=== PATIENT | female | born 1945 | race Caucasian/White ===

== ENCOUNTER 2016-11-03 16:43 | Outpatient (CLI) | payer MEDICARE, OTHER | END 2016-11-03 16:44 | disposition home or self-care (01) | DX: J20.9 Acute bronchitis, unspecified (principal); R05 Cough ==

== ENCOUNTER 2017-03-10 10:06 | Outpatient (CLI) | payer MEDICARE, OTHER ==
[2017-03-10 11:32] LABS: H. PYLORI IGG ANTIBODY Negative (Negative); HPYLORI NEG QC Negative (Negative); HPYLORI POS QC POSITIVE (Positive)
[2017-03-13 20:48] LABS: TEST RESULT REPORT (())
== END 2017-03-10 10:07 | disposition home or self-care (01) ==
LOC: LAB 10:06
PROVIDERS: ATTEND Surgery
DX: K27.9 Peptic ulcer, site unspecified, unspecified as acute or chronic, without hemorrhage or perforation (principal)
CPT/HCPCS: 36415; 81599; 82310; 82941; 87339

== ENCOUNTER 2017-06-30 11:08 | Outpatient (CLI) | payer MEDICARE, OTHER ==
--- NOTE | 2017-06-30 13:15 | Ultrasound Report ---
ULTRASOUND RIGHT NECK: 06/30/2017 CLINICAL INDICATION: Palpable abnormality. TECHNIQUE: Real-time scanning was performed with public service representative static images obtained. FINDINGS: Ultrasound of the right neck was performed, directed to the palpable abnormality identifie d by the patient. The palpable abnormality, just medial to the common carotid artery, correlated wit h the inferior extent of the thyroid cartilage. No other sonographic abnormality is seen. No sonogr aphically suspicious findings are identified. No adenopathy is present. IMPRESSION: PALPABLE ABNORMALITY CORRELATES WITH THE THYROID CARTILAGE. NO SONOGRAPHICALLY SUSPICIO US FINDINGS ARE IDENTIFIED. 13:9:22 JOB #: [id number] EXT JOB #:[id number]
== END 2017-06-30 11:09 | disposition home or self-care (01) ==
LOC: DI 11:08
PROVIDERS: ATTEND Physician Assistant
DX: R22.1 Localized swelling, mass and lump, neck (principal)
CPT/HCPCS: 76536

== ENCOUNTER 2018-01-05 13:10 | Outpatient (CLI) | payer MEDICARE, OTHER ==
--- NOTE | 2018-01-06 14:59 | Mammography Report ---
DIGITAL SCREENING MAMMOGRAM: 01/05/2018 CLINICAL INDICATION: A 72-year-old for screening. COMPARISON: 01/2016, 02/2014, 01/2012, 12/2010. TECHNIQUE: Routine CC and MLO projections were obtained of the breasts. FINDINGS: The breasts demonstrate heterogeneously dense fibroglandular parenchyma bilaterally. Coarse and punctate, typically benign calcifications are present. No suspicious masses, clustered microcalcifications, or regions of architectural distortion are identified. IMPRESSION: BENIGN FINDINGS. RECOMMENDATION: Routine annual screening unless otherwise clinically indicated. BIRADS CATEGORY 2 - BENIGN FINDINGS. STANDARD QUALIFYING STATEMENTS: 1. This examination was reviewed with the aid of Computer-Aided Detection (CAD). 2. A negative or benign imaging report should not delay biopsy if clinically suspicious findings are present. Consider surgical consultation if warranted. More than 5% of cancers are not identified by imaging. 3. Dense breasts may obscure an underlying neoplasm. TD: 01/06/2018 14:58
== END 2018-01-05 13:11 | disposition home or self-care (01) ==
LOC: DI 13:10
PROVIDERS: ATTEND Physician Assistant
DX: Z12.31 Encounter for screening mammogram for malignant neoplasm of breast (principal)
CPT/HCPCS: 77067

== ENCOUNTER 2018-02-09 13:10 | Outpatient (CLI) | payer MEDICARE, OTHER ==
--- NOTE | 2018-02-11 11:56 | DEXA Report ---
DEXA SCAN: 02/09/2018 CLINICAL INDICATION: Postmenopausal. TECHNIQUE: Dual energy x-ray absorptiometry (DXA) was performed on a [employer] system. Regions measured are the AP spine, femoral neck, and, if needed, forearm. COMPARISON: None. In accordance with the International Society for Clinical Densitometry (ISCD) guidelines, data from previous exams may be reanalyzed using current recommendations and techniques. This is done to allow a more accurate basis for comparison with the current study. FINDINGS: The data for the lumbar spine is as follows: REGION BMD (g/cm/cm) T-SCORE Z-SCORE L1 0.915 -1.8 0.5 L2 1.236 0.3 2.6 L3 1.429 1.9 4.2 L4 1.325 1.0 3.3 TOTAL 1.239 0.5 2.8 NOTE: All evaluable vertebrae are used for classification. The data for the hip is as follows: REGION BMD (g/cm/cm) T-SCORE Z-SCORE Neck 0.755 -2.0 0.2 TOTAL 0.827 -1.4 0.7 NOTE: The femoral neck or total proximal femur, whichever is lowest, is used for classification. IMPRESSION: THE WHO CLASSIFICATION BASED ON THE INTERNATIONAL REFERENCE STANDARD IS OSTEOPENIA. THE FRACTURE RISK IS INCREASED. RECOMMENDATION: Patients with diagnosis of osteoporosis or osteopenia should have regular bone mineral density assessment. For those eligible for Medicare, routine testing is allowed once every 2 years. Testing frequency can be increased for patients who have rapidly progressing disease or for those who are receiving medical therapy to restore bone mass. COMMENT: World Health Organization (WHO) definitions for osteoporosis and osteopenia: NORMAL BMD: T-score at 1.0 or higher, fracture risk is low. OSTEOPENIA BMD: T-score between 1.0 and -2.5, fracture risk is increased. OSTEOPOROSIS BMD: T-score at 2.5 or lower, fracture risk high. National Osteoporosis Foundation recommends: 1. Obtain adequate dietary calcium (at least 1200 mg per day) and vitamin D (400 -800 international units per day). 2. Participate, as appropriate, in regular weightbearing and muscle- strengthening exercise. 3. Avoid tobacco use and reduce alcohol and caffeine intake. 4. For more detailed information see the website at www.NOF.org. MTDD
== END 2018-02-09 13:11 | disposition home or self-care (01) ==
LOC: DI 13:10
PROVIDERS: ATTEND Physician Assistant
DX: N95.8 Other specified menopausal and perimenopausal disorders (principal); M85.88 Other specified disorders of bone density and structure, other site
CPT/HCPCS: 77080

== ENCOUNTER 2018-04-16 08:39 | Outpatient (CLI) | payer MEDICARE, OTHER ==
--- NOTE | 2018-04-16 11:26 | Nuclear Medicine Report ---
Procedure Date: 04/16/2018 Accession Number: [id number] / [id number] Procedure: NM - Hepatobiliary HIDA w/o Rx CPT Code: FULL RESULT: EXAM: HEPATOBILIARY SCAN EXAM DATE: 04/16/2018 09:18 AM. CLINICAL HISTORY: HX OF BILROTH II. Evaluation for alkaline reflux is requested. The patient reportedly does not have gallbladder. COMPARISON: None available TECHNIQUE: Following the intravenous administration of 5.1 mCi of Tc99m Mebrofenin, a hepatobiliary scan was done centered on the right upper quadrant region in multiple sequential images and projections. Morphine sulfate given: No. Four-hour delayed images performed: No. FINDINGS: Normal extraction of tracer from the blood pool indicating normal hepatocellular function. The liver size and shape is grossly within normal limits. There is activity visualized within the bile ducts and small bowel. The intrahepatic bile ducts appear prominent. The gallbladder is absent. No enterogastric bile reflux is observed. IMPRESSION: 1. No enterogastric bile reflux is observed. 2. Patent common bile duct. RADIA
== END 2018-04-16 08:40 | disposition home or self-care (01) ==
LOC: DI 08:39
PROVIDERS: ATTEND Surgery
DX: Z90.3 Acquired absence of stomach [part of] (principal); Z90.49 Acquired absence of other specified parts of digestive tract
CPT/HCPCS: 78226

== ENCOUNTER 2018-12-15 08:13 | Outpatient (CLI) | payer MEDICARE, OTHER | END 2018-12-15 08:14 | disposition home or self-care (01) | LOC: DI 08:13 | PROVIDERS: ATTEND Specialist | DX: I20.9 Angina pectoris, unspecified (principal); R60.0 Localized edema; I08.0 Rheumatic disorders of both mitral and aortic valves; R10.11 Right upper quadrant pain; K83.8 Other specified diseases of biliary tract; Z90.49 Acquired absence of other specified parts of digestive tract; N20.0 Calculus of kidney | CPT/HCPCS: 76705; 93306 ==

== ENCOUNTER 2018-12-15 08:15 | Outpatient (CLI) | payer MEDICARE, OTHER ==
--- NOTE | 2018-12-15 12:06 | Ultrasound Report ---
Reason: RUQ,ABD PAIN Procedure Date: 12/15/2018 Accession Number: [id number] / [id number] Procedure: US - Abdomen Limited CPT Code: FULL RESULT: EXAM: ABDOMEN ULTRASOUND LIMITED, RUQ EXAM DATE: 12/15/2018 08:26 AM. CLINICAL HISTORY: Right upper quadrant, abdominal pain. COMPARISON: ABDOMEN LIMITED 02/04/2016 9:32 AM. TECHNIQUE: Real-time scanning was performed with static images obtained. FINDINGS: Liver: Normal in size and echotexture. Right lobe measures at least 14.7 cm. Main portal vein flow: Hepatopetal. A triangular shaped hyperechoic region described near the left lobe of the liver measures 2.4 1.6 x 2.5 cm and appears geographic without evidence of mass effect, not characterized. Gallbladder: Surgically absent. Biliary System: CBD measures up to 10 mm. There is also intrahepatic biliary ductal dilation. Other: The right kidney measures up to 9.9 cm and appears unremarkable with the exception of a nonobstructing 0.5 cm inferior pole calculus. IMPRESSION: Status post cholecystectomy with extra and intrahepatic biliary ductal dilation, somewhat greater then expected status post cholecystectomy. Recommend correlation to patient's symptoms and biliary markers such as alkaline phosphatase and bilirubin. If abnormal, recommend MRCP. Uncharacterized hyperechoic 2.5 cm finding in the left lobe of the liver. Differential diagnosis includes focal fatty infiltration, atypical appearance of a hemangioma as well as less likely a subtle mass. Options include short-term imaging follow-up (ultrasound in 3 months) versus complete characterization by multiphase liver imaging by CT or MRI. If MRCP is pursued, recommend performing this examination with and without contrast to characterize the finding at the same time, MRI liver mass protocol with MRCP. Nonobstructing left renal calculus, 5 mm. RADIA
== END 2018-12-15 08:16 | disposition home or self-care (01) ==
LOC: DI 08:15
PROVIDERS: ATTEND Internal Medicine
DX: R10.11 Right upper quadrant pain (principal); K83.8 Other specified diseases of biliary tract; Z90.49 Acquired absence of other specified parts of digestive tract; N20.0 Calculus of kidney
CPT/HCPCS: 76705

== ENCOUNTER 2020-07-06 08:36 | Outpatient (CLI) | payer MEDICARE, OTHER | END 2020-07-06 08:37 | disposition critical access hospital (66) | LOC: EMS 08:36 | PROVIDERS: ATTEND Surgery | DX: R55 Syncope and collapse (principal); M54.6 Pain in thoracic spine | CPT/HCPCS: A0425; A0427 ==

== ENCOUNTER 2020-07-06 08:59 | Inpatient (IN) | payer MEDICARE, OTHER ==
[2020-07-06] MEDS ORDERED: SODIUM CHLORIDE 0.9% 1,000 ML IV STA ×2 (09:08→10:20)
[2020-07-06 09:35] LABS: BILIRUBIN,URINE NEGATIVE (NEGATIVE); GLUCOSE, URINE (UA) NEGATIVE (NEGATIVE); KETONES,URINE (UA) NEGATIVE (NEGATIVE); LEUKOCYTE ESTERASE, URINE SMALL (NEGATIVE); NITRITE,URINE NEGATIVE (NEGATIVE); OCCULT BLOOD,URINE SMALL (NEGATIVE); PH,URINE 5.5 PH (5.0-7.5); PROTEIN,URINE NEGATIVE (NEGATIVE); UROBILINOGEN,URINE 0.2 (NORMAL) E.U./dL (NORMAL)
[2020-07-06 09:38] LABS: BASOPHILS % (AUTO) 0.3 %; EOSINOPHILS % (AUTO) 0.1 %; HGB - HEMOGLOBIN 8.1 g/dL (12.0-16.0); LYMPHOCYTES % (AUTO) 3.8 %; MEAN CORPUSCULAR HEMOGLOBIN 33.5 pg (27.0-31.0); MEAN CORPUSCULAR HGB CONC 32.8 g/dL (32.0-36.0); MEAN CORPUSCULAR VOLUME 102.1 fL (81.0-99.0); MEAN PLATELET VOLUME 9.1 fL (7.9-10.8); PLT - PLATELET COUNT 280 10^3/uL (130-450); RED BLOOD COUNT 2.42 10^6/uL (4.20-5.40); WHITE BLOOD COUNT 18.8 x10^3/uL (4.8-10.8)
[2020-07-06 09:44] LABS: CLARITY,URINE SL. CLOUDY (CLEAR)
[2020-07-06 09:47] LABS: ABNORMAL LYMPHS % (MANUAL) 0 %
[2020-07-06 09:53] LABS: BACTERIA,URINE Many /HPF (None Seen); RBC,URINE 0-5 /HPF (0-5); SQUAMOUS EPITHELIAL CELL,UR FEW Squamous (<= Few)
[2020-07-06 09:53] LABS: ALBUMIN 2.1 g/dL (3.2-5.5); ALBUMIN/GLOBULIN RATIO 0.9 (1.0-2.2); BILIRUBIN,TOTAL 0.6 mg/dL (0.2-1.0); CALCIUM 8.1 mg/dL (8.5-10.3); CREATININE 0.7 mg/dL (0.4-1.0); INR 1.4 (0.8-1.2); PT - PROTHROMBIN TIME 15.1 secs (9.9-12.6); TOTAL PROTEIN 4.5 g/dL (6.7-8.2)
[2020-07-06] MEDS ORDERED: cefTRIAXone 2 GM in SODIUM CHLORIDE 0.9% MINIBAG 100 ML IV STA (09:57)
--- NOTE | 2020-07-06 10:01 | ED Physician Documentation ---
History of Present Illness - Stated complaint Stated Complaint: ALOC - Chief complaint Chief Complaint: Neuro - History obtained from History obtained from: Patient, Family - Additonal information Additional information: Patient comes emergency department after experiencing a near-syncopal episode this morning. She states that she went to get out of bed and felt lightheaded and fell to the floor. She states that she did not completely lose consciousness, and knows she did not hit her head. She denies any headache or neck pain. She called for her who states that the patient seemed a li ttle "out of it" and that he helped her up. The patient states she has generalized weakness in her arms and legs which has been ongoing, and that this was not any worse than usual. She denies any focal weakness. No chest pain or shortness of breath. She states she has had to urinate frequently. Patient denies any fevers at home, but medics did report a temperature of 102 in route. Patient states that she feels slightly lightheaded in bed still and just does not feel well. The patient has her blood pressure checked at home on a daily basis, and states that she is normally in the low 100s over 50s. No other complaints at this time. No cough or sore throat. No shortness of breath. Review of Systems Ten Systems: 10 systems reviewed and negative Constitutional: reports: Other (Generalized weakness) Eyes: reports: Reviewed and negative Ears: reports: Reviewed and negative Nose: reports: Reviewed and negative Throat: reports: Reviewed and negative Cardiac: reports: Reviewed and negative Respiratory: reports: Reviewed and negative GI: denies: Nausea, Vomiting, Diarrhea : reports: Frequency Skin: reports: Reviewed and negative Musculoskeletal: reports: Reviewed and negative Neurologic: reports: Generalized weakness, Syncope (Near, secondary to lightheadedness), Altered mental status (Transient, after fall). 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: Hysterectomy - Present Medications Home Medications: Ambulatory Orders Medication Instructions Recorded Confirmed Amitriptyline HCl 150 mg PO DAILY 12/15/14 07/24/16 Ascorbic Acid [Vitamin C] 1,000 mg PO DAILY 12/15/14 07/24/16 Calcium Citrate 500 mg PO DAILY 12/15/14 07/24/16 Clobetasol Propionate 1 applic TP PRN PRN 12/15/14 07/24/16 Cranberry Fruit Extract [Cranberry] 300 mg PO DAILY 12/15/14 07/24/16 Docusate Sodium [Stool Softener] 100 mg PO DAILY 12/15/14 07/24/16 Estrogens, Conjugated [Premarin] 0.3 mg PO DAILY 12/15/14 07/24/16 Gabapentin 300 mg PO TID 12/15/14 07/24/16 Ginkgo Biloba 120 mg PO DAILY 12/15/14 07/24/16 Ibuprofen 200 mg PO DAILY 12/15/14 07/24/16 Iron 65 mg PO DAILY 12/15/14 07/24/16 Metoclopramide [Reglan] 10 mg PO TID 12/15/14 07/24/16 Montelukast Sodium 10 mg PO DAILY 12/15/14 07/24/16 Multivitamin [Multivitamins] 1 each PO DAILY 12/15/14 07/24/16 [place]-3 Fatty Acids [Fish Oil] 1,000 mg PO DAILY 12/15/14 07/24/16 Omeprazole 20 mg PO BID 12/15/14 07/24/16 Oxybutynin [Ditropan] 15 mg PO DAILY 12/15/14 07/24/16 Trazodone HCl 100 mg PO TID 12/15/14 07/24/16 methocarbamoL [Methocarbamol] 750 mg PO DAILY PRN 12/15/14 07/24/16 Fluticasone/Salmeterol [Advair 1 each IH BID 07/24/16 07/24/16 250-50 Diskus] Levothyroxine Sodium 25 mcg PO BID 07/24/16 07/24/16 buPROPion [Wellbutrin Sr] 1 tab PO DAILY 07/24/16 07/24/16 Acetaminophen [Tylenol] 500 mg PO PRN PRN 07/06/20 Albuterol Sulfate [Albuterol 2 puffs IH Q4H PRN 07/06/20 Sulfate Hfa] Furosemide [Lasix] 20 mg PO DAILY 07/06/20 Halobetasol Propionate 1 applic TP PRN PRN 07/06/20 Hydrocodone/Acetaminophen 5 - 325 mg PO Q6H PRN 07/06/20 [Hydrocodon-Acetaminophen 5-325] Mupirocin 2% Oint [Bactroban 2% 1 applic TP PRN PRN 07/06/20 Oint] Neomycin Joel/Bacitrac Zn/Poly 1 applic TP PRN PRN 07/06/20 [Neosporin Ointment] Sucralfate [Carafate] 1 gm PO QID 07/06/20 - Allergies Allergies/Adverse Reactions: Allergies Allergy/AdvReac Type Severity Reaction Status Date / Time latex AdvReac Severe Rash Verified 07/06/20 09:14 - Social History Does the pt smoke?: No Smoking Status: Never smoker Does the pt drink ETOH?: Yes Does the pt have substance abuse?: No - Immunizations Immunizations are current?: Yes PD ED PE NORMAL - Vitals Vital signs reviewed: Yes - General General: Alert and oriented X 3, No acute distress - HEENT HEENT: Atraumatic, PERRL, EOMI, Moist mucous membranes - Neck Neck: Supple, no meningeal sign, No bony TTP - Cardiac Cardiac: RRR, No murmur, Strong equal pulses - Respiratory Respiratory: No respiratory distress, Clear bilaterally - Abdomen Abdomen: Soft, Non distended, Other (Mild, right flank) - Back Back: No CVA TTP, No spinal TTP - Derm Derm: Normal color, Warm and dry, No rash - Extremities Extremities: No deformity, Other (Trace pitting edema) - Neuro Neuro: Alert and oriented X 3, automatic pinsetter adjuster 2-12 intact, No motor deficit, No sensory deficit, Normal speech - Psych Psych: Normal mood, Normal affect Results - Vitals Vitals: Vital Signs - 24 hr 07/06/20 07/06/20 07/06/20 09:00 09:55 09:57 Temperature 37.7 C H Heart Rate 107 H 102 H 103 H Respiratory 15 28 H 26 H Rate Blood Pressure 147/132 H 96/44 L 95/46 L O2 Saturation 96 94 92 07/06/20 07/06/20 07/06/20 10:27 10:50 10:57 Temperature 37.2 C Heart Rate 102 H 102 H 101 H Respiratory 28 H 18 26 H Rate Blood Pressure 94/45 L 98/55 L 93/40 L O2 Saturation 92 98 93 Oxygen O2 Source Room air - EKG (time done) 0914 Rate: Rate (enter#) (103) Rhythm: Sinus tachycardia [place]: Normal Intervals: Normal SC QRS: Normal Ischemia: Normal ST segments. No: T wave inversion Compare to prior EKG: Old EKG unavailable - Labs Labs: Laboratory Tests 07/06/20 07/06/20 07/06/20 09:15 09:25 09:25 WBC 18.8 H RBC 2.42 L Hgb 8.1 L Hct 24.7 L MCV 102.1 H MCH 33.5 H MCHC 32.8 RDW 13.0 Plt Count 280 MPV 9.1 Neut # (Auto) Not Reportable Lymph # (Auto) Not Reportable [place] # (Auto) Not Reportable Eos # (Auto) Not Reportable Baso # (Auto) Not Reportable Absolute Nucleated RBC Not Reportable Total Counted 100 Band Neuts % (Manual) 18 H Abnorm Lymph % (Manual) 0 Metamyelocytes % 2 H Nucleated RBC % Not Reportable Neutrophils # (Manual) 16.2 H Lymphocytes # (Manual) 1.7 Monocytes # (Manual) 0.4 Eosinophils # (Manual) 0.0 Basophils # (Manual) 0.2 H Differential Comment MANUAL DIFFERENTIAL WBC Morphology NORMAL APPEARANCE Platelet Estimate NORMAL (130-450,000) Platelet Morphology NORMAL ROSALBA RBC Morph Micro Appear 1+ MACROCYTOSIS PT 15.1 H INR 1.4 H Sodium Potassium Chloride Carbon Dioxide Anion Gap BUN Creatinine Estimated GFR (MDRD) Glucose Lactic Acid Calcium Total Bilirubin AST ALT Alkaline Phosphatase Troponin I High Sens Total Protein Albumin Globulin Albumin/Globulin Ratio Lipase Urine Color YELLOW Urine Clarity SL. CLOUDY Urine pH 5.5 Ur Specific Rufe 1.010 Urine Protein NEGATIVE Urine Glucose (UA) NEGATIVE Urine Ketones NEGATIVE Urine Occult Blood SMALL H Urine Nitrite NEGATIVE Urine Bilirubin NEGATIVE Urine Urobilinogen 0.2 (NORMAL) Ur Leukocyte Esterase SMALL H Urine RBC 0-5 Urine WBC 11-25 H Ur Squamous Epith Cells FEW Squamous Urine Bacteria Many H Ur Microscopic Review INDICATED Urine Culture Comments INDICATED 07/06/20 07/06/20 07/06/20 09:25 09:25 09:25 WBC RBC Hgb Hct MCV MCH MCHC RDW Plt Count MPV Neut # (Auto) Lymph # (Auto) [place] # (Auto) Eos # (Auto) Baso # (Auto) Absolute Nucleated RBC Total Counted Band Neuts % (Manual) Abnorm Lymph % (Manual) Metamyelocytes % Nucleated RBC % Neutrophils # (Manual) Lymphocytes # (Manual) Monocytes # (Manual) Eosinophils # (Manual) Basophils # (Manual) Differential Comment WBC Morphology Platelet Estimate Platelet Morphology RBC Morph Micro Appear PT INR Sodium 136 Potassium 2.6 L Chloride 99 L Carbon Dioxide 27 Anion Gap 10.0 BUN 23 H Creatinine 0.7 Estimated GFR (MDRD) 81 L Glucose 115 H Lactic Acid 1.6 Calcium 8.1 L Total Bilirubin 0.6 AST 32 ALT 19 Alkaline Phosphatase 40 L Troponin I High Sens 10.8 Total Protein 4.5 L Albumin 2.1 L Globulin 2.4 Albumin/Globulin Ratio 0.9 L Lipase 17 L Urine Color Urine Clarity Urine pH Ur Specific Rufe Urine Protein Urine Glucose (UA) Urine Ketones Urine Occult Blood Urine Nitrite Urine Bilirubin Urine Urobilinogen Ur Leukocyte Esterase Urine RBC Urine WBC Ur Squamous Epith Cells Urine Bacteria Ur Microscopic Review Urine Culture Comments PD MEDICAL DECISION MAKING - ED course Complexity details: reviewed results, re-evaluated patient, considered differential, d/w patient, d/w family ED course: Patient was worked up with labs, urinalysis, and blood cultures, and treated with IV fluids. She was found to have a positive urinalysis, white blood cell count of 18, and a normal lactic acid level. Her potassium was 2.6. Her urinalysis was positive for infection. The patient was started on Rocephin and a K rider. Her heart rate remained in the low 100s and her blood pressure in the 90s over 50s. I felt the patient should be admitted to the hospital for her urinary tract infection and possible early sepsis. Spoke with Dr. Womack, who agreed to admit the patient to her service. - Sepsis Event Current Stage of Sepsis: Sepsis Possible source of Sepsis: Genitourinary Mental/Cognitive Status: Alert/Oriented X3, Normal for patient Capillary refill: Less than 2 seconds Peripheral Pulse Strength: 3+ Normal Departure - Departure Disposition: 66 [facility] DC/Xfer Clinical Impression: Hypokalemia Sepsis Qualifiers: Sepsis type: sepsis due to unspecified organism Sepsis acute organ dysfunction status: without acute organ dysfunction Qualified Code(s): A41.9 - Sepsis, unspecified organism Urinary tract infection Qualifiers: Urinary tract infection type: acute cystitis Hematuria presence: without hematuria Qualified Code(s): N30.00 - Acute cystitis without hematuria Condition: Serious Discharge Date/Time: 07/06/20 11:40
--- NOTE | 2020-07-06 10:11 | XRAY Report ---
PROCEDURE: Chest 1 View X-Ray INDICATIONS: chest pain TECHNIQUE: One view of the chest was acquired. COMPARISON: 11/03/2016 2 view chest. FINDINGS: Surgical changes and devices: None. Lungs and pleura: No pleural effusions or pneumothorax. Lungs are clear. Mediastinum: Mediastinal contours appear normal. Heart size is normal. Bones and chest wall: No suspicious bony lesions. Overlying soft tissues appear unremarkable. IMPRESSION: Normal for age, mildly reduced inspiratory volume, source of chest pain is not found. Reviewed by: Vu Trujillo MD on 07/06/2020 10:10 AM PDT Approved by: Vu Trujillo MD on 07/06/2020 10:10 AM PDT Station ID: [id number]
[2020-07-06 10:21] LABS: BAND NEUTROPHILS % (MANUAL) 18 %; BASOPHILS # (MANUAL) 0.2 10^3/uL (0-0.1); BASOPHILS % (MANUAL) 1 %; LYMPHOCYTES # (MANUAL) 1.7 10^3/uL (1.5-3.5); LYMPHOCYTES % (MANUAL) 9 %; METAMYELOCYTES % (MANUAL) 2 %; MONOCYTES # (MANUAL) 0.4 10^3/uL (0.0-1.0)
[2020-07-06] MEDS ORDERED: POTASSIUM CHLOR 10 MEQ/100 ML 10 MEQ/100 ML BAG IV STA (10:21)
[2020-07-06 10:27] LABS: PLATELET ESTIMATE, MANUAL NORMAL (130-450,000) (NORMAL)
[2020-07-06 10:32] LABS: DIFFERENTIAL COMMENT MANUAL DIFFERENTIAL; PLATELET MORPHOLOGY NORMAL APP (NORMAL)
[2020-07-06] MEDS ORDERED: ONDANSETRON ODT 4 MG TABLET TL PRN (11:00)
[2020-07-06] MEDS ORDERED: ONDANSETRON 4 MG/2 ML VIAL IVP PRN (11:00)
[2020-07-06] MEDS ORDERED: SODIUM CHLORIDE FLUSH 0.9% 10 ML SYRINGE IVP PRN (11:00)
--- NOTE | 2020-07-06 11:15 | HISTORY & PHYSICAL EXAMINATION ---
Chief Complaint - Chief Complaint Chief Complaint: lightheaded after getting out of bed w fall History of Present Illness - Admitted From Admitted From:: Home/ER - History Obtained From Records Reviewed: [facility] History obtained from: Dr. Alvarez and patient Exam Limitations: none - History of Present Illness HPI Comment/Other: Female who has reflux disease, anxiety, asthma, and palpitations that presents with leg weakness for several days and this morning having near syncope. She denies any recent fevers, chills, cough, shortness of breath. No chest congestion no URI symptoms. She has had urgency and frequency. She had gotten out of bed and was so lightheaded she fell to the floor. She did not lose consciousness. Her try to get her up but her weakness was so severe that they came to the ER. She usually has low blood pressures in the low 100s over 50s. She cannot pinpoint when it started, but she just does not feel good. She is tearful when she says this. She just feels depressed, hopeless, but denies suicidal intention. She wishes people would just leave her alone. She does not want to leave the house. She has no get up and go. Appetite has gone down a little bit with this as well. She was triaged at 9 AM and brought in by private vehicle. Temperature was 37.7. Heart rate was 107. Blood pressure 147/132. 96% on room air. Complaining of a 9 out of 10 pain over her right arm and right hip where she fell. She was evaluated by Dr. Alvarez. She is an alert oriented female, with no dehydration. No respiratory distress. Mild right flank pain. Trace pitting edema. White cell count is 18.8. Urinalysis has many bacteria and a few squamous cells. INR is 1.4. Potassium is very low at 2.6. BUN mildly elevated at 23 but creatinine stable for her. Liver enzymes are normal. However this patient has a very low protein at 4.5, albumin at 2.1. Calcium is 8.1. Troponin is 10.8. In looking at her weight she was 55 kg in October 2015. 52.4 kg July 2016. 49 kg April 2019. And 48.5 kg today. Chest x-ray has mildly reduced respiratory volume but no infiltrate. She was treated with 2 g of Rocephin in the emergency room, 1 L of fluid. Blood pressure has started to come down and she is 93-95 systolic. Still monitor tachycardic at 101-102. 93% on room air. Dr. Alvarez is asking us to admit her as sepsis from a UTI. She does not feel that she needs a central line or transfer to ICU. History - Past Medical History Cardiovascular: reports: Hypertension, Angina (With rule out MT admission in with negative troponins), Murmur (She was sent for an echocardiogram November 2018. Ejection fraction normal at 55 to 60%. Moderate increase in left atrial volume index. Trace aortic regurgitation. Moderate mitral regurgitation. Evidence of patent foramen ovale versus atrial septal defect with [id number] shunting.), Arrhythmia (Described as palpitations) Respiratory: reports: Asthma Endocrine/Autoimmune: reports: HyPERthyroidism GI: reports: GERD (Attributed to alkaline reflux after Billroth II. Hepatobiliary HIDA scan done March 2018 shows no enterogastric bile reflux. Patent common bile duct.), GI bleed (with Bilroth II), Chronic constipation, Other (While getting an ultrasound for right upper quadrant pain in November 2018, she had a triangular-shaped hyperechoic region near the left lobe of the liver measuring 2.4 x 1.6 x 2.5 cm. Differential diagnosis included focal fatty infiltration, atypical appearance of hemangioma as less likely a subtl) FINANCE MGR: reports: Other ([id number]. I child was stillborn at . ) : reports: Chronic bladder infection HEENT: reports: None Psych: reports: Depression, Anxiety Musculoskeletal: reports: Osteoarthritis, Osteoporosis (Borderline with T score -2.0 at the femoral neck, total hip is -1.4. Fracture risk is felt to be increased according to World Health Organization definitions for osteoporosis and osteopenia.), Chronic back pain (Intermittent, and waxing and waning its intensity. MRI of the lumbar spine showed generalized aging changes of anterolisthesis, osteoarthritis, broad-based disc bulging. She had moderate julia tral canal stenosis at L4-5.) Derm: reports: Other (prone to nonspecific rashes) MRSA Hx?: No - Past Surgical History General: reports: Cholecystectomy, Appendectomy, Bowel surgery, EGD (July 2016 for reflux. Gastritis near anastomosis. Multiple erosions. Retroflexed esophageal views without abnormalities. She was to be on twice daily omeprazole and Carafate.) Ortho: reports: Rotator cuff repair ( 12/2014 but left shoulder also w tear.) /FINANCE MGR: reports: section, Hysterectomy HEENT: reports: Cataracts (surgery 10/2015) - Family & Social History Family History Comment/Other: Mom had Alzheimer's and of approximately age 97. Dad 82 with an enlarged heart, History of prostate cancer. 1 brother at age 39 from an aneurysm. Second brother alive and well. 2 d aughters healthy Living arrangement: At home Living Situation: With spouse/s.o. Social History Notes: and lives with her 3rd . He had 2 daughters from a previous relationship. She had 2 daughters with her first . second. With 3rd for 43 years. 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 She drinks 1 drink a night on a nightly basis. Either wine or scotch. Quit smoking approximately 1975. Prior to that she smoked 1 pack/day for 10 years. No hx of recreational substances. - Substance History Use: Uses substance without health or social issues: Alcohol Abuse: Recurrent use of substance despite neg consequences: NONE Dependence: Experiences withdrawal or developed tolerances: NONE - POLST Patient has POLST: No POLST Status: Full Code (She and her have talked about this. He is a DO NOT RESUSCITATE and never wants to be disabled and leave the house. Although she is talked about this with him, she has never really come to a conclusion. As such, by default, she will be full code until she decides.) Meds/Allgy - Home Medications Home Medications: Ambulatory Orders Medication Instructions Recorded Confirmed Amitriptyline HCl 150 mg PO DAILY 12/15/14 07/24/16 Ascorbic Acid [Vitamin C] 1,000 mg PO DAILY 12/15/14 07/24/16 Calcium Citrate 500 mg PO DAILY 12/15/14 07/24/16 Clobetasol Propionate 1 applic TP DAILY 12/15/14 07/24/16 Cranberry Fruit Extract [Cranberry] 300 mg PO DAILY 12/15/14 07/24/16 Docusate Sodium [Stool Softener] 100 mg PO BID 12/15/14 07/24/16 Estrogens, Conjugated [Premarin] 0.3 mg PO DAILY 12/15/14 07/24/16 Gabapentin 300 mg PO DAILY 12/15/14 07/24/16 Ginkgo Biloba 120 mg PO DAILY 12/15/14 07/24/16 Hydrocodone/Acetaminophen 1 each PO QID 12/15/14 07/24/16 [Hydrocodon-Acetaminophen 5-325] Ibuprofen 200 mg PO DAILY 12/15/14 07/24/16 Iron 65 mg PO DAILY 12/15/14 07/24/16 Metoclopramide [Reglan] 10 mg PO AC 12/15/14 07/24/16 Montelukast Sodium 10 mg PO DAILY 12/15/14 07/24/16 Multivitamin [Multivitamins] 1 each PO DAILY 12/15/14 07/24/16 Hartshorne-3 Fatty Acids [Fish Oil] 1,000 mg PO DAILY 12/15/14 07/24/16 Omeprazole 20 mg PO DAILY 12/15/14 07/24/16 Oxybutynin [Ditropan] 15 mg PO DAILY 12/15/14 07/24/16 Trazodone HCl 50 mg PO TID 12/15/14 07/24/16 methocarbamoL [Methocarbamol] 750 mg PO TID 12/15/14 07/24/16 Albuterol 2.5 mg INH Q4H PRN 10/31/15 07/24/16 Fluticasone/Salmeterol [Advair 1 each IH BID 07/24/16 07/24/16 250-50 Diskus] Levothyroxine Sodium 25 mcg PO DAILY 07/24/16 07/24/16 buPROPion [Wellbutrin Sr] 1 tab PO DAILY 07/24/16 07/24/16 Hydrocodone/Acetaminophen 1 - 2 each PO Q6H PRN #14 tablet 05/13/19 [Hydrocodon-Acetaminophen 5-325] - Allergies Allergies/Adverse Reactions: Allergies Allergy/AdvReac Type Severity Reaction Status Date / Time latex AdvReac Severe Rash Verified 07/06/20 09:14 Review of Systems - Constitutional Constitutional: reports: Fatigue, Malaise, Weakness, Poor appetite. denies: Fe jesse, Chills, Diaphoresis, Night sweats - Eyes Eyes: denies: Pain, Irritation, Amaurosis, Blurred vision, Vision loss, Dipolpia - Ears, Nose & Throat Ears, Nose & Throat: denies: Ear pain, Hearing loss, Tinnitus, Nasal obst ruction, Nasal congestion, Postnasal drainage, Sore throat, Hoarseness - Cardiovascular Cariovascular: reports: Palpitations, Lightheadedness, Exertional dyspnea, Decr. exercise tolerance (This is been chronic for several months if not over a year. She finds her self always having to use a grocery cart at [employer] to allow her to finish grocery shopping. If she did not have the grocery cart, she does not think she could complete her shopping. But it has been as subtle decrease in ex). denies: Chest pain, Edema, Syncope - Respiratory Respiratory: reports: SOB with exertion. denies: Cough, Sputum production, Whee zing, Snoring, Orthopnea, SOB at rest - Gastrointestinal Gastrointestinal: reports: Abdominal pain (Started a week ago. Right lower quadrant going up into the right mid abdomen. She always has chronic back pain so it took her a while to realize that it was her abdomen was hurting. No change in bowel habits.), Abdominal distention, Rectal bleeding (Chronic, only when she wipes after a bowel movement. Bright red blood on the toilet paper. Unchanged for a very long time.), Nausea, Reflux/heartburn, Bloating, Poor appetite. denies: Change in bowel habits, Black stools, Bloody stools, Vomiting, Coffee grounds emesis - Genitourinary Genitourinary: reports: Dysuria, Frequency, Urgency, Incontinence, Flank pain, Nocturia. denies: Hematuria, Urethral discharge - Musculoskeletal Musculoskeletal: reports: Back pain (Constantly. Chronic for decades.), Joint pain (Shoulders hips and knees. Always stiff, always ache. No swelling no redness no heat.). denies: Muscle pain - Integumentary Integumentary: reports: Rash (Red splotchy rash "comes and goes". She says there is no rhyme or reason why she gets it. Is been going on for decades.). denies: Pruritis, Lesions, Dryness - Neurological Neurological: reports: General weakness, Dizziness. denies: Focal weakness, Headache, Memory problems, Pre-existing deficit, Abnormal gait, Seizures - Psychiatric Psychiatric: reports: Depression (Always has a problem with depression. And she cannot put her finger on why it has gotten so bad over the last couple of months. Again denies being suicidal. She burst into tears as she talks about this.), Anxiety. denies: Suicidal, Delusions, Hallucinations, Homicidal - Endocrine Endocrine: denies: Polyuria, Polydypsia - Hematologic/Lymphatic Hematologic/Lymphatic: denies: Anemia, Bruising, Petechiae Prior Level of Functionality: Independent with activities of daily living. She feeds her self, dresses herself. Rarely drives a car now. Her pays the bills. She can do laundry, cleaning the house. She is much slower than she used to be. The only thing that slows her down is her decreased endurance, fatigue, and joint pain. She does not use a walker or cane. Exam - Vital Signs Reviewed Vital Signs: Yes Vital Signs: Vital Signs x48h Temp Pulse Resp BP Pulse Ox 07/06/20 10:57 101 H 26 H 93/40 L 93 07/06/20 10:50 37.2 C 102 H 18 98/55 L 98 07/06/20 10:27 102 H 28 H 94/45 L 92 07/06/20 09:57 103 H 26 H 95/46 L 92 07/06/20 09:55 102 H 28 H 96/44 L 94 07/06/20 09:00 37.7 C H 107 H 15 147/132 H 96 - Physical Exam General Appearance: positive: No acute distress, Alert, Other (4 foot 11 elderly female who weighs 50.5 kg. Voice is low, scratchy, and she usually appears near tears throughout the entire history and physical. Very anhedonic.) Eyes Bilateral: positive: PERRL, EOMI ENT: positive: Pharynx nml Neck: positive: No JVD. negative: Lymphadenopathy (R), Lymphadenopathy (L), Stiff neck Respiratory: positive: Chest non-tender. negative: Wheezes, Rales, Rhonchi Cardiovascular: positive: Regular rate & rhythm, Systolic murmur. negative: Gallop/S4, Friction rub Peripheral Pulses: positive: 1+ Abdomen: positive: No organomegaly, Nml bowel sounds, No distention, Tenderness (Right mid abdomen, with deep palpation.). negative: Guarding, Rebound Back: positive: CVA tenderness (R). negative: CVA tenderness (L) Skin: positive: Warm, Dry, Pallor Extremities: positive: Non-tender, Full ROM, Nml appearance, Pedal edema (trace, nonpitting) Neurologic/Psychiatric: positive: Oriented x3, CN's nml (2-12), Motor nml, Weakness, Other (she appears frail, depressed, constantly near tears. This is not related to this admission but a more chronic problem.) Sepsis Event Note (H) - Evaluation Possible source of Sepsis: positive: Genitourinary Conclusion/Plan - Problem List (1) Sepsis Conclusion/Plan: She meets criteria with fever, white cell count, tachycardia. Her low blood pressure is not felt to be shock in that she always runs low at home. Source is felt to be /UTI. Plan: Inpatient status to [facility] initially Frequent vital signs to make sure shock does not develop with transfer to ICU Sepsis order set/protocol Qualifiers: Sepsis type: sepsis due to unspecified organism Sepsis acute organ dysfunction status: without acute organ dysfunction Qualified Code(s): A41.9 - Sepsis, unspecified organism (2) Urinary tract infection Conclusion/Plan: Order sets for sepsis protocol use Rocephin. She is received 2 g in the emergency room. Will start 1 g daily. Plan: Adjust antibiotics on the basis of blood or urine cultures. Retroperitoneal ultrasound to make sure the flank pain is not pyelonephritis Qualifiers: Urinary tract infection type: acute cystitis Hematuria presence: without hematuria Qualified Code(s): N30.00 - Acute cystitis without hematuria (3) Hypokalemia Conclusion/Plan: Started on supplementation in the emergency room. We will recheck levels again this afternoon to make sure she is adequately supplemented. (4) Protein, serum, decreased level Conclusion/Plan: 4 kg weight loss noted in record between last year and this year. We will have nutrition consult assess. (5) HTN (hypertension) Conclusion/Plan: By history. In looking at her medication list she is not on any hypertensive medications. Family states that her blood pressure usually low in the low 100s. Here she is 93-98 systolic after initial presentation. Plan: Reassess after 2 L of normal saline Qualifiers: Hypertension type: essential hypertension Qualified Code(s): I10 - Essential (primary) hypertension (6) History of asthma Conclusion/Plan: Medication list includes nebulizers, Singulair. We will continue with as needed nebulizers here, daily Singulair. (7) Depression with anxiety Conclusion/Plan: Medication list shows her to be on Wellbutrin and trazodone. We will resume those medications while here. - Lab Results Lab results reviewed: Yes Fish Bones: 07/06/20 09:25 07/06/20 09:25 - Diagnostic Imaging Results Diagnostic Imaging Results: positive: Final report reviewed Diagnostic Imaging Results Comments: Chest x-ray with mildly reduced inspiratory volume. No pleural effusions, pneumothorax, infiltrates. Core Measures - Anticipated LOS I expect patient to be DC'd or transferred within 96 hours.: Yes - DVT/VTE - Prophylaxis VTE/DVT Device ordered at admit?: Yes
[2020-07-06] MEDS: oxyCODONE 5 MG TABLET PO PRN ×2 (12:34→21:31)
[2020-07-06] MEDS ORDERED: ALBUTEROL NEB 2.5 MG/3 ML INH PRN (15:58)
[2020-07-06] MEDS: ACETAMINOPHEN 325 MG TABLET PO PRN (16:44)
--- NOTE | 2020-07-06 18:14 | PHARMACY PROGRESS NOTE ---
- Best Possible Medication History Admit Date and Time: 07/06/20 1100 Processed by: Pharmacy Medication History completed: Yes Patient Interview: Completed Secondary Source(s): Written medication list, Spouse/Significant other, Physician records (NOTES PROVIDED WHERE PATIENT-REPORTED MEDICATION INFO DIFFERED FROM MD RECORDS) As the person ultimately responsible for medication therapy, providers are able to order a medication from an existing home medication list in [facility] via the "Reconcile Routine" prior to Confirmation of that medication by sales support technician. Such practice is discouraged except when the physician, in their clinical judgment, deems that a medical need exists for a medication without regard to previous use.
[2020-07-06] MEDS ORDERED: POTASSIUM CHLORIDE 20 MEQ TABLET PO ONE (19:14)
[2020-07-06] MEDS: FORMOTEROL FUMARATE NEB 20 MCG/2 ML INH SCH (19:21)
[2020-07-06] MEDS: BUDESONIDE 0.5 MG/2 ML NEB INH SCH (19:22)
[2020-07-06] MEDS: POTASSIUM CHLOR 10 MEQ/100 ML 10 MEQ/100 ML BAG IV SCH ×2 (20:29→22:09)
[2020-07-06] MEDS: SODIUM CHLORIDE FLUSH 0.9% 10 ML SYRINGE IVP SCH (20:29)
[2020-07-06] MEDS: GABAPENTIN 300 MG CAPSULE PO SCH (21:24)
[2020-07-06] MEDS: traZODone 50 MG TABLET PO SCH (21:24)
[2020-07-06] MEDS: AMITRIPTYLINE 25 MG TABLET PO SCH (21:24)
[2020-07-07] MEDS: SODIUM CHLORIDE FLUSH 0.9% 10 ML SYRINGE IVP SCH ×4 (00:14→23:43)
[2020-07-07] MEDS: ACETAMINOPHEN 325 MG TABLET PO PRN ×2 (00:22→19:23)
[2020-07-07 06:15] LABS: BASOPHILS # (AUTO) 0.1 10^3/uL (0.0-0.1); BASOPHILS % (AUTO) 0.5 %; EOSINOPHILS % (AUTO) 0.2 %; HGB - HEMOGLOBIN 8.2 g/dL (12.0-16.0); LYMPHOCYTES # (AUTO) 0.8 10^3/uL (1.5-3.5); LYMPHOCYTES % (AUTO) 5.2 %; MEAN CORPUSCULAR HEMOGLOBIN 33.1 pg (27.0-31.0); MEAN CORPUSCULAR HGB CONC 32.2 g/dL (32.0-36.0); MEAN CORPUSCULAR VOLUME 102.8 fL (81.0-99.0); MEAN PLATELET VOLUME 9.4 fL (7.9-10.8); MONOCYTES # (AUTO) 0.7 10^3/uL (0.0-1.0); MONOCYTES % (AUTO) 4.1 %; NEUTROPHILS % (AUTO) 85.9 %; PLT - PLATELET COUNT 241 10^3/uL (130-450); RED BLOOD COUNT 2.48 10^6/uL (4.20-5.40); RED CELL DISTRIBUTION WIDTH 13.4 % (12.0-15.0); WHITE BLOOD COUNT 16.3 x10^3/uL (4.8-10.8)
[2020-07-07 06:24] LABS: CALCIUM 7.6 mg/dL (8.5-10.3); CREATININE 0.8 mg/dL (0.4-1.0)
[2020-07-07] MEDS: LEVOTHYROXINE 25 MCG TABLET PO SCH (06:27)
[2020-07-07] MEDS: traZODone 50 MG TABLET PO SCH ×2 (06:27→14:55)
[2020-07-07 06:47] LABS: PLATELET ESTIMATE, MANUAL NORMAL (130-450,000) (NORMAL); PLATELET MORPHOLOGY NORMAL APPEARANCE (NORMAL); RBC MORPHOLOGY (MULTIPLE) 1+ MACROCYTOSIS (NORMAL)
[2020-07-07] MEDS: HYDROcod/ACETAM 5/325 MG TABLET PO PRN (08:14)
[2020-07-07] MEDS: BUDESONIDE 0.5 MG/2 ML NEB INH SCH ×2 (08:59→19:44)
[2020-07-07] MEDS: FORMOTEROL FUMARATE NEB 20 MCG/2 ML INH SCH ×2 (08:59→19:44)
[2020-07-07] MEDS ORDERED: cefTRIAXone 1 GM in SODIUM CHLORIDE 0.9% MINIBAG 100 ML IV SCH (09:00)
--- NOTE | 2020-07-07 12:58 | PROVIDER PROGRESS NOTE ---
Subjective - Prog Note Date Prog Note Date: 07/07/20 Prog Note Time: 13:03 - Subjective Pt reports feeling: Improved Subjective: She is just very, very tired. She denies cough, shortness of breath, wheezing. Denies any belly pain. Appetite poor. Current Medications - Current Medications Current Medications: Active Medications Acetaminophen (Tylenol) 650 mg PO Q4HR PRN PRN Reason: Pain 1 to 4 Last Admin: 07/07/20 00:22 Dose: 650 mg Documented by: Hydrocodone Bitart/Acetaminophen ([place] 5/325) 1 tab PO Q6H PRN PRN Reason: PAIN Last Admin: 07/07/20 08:14 Dose: 1 tab Documented by: Albuterol () 2.5 mg INH RTQ4H PRN PRN Reason: Wheezing Last Admin: 07/07/20 08:58 Dose: 2.5 mg Documented by: Amitriptyline HCl (Elavil) 150 mg PO QPM [facility] Last Admin: 07/06/20 21:24 Dose: 150 mg Documented by: Budesonide (Pulmicort) 0.5 mg INH RTBID RENEE Last Admin: 07/07/20 08:59 Dose: 0.5 mg Documented by: Formoterol Fumarate (Perforomist) 20 mcg INH RTBID RENEE Last Admin: 07/07/20 08:59 Dose: 20 mcg Documented by: Gabapentin (Neurontin) 300 mg PO QPM [facility] Last Admin: 07/06/20 21:24 Dose: 300 mg Documented by: Ceftriaxone Sodium 1 gm/ (Sodium Chloride) 100 mls @ 200 mls/hr IV DAILY [facility] Last Infusion: 07/07/20 09:10 Dose: Infused Documented by: Levothyroxine Sodium (Synthroid) 25 mcg PO QDAC [facility] Last Admin: 07/07/20 06:27 Dose: 25 mcg Documented by: Ondansetron HCl (Zofran Odt) 4 mg TL Q6HR PRN PRN Reason: Nausea / Vomiting Ondansetron HCl (Zofran Inj) 4 mg IVP Q6HR PRN PRN Reason: Nausea / Vomiting Oxycodone HCl (Roxicodone) 5 mg PO Q4HR PRN PRN Reason: Pain 5 to 7 Last Admin: 07/06/20 21:31 Dose: 5 mg Documented by: Potassium Chloride (K-Dur) 40 meq PO ONCE ONE Stop: 07/07/20 13:01 Sodium Chloride (Normal Saline Flush 0.9%) 10 ml IVP PRN PRN PRN Reason: NEEDED PER PROVIDER ORDERS Sodium Chloride (Normal Saline Flush 0.9%) 10 ml IVP 0100,0900,1700 [facility] Last Admin: 07/07/20 08:07 Dose: 10 ml Documented by: Trazodone HCl (Desyrel) 50 mg PO TID [facility] Last Admin: 07/07/20 06:27 Dose: 50 mg Documented by: Amitriptyline HCl 150 mg PO DAILY 12/15/14 Ascorbic Acid [Vitamin C] 1,000 mg PO DAILY 12/15/14 Calcium Citrate 500 mg PO DAILY 12/15/14 Clobetasol Propionate 1 applic TP PRN PRN 12/15/14 Cranberry Fruit Extract [Cranberry] 300 mg PO DAILY 12/15/14 Docusate Sodium [Stool Softener] 100 mg PO DAILY 12/15/14 Estrogens, Conjugated [Premarin] 0.3 mg PO DAILY 12/15/14 Gabapentin 300 mg PO TID 12/15/14 Ginkgo Biloba 120 mg PO DAILY 12/15/14 Ibuprofen 200 mg PO DAILY 12/15/14 Iron 65 mg PO DAILY 12/15/14 Metoclopramide [Reglan] 10 mg PO TID 12/15/14 Montelukast Sodium 10 mg PO DAILY 12/15/14 Multivitamin [Multivitamins] 1 each PO DAILY 12/15/14 Beaver-3 Fatty Acids [Fish Oil] 1,000 mg PO DAILY 12/15/14 Omeprazole 20 mg PO BID 12/15/14 Oxybutynin [Ditropan] 15 mg PO DAILY 12/15/14 Trazodone HCl 100 mg PO TID 12/15/14 methocarbamoL [Methocarbamol] 750 mg PO DAILY PRN 12/15/14 Fluticasone/Salmeterol [Advair 250-50 Diskus] 1 each IH BID 07/24/16 Levothyroxine Sodium 25 mcg PO BID 07/24/16 buPROPion [Wellbutrin Sr] 1 tab PO DAILY 07/24/16 Acetaminophen [Tylenol] 500 mg PO PRN PRN 07/06/20 Albuterol Sulfate [Albuterol Sulfate Hfa] 2 puffs IH Q4H PRN 07/06/20 Furosemide [Lasix] 20 mg PO DAILY 07/06/20 Halobetasol Propionate 1 applic TP PRN PRN 07/06/20 Hydrocodone/Acetaminophen [Hydrocodon-Acetaminophen 5-325] 5 - 325 mg PO Q6H PRN 07/06/20 Mupirocin 2% Oint [Bactroban 2% Oint] 1 applic TP PRN PRN 07/06/20 Neomycin Joel/Bacitrac Zn/Poly [Neosporin Ointment] 1 applic TP PRN PRN 07/06/20 Sucralfate [Carafate] 1 gm PO QID 07/06/20 Objective - Vital Signs/Intake & Output Reviewed Vital Signs: Yes Vital Signs: Vital Signs x48h Temp Pulse Pulse Resp BP Pulse Ox 07/07/20 09:01 102 H 20 07/07/20 08:00 37.6 C H 102 H 21 115/81 H 96 Intake & Output: Intake & Output 07/04/20 07/05/20 07/06/20 07/07/20 23:59 23:59 23:59 23:59 Intake Total 3116.667 440 Balance 3116.667 440 - Objective General Appearance: positive: No acute distress, Alert, Other (Flat affect, withdrawn personality, no longer tearful, laying quietly in bed without any respiratory distress or pain) Eyes Bilateral: positive: PERRL, EOMI ENT: positive: No signs of dehydration Neck: positive: No JVD. negative: Stiff neck Respiratory: positive: Chest non-tender. negative: Wheezes, Rales, Rhonchi Cardiovascular: positive: Regular rate & rhythm. negative: Gallop/S4, Friction rub Abdomen: positive: Non-tender, No organomegaly, Nml bowel sounds, No distention Skin: positive: Warm, Dry, Pallor Extremities: positive: Non-tender, No pedal edema Neurologic/Psychiatric: positive: Oriented x3, CN's nml (2-12), Motor nml - Lab Results Fish Bones: 07/07/20 05:35 07/07/20 05:35 Other Labs: Lab Results x24hrs 07/07/20 07/07/20 Range/Units 05:35 05:35 WBC 16.3 H (4.8-10.8) x10^3/uL RBC 2.48 L (4.20-5.40) 10^6/uL Hgb 8.2 L (12.0-16.0) g/dL Hct 25.5 L (37.0-47.0) % MCV 102.8 H (81.0-99.0) fL MCH 33.1 H (27.0-31.0) pg MCHC 32.2 (32.0-36.0) g/dL RDW 13.4 (12.0-15.0) % Plt Count 241 (130-450) 10^3/uL MPV 9.4 (7.9-10.8) fL Neut # (Auto) 14.0 H (1.5-6.6) 10^3/uL Lymph # (Auto) 0.8 L (1.5-3.5) 10^3/uL Jack # (Auto) 0.7 (0.0-1.0) 10^3/uL Eos # (Auto) 0.0 (0.0-0.7) 10^3/uL Baso # (Auto) 0.1 (0.0-0.1) 10^3/uL Absolute Nucleated RBC 0.00 x10^3/uL Nucleated RBC % 0.0 /100WBC Manual Slide Review Indicated Platelet Estimate NORMAL (130-450,000) (NORMAL) Platelet Morphology NORMAL APPEARANCE (NORMAL) RBC Morph Micro Appear 1+ MACROCYTOSIS (NORMAL) Sodium 133 L (135-145) mmol/L Potassium 3.2 L (3.5-5.0) mmol/L Chloride 102 (101-111) mmol/L Carbon Dioxide 23 (21-32) mmol/L Anion Gap 8.0 (6-13) BUN 25 H (6-20) mg/dL Creatinine 0.8 (0.4-1.0) mg/dL Estimated GFR (MDRD) 70 L (>89) Glucose 114 H (70-100) mg/dL Calcium 7.6 L (8.5-10.3) mg/dL ABX Reporting Has patient been on IV antibiotics over the past 48 hours?: Yes Sepsis Event Note (H) - Evaluation Current Stage of Sepsis: Sepsis Possible source of Sepsis: positive: Genitourinary - Sepsis Criteria Sepsis Criteria: Recorded Temperature greater than 38.3C or Less than 36C, Recorded Heart Rate greater than 90 bpm, Recorded Respiratory Rate greater than 20, Respiratory: Increasing oxygen requirements, WBC count greater than 12,000 or less than 4000, SBP drop more than 40mHg Assessment/Plan - Problem List (1) Sepsis Impression: 07/06:She meets criteria with fever, white cell count, tachycardia. Her low blood pressure is not felt to be shock in that she always runs low at home. Source is felt to be /UTI. Plan: Inpatient status to [facility] initially Frequent vital signs to make sure shock does not develop with transfer to ICU Sepsis order set/protocol 07/07: Still having a fever. At midnight she was 38.4. This morning 37.6. Tachycardia had slowed down overnight. 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 By 9 AM she was 102. White cell count was 18.8 and is come down to 16.3. Blood cultures, all sets are growing E. col So diagnosis of E. coli bacteremia is added. Urine culture is been received. No report yet. Plan: Continue IV antibiotics until afebrile then transition to p.o. especially once identification and sensitivities are present. Continue to monitor blood pressure. So far no need to transfer to ICU. Qualifiers: Sepsis type: sepsis due to Ecoli Sepsis acute organ dysfunction status: without acute organ dysfunction Qualified Code(s): A41.9 - Sepsis, unspecified organism (2) Urinary tract infection Conclusion/Plan: 07/06:Order sets for sepsis protocol use Rocephin. She is received 2 g in the emergency room. Will start 1 g daily. Plan: Adjust antibiotics on the basis of blood or urine cultures. Retroperitoneal ultrasound to make sure the flank pain is not pyelonephritis 07/07: Retroperitoneal ultrasound was not ordered. Will do so today. Cultures are pending. Blood cultures are positive. We will presume that her urine is positive for E. coli as well. Currently on ceftriaxone. Will transition to p.o. when identification and sensitivities return. Qualifiers: Urinary tract infection type: acute cystitis Hematuria presence: without hematuria Qualified Code(s): N30.00 - Acute cystitis without hematuria (3) Hypokalemia Conclusion/Plan: 07/06: Started on supplementation in the emergency room. We will recheck levels again this afternoon to make sure she is adequately supplemented. 9/19: She received both IV riders and p.o. supplementation since yesterday. This morning she is still low at 3.2. Will give 40 medical events p.o. and recheck in a.m. (4) Protein, serum, decreased level Conclusion/Plan: 4 kg weight loss noted in record between last year and this year. We will have nutrition consult assess. (5) HTN (hypertension) Conclusion/Plan: By history. In looking at her medication list she is not on any hypertensive medications. Family states that her blood pressure usually low in the low 100s. Here she is 93-98 systolic after initial presentation. Plan: Reassess after 2 L of normal saline 07/07: Yesterday upon transfer to the [facility] floor she was 93/43. Since then she went up to 110 systolic, this morning she is 115 systolic. Plan: No new orders And no new IV fluids since the 2 L bolus yesterday Qualifiers: Hypertension type: essential hypertension Qualified Code(s): I10 - Essential (primary) hypertension (6) History of asthma Conclusion/Plan: Medication list includes nebulizers, Singulair. We will continue with as needed nebulizers here, daily Singulair. (7) Depression with anxiety Conclusion/Plan: Medication list shows her to be on Wellbutrin and trazodone. We will resume those medications while here. 07/07: Pharmacy has verified her medication list. Nursing was concerned because she is on trazodone 100 mg 3 times a day. Pharmacy verifies that that is correct. (8) macrocytic anemia Conclusion/plan: Anemic as far back as the EMR goes for us which is 2014. In 2014 she was 11.6 g of hemoglobin. 2015 she was 10.6 and 10.8. In 2020 she has been 8.1/8.2. Macrocytic. 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 Alcohol intake varies between 1-2 drinks. She states that she does not drink more than that. Plan: Check TSH Check B12 folate (2) Urinary tract infection Qualifiers: Urinary tract infection type: acute cystitis Hematuria presence: without hematuria Qualified Code(s): N30.00 - Acute cystitis without hematuria (5) HTN (hypertension) Qualifiers: Hypertension type: essential hypertension Qualified Code(s): I10 - Essential (primary) hypertension
[2020-07-07] MEDS ORDERED: POTASSIUM CHLORIDE 20 MEQ TABLET PO ONE (13:00)
--- NOTE | 2020-07-07 15:02 | XRAY Report ---
PROCEDURE: Chest 1 View X-Ray INDICATIONS: sudde on loc and food in mouth TECHNIQUE: One view of the chest was acquired. COMPARISON: 07/06/2020 FINDINGS: Surgical changes and devices: Epigastric clips are seen. Lungs and pleura: Small bilateral pleural effusions are seen. Overlying streaky opacities are seen. Lung volumes are low. No pneumothorax is seen. Mediastinum: Mediastinal contours appear normal. Heart size is normal. Bones and chest wall: No suspicious bony lesions. Overlying soft tissues appear unremarkable. IMPRESSION: Small bilateral pleural effusions, with presumed atelectasis at the lung bases. In this patient with this given history, please also consider developing aspiration pneumonia. Low lung volumes. Epigastric clips are seen. Reviewed by: Shola Bradley MD on 07/07/2020 2:00 PM AKNED Approved by: Shola Bradley MD on 07/07/2020 2:00 PM HOA Station ID: [id number]
[2020-07-07 15:03] LABS: ABG BASE EXCESS 1.6 mmol/L (-2.0-3.0); ABG HCO3 25.3 mmol/L (22.0-26.0); ABG OXYGEN SATURATION 92 % (94-98); ABG PCO2 36 mmHg (34-45); ABG PH 7.47 (7.35-7.45); ABG PO2 73 mmHg (80-100); ABG TCO2 26.3 MMOL/L (21.0-29.0); ALLEN TEST POSITIVE
[2020-07-07 15:04] LABS: ABG FRACTION OF INSPIRED O2 0.21
--- NOTE | 2020-07-07 15:07 | Ultrasound Report ---
PROCEDURE: Retroperitoneal INDICATIONS: e coli uti/ sepsis TECHNIQUE: Real-time scanning was performed of the retroperitoneal organs, with image documentation. COMPARISON: 12/15/2018 FINDINGS: This study is limited by the patient's inability to cooperate with the examination. Kidneys: Kidneys are normal in size. Right kidney measures 11.5 cm long; left kidney measures 11.3 cm long. Right renal cortical thickness is 1.4 cm; left renal cortical thickness is 1.7 cm. No panchito d masses are seen. The previously seen right-sided stone is not seen on the current study. The right kidney demonstrates moderate to prominent hydronephrosis, with the renal pelvis measuring u p to 2.1 cm. Echogenic debris seen within the right renal pelvis. Bladder: The bladder volume measures 44 cc. Only the left ureteral jet can be seen. Miscellaneous: No free abdominal fluid. IMPRESSION: Moderate to prominent right-sided hydronephrosis. The previously seen right-sided stone is not seen a nd there is no right-sided ureteral jet seen. Please consider obstructive uropathy. If clinically appropriate, please consider a follow-up noncontrast CT for further evaluation. Reviewed by: Shola Bradley MD on 07/07/2020 2:06 PM HOA Approved by: Shola Bradley MD on 07/07/2020 2:06 PM HOA Station ID: [id number]
[2020-07-07 18:35] LABS: CALCIUM 8.2 mg/dL (8.5-10.3); CREATININE 0.9 mg/dL (0.4-1.0)
[2020-07-07] MEDS ORDERED: LACTATED RINGERS 1,000 ML IV ONE (19:22)
[2020-07-07] MEDS ORDERED: IOVERSOL 320 100 ML VIAL IVP ONE ×2 (19:32→20:41)
--- NOTE | 2020-07-07 20:55 | CT Report ---
PROCEDURE: Abdomen/Pelvis W INDICATIONS: Sepsis. UTI. Hydronephrosis. CONTRAST: IV CONTRAST: Optiray 320 ml: 100 PO CONTRAST: *NO PO CONTRAST TECHNIQUE: After the administration of intravenous contrast, 5 mm thick sections acquired from the diaphragms to the symphysis. 5 mm thick coronal and sagittal reformats were acquired. For radiation dose reducti on, the following was used: automated exposure control, adjustment of mA and/or kV according to duy ent size. COMPARISON: None. FINDINGS: Image quality: Excellent. ABDOMEN: Lung bases: Small bilateral pleural effusions with overlying atelectasis. Urinary tract: There is an obstructing calculus in the proximal right ureter measuring approximately 12 mm (series 6 image 21 and series 3 image 41). This produces moderate hydronephrosis and hydrourete r proximally. There is the leg and and striated nephrogram on the right indicative of pyelonephritis. There is air within the right ureter proximal to the calculus. No urinary tract calculus, hydronephr osis, or hydroureter on the left. Urinary bladder unremarkable. Solid organs: Liver and spleen are normal in size and enhancement. Gallbladder has been removed. 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 Fatty atrophy of the pancreas. No adrenal nodules. Peritoneum and bowel: There are several scattered loops of small bowel measuring up to 4 cm. No fluid levels. No findings of closed loop obstruction. No significant ascites or free fluid. No pneumoperit oneum. Nodes and vessels: No retroperitoneal or mesenteric adenopathy by size criteria. Aorta and inferior vena cava are normal in size. Miscellaneous: No ventral hernias. Diffuse anasarca. PELVIS: No metatarsal enlarged pelvic or inguinal lymph nodes. Pelvic osseous structures intact. IMPRESSION: Pyelonephritis and with moderate hydroureteronephrosis secondary to an obstructing 12 mm right ureter al calculus. The presence of gas within the ureter proximal to the calculus suggests infection with g as-forming bacteria. Scattered threshold enlarged loops of small bowel without transition point or definite evidence of ob struction. Findings suggestive of volume overload or third spacing of fluid, with diffuse anasarca, small volume pleural effusions, and mild edema of the intra-abdominal fat. Reviewed by: Keyur Mccullough MD on 07/07/2020 8:53 PM PDT Approved by: Keyur Mccullough MD on 07/07/2020 8:53 PM PDT Station ID: [id number]
--- NOTE | 2020-07-07 21:45 | PROVIDER PROGRESS NOTE ---
Case Assistant Note - Case Assistant Note Case Assistant Note: CT of the abdomen and pelvis was ordered this evening as renal ultrasound was concerning for hydronephrosis and possible obstructive uropathy. CT reveals pyelonephritis with moderate hydronephrosis and an obstructing 12 mm right ureteral stone. The patient had also been febrile this evening with a temperature of 39.3 C. I broaden her antibiotics to meropenem IV from ceftriaxone IV. So far her cultures are growing E. coli in the blood and urine but sensitivities are pending. I spoke with urology at [facility] regarding transfer and they felt the patient needed a nephrostomy tube. I spoke with the greenhouse or nursery transplanter at [facility] who stated they did not have interventional radiology available until Thursday. Given the patient is still septic, Thursday is likely too late for intervention. The patient lives in the [facility] and so I spoke with [facility] and they stated they do not have beds this evening but they should have a bed available tomorrow morning and they do have interventional radiology available. I spoke with the patient regarding this information and I mentioned to her that I could call [facility] in [place] for potential transfer but she does not want to go there. Given that at this time, she is hemodynamically stable, transfer is not warranted overnight and so we will keep her hospitalized here on IV antibiotics and we will call [facility] in [place] tomorrow morning again to set up transfer and she will be able to get a nephrostomy tube tomorrow. If the patient declines overnight for hemodynamic standpoint, will call [facility] again or call other facilities to discuss expedited transfer.
[2020-07-07] MEDS: MEROPENEM 1 GM in SODIUM CHLORIDE 0.9% MINIBAG 100 ML IV SCH (21:50)
[2020-07-07] MEDS: GABAPENTIN 300 MG CAPSULE PO SCH (21:50)
[2020-07-07] MEDS: AMITRIPTYLINE 25 MG TABLET PO SCH (21:50)
[2020-07-08] MEDS: HYDROcod/ACETAM 5/325 MG TABLET PO PRN ×2 (01:04→08:56)
[2020-07-08] MEDS: oxyCODONE 5 MG TABLET PO PRN ×2 (02:25→14:22)
[2020-07-08] MEDS: MEROPENEM 1 GM in SODIUM CHLORIDE 0.9% MINIBAG 100 ML IV SCH (05:09)
[2020-07-08 06:13] LABS: BASOPHILS # (AUTO) 0.1 10^3/uL (0.0-0.1); BASOPHILS % (AUTO) 0.4 %; EOSINOPHILS % (AUTO) 0.1 %; HGB - HEMOGLOBIN 7.8 g/dL (12.0-16.0); LYMPHOCYTES # (AUTO) 0.5 10^3/uL (1.5-3.5); LYMPHOCYTES % (AUTO) 2.7 %; MEAN CORPUSCULAR HEMOGLOBIN 33.3 pg (27.0-31.0); MEAN CORPUSCULAR HGB CONC 32.2 g/dL (32.0-36.0); MEAN CORPUSCULAR VOLUME 103.4 fL (81.0-99.0); MEAN PLATELET VOLUME 9.2 fL (7.9-10.8); MONOCYTES % (AUTO) 5.7 %; NEUTROPHILS # (AUTO) 15.3 10^3/uL (1.5-6.6); NEUTROPHILS % (AUTO) 90.3 %; PLT - PLATELET COUNT 177 10^3/uL (130-450); RED BLOOD COUNT 2.34 10^6/uL (4.20-5.40); RED CELL DISTRIBUTION WIDTH 13.2 % (12.0-15.0); WHITE BLOOD COUNT 16.9 x10^3/uL (4.8-10.8)
[2020-07-08 06:25] LABS: CALCIUM 7.9 mg/dL (8.5-10.3); CREATININE 0.7 mg/dL (0.4-1.0)
[2020-07-08] MEDS: LEVOTHYROXINE 25 MCG TABLET PO SCH (06:26)
[2020-07-08 06:45] LABS: THYROID STIMULATING HORMONE 6.06 uIU/mL (0.34-5.60)
[2020-07-08] MEDS: FORMOTEROL FUMARATE NEB 20 MCG/2 ML INH SCH (09:30)
[2020-07-08] MEDS: BUDESONIDE 0.5 MG/2 ML NEB INH SCH (09:30)
[2020-07-08] MEDS ORDERED: cefTRIAXone 1 GM in SODIUM CHLORIDE 0.9% MINIBAG 100 ML IV SCH (11:00)
[2020-07-08] MEDS: SODIUM CHLORIDE FLUSH 0.9% 10 ML SYRINGE IVP SCH (11:01)
--- NOTE | 2020-07-08 11:53 | Discharge Plan ---
Discharge Plan Problem Reviewed?: Yes Disposition: 02 Transfer Acute Care Hosp Condition: Serious No Smoking: If you smoke, Please STOP! Call for help. Follow-up with: ARUNA CLAYTON [Primary Care Provider] -
--- NOTE | 2020-07-08 11:57 | DISCHARGE SUMMARY ---
"Discharge Summary Admit Date: 07/06/20 Discharge Date: 07/08/20 Discharging Provider: Dara Womack MD Primary Care Provider: Parmjit Rai MD/Annie Agustin PAC Code Status: Attempt Resuscitation Condition at Discharge: Serious Discharge Disposition: 02 Transfer Acute Care Hosp Discharge Facility Name: [facility] - DIAGNOSES Discharge Diagnoses with Status of Each Condition: 1. Sepsis with UTI 2. E. coli UTI 3. E. coli bacteremia 4. Obstructive uropathy 5. Nephrolithiasis 6. Hypokalemia 7. Essential hypertension 8. Unspecified depression with anxiety disorder (on amitriptyline 150 mg daily, gabapentin 300 mg 3 times daily, methocarbamol 750 mg daily, trazodone 100 mg p.o. 3 times daily, Wellbutrin 100 mg daily) 9. Macrocytic anemia. 10. Abnormal liver ultrasound November 2018. - HPI History of Present Illness: Female who has reflux disease, anxiety, asthma, and palpitations that presents with leg weakness for several days and this morning having near syncope. She denies any recent fevers, chills, cough, shortness of breath. No chest congestion no URI symptoms. She has had urgency and frequency. She had gotten out of bed and was so lightheaded she fell to the floor. She did not lose consciousness. Her try to get her up but her weakness was so severe that they came to the ER. She usually has low blood pressures in the low 100s over 50s. She cannot pinpoint when it started, but she just does not feel good. She is tearful when she says this. She just feels depressed, hopeless, but denies suicidal intention. She wishes people would just leave her alone. She does not want to leave the house. She has no get up and go. Appetite has gone down a little bit with this as well. She was triaged at 9 AM and brought in by private vehicle. Temperature was 37.7. Heart rate was 107. Blood pressure 147/132. 96% on room air. Complaining of a 9 out of 10 pain over her right arm and right hip where she fell. She was evaluated by Dr. Alvarez. She is an alert oriented female, with no dehydration. No respiratory distress. Mild right flank pain. Trace pitting edema. White cell count is 18.8. Urinalysis has many bacteria and a few squamous cells. INR is 1.4. Potassium is very low at 2.6. BUN mildly elevated at 23 but creatinine stable for her. Liver enzymes are normal. However this patient has a very low protein at 4.5, albumin at 2.1. Calcium is 8.1. Troponin is 10.8. In looking at her weight she was 55 kg in October 2015. 52.4 kg July 2016. 49 kg April 2019. And 48.5 kg today. Chest x-ray has mildly reduced respiratory volume but no infiltrate. She was treated with 2 g of Rocephin in the emergency room, 1 L of fluid. Blood pressure has started to come down and she is 93-95 systolic. Still monitor tachycardic at 101-102. 93% on room air. Dr. Alvarez is asking us to admit her as sepsis from a UTI. She does not feel that she needs a central line or transfer to ICU. - Past Medical History Cardiovascular: reports: Hypertension, Angina (With rule out MA admission in 2014 with negative troponins), Murmur (She was sent for an echocardiogram November 2018. Ejection fraction normal at 55 to 60%. Moderate increase in left atrial volume index. Trace aortic regurgitation. Moderate mitral regurgitation. Evidence of patent foramen ovale versus atrial septal defect with [id number] shunting.), Arrhythmia (Described as palpitations) Respiratory: reports: Asthma Endocrine/Autoimmune: reports: HyPERthyroidism GI: reports: GERD (Attributed to alkaline reflux after Billroth II. Hepatobiliary HIDA scan done March 2018 shows no enterogastric bile reflux. Patent common bile duct.), GI bleed (with Bilroth II), Chronic constipation, Other (While getting an ultrasound for right upper quadrant pain in November 2018, she had a triangular-shaped hyperechoic region near the left lobe of the liver measuring 2.4 x 1.6 x 2.5 cm. Differential diagnosis included focal fatty infiltration, atypical appearance of hemangioma as less likely a subtl) [employer]: reports: Other ([id number]. I child was stillborn at . ) : reports: Chronic bladder infection HEENT: reports: None Psych: reports: Depression, Anxiety Musculoskeletal: reports: Osteoarthritis, Osteoporosis (Borderline with T score -2.0 at the femoral neck, total hip is -1.4. Fracture risk is felt to be increased according to World Health Organization definitions for osteoporosis and osteopenia.), Chronic back pain (Intermittent, and waxing and waning its intensity. MRI of the lumbar spine showed generalized aging changes of anterolisthesis, osteoarthritis, broad-based disc bulging. She had moderate central canal stenosis at L4-5.) Derm: reports: Other (prone to nonspecific rashes) MRSA Hx?: No - CONSULTS | PROCEDURES Procedures: 1. Chest x-ray normal for age, mildly reduced inspiratory volume. 2. Possible aspiration was repeat chest x-ray showing small bilateral pleural effusions. Presumed atelectasis at lung bases. Low lung volumes. Overlying streaky opacities. 3. Retroperitoneal ultrasound with moderate to prominent right-sided hydronephrosis. Previously seen right-sided stone is not seen and there is no right-sided ureteral jets seen. Please consider obstructive uropathy. 4. Abdomen pelvis CT with small bilateral pleural effusions and overlying atelectasis. Obstructing calculus in the proximal right ureter measuring 12 mm. Moderate hydronephrosis and hydroureter proximally. Changes indicative of pyelonephritis. Air within the right ureter. No urinary tract calculus, hydronephrosis or hydroureter on the left. Intrahepatic and extrahepatic biliary ducts dilated compatible with postcholecystectomy reservoir phenomenon. Several scattered loops of small bowel measuring up to 4 cm. No fluid levels. Diffuse anasarca. 5. Blood culture July 06 with all bottles positive for E. coli 6. Urine culture July 06+ for E. coli - HOSPITAL COURSE Hospital Course: The patient was admitted and treated as sepsis with a UTI. Sepsis criteria improved but blood cultures and urine cultures grew out E. coli. Because of flank pain a retroperitoneal ultrasound was done and showed her to have obstruction but no stone. CT KUB confirmed obstructing 12 mm stone on the right side. Hospitalist reached out to [facility] because this patient will need an intervention. Dr. John Haynes accepted the patient on July 08. The other issue noted during her stay was that of multiple medications at high doses for treatment of her depression. We reduced her trazodone while here. Her had not been really aware of the dosing or the medications. He went home and look them up and feels that he may be talking to her primary care provider about reducing some of the doses. She spends most of her time sleeping and nodding off at dinner, cars, etc. Also noted an abnormal hepatic ultrasound with no follow-up ultrasound in the outpatient setting. Since many patients have follow-up care and other facilities beside our facility, the patient may have had an ultrasound somewhere else. Would follow with primary care provider on this issue. The day before discharge the patient was profoundly sleepy, more than she had been on admitting. Repeat labs were done. Essentially unchanged from admission. Troponin high-sensitivity was 32 and mildly elevated from July 06 troponin of 10. EKG was without changes. We do not feel that this troponin is clinically significant of a cardiac event. She has macrocytic anemia and B12 was done and normal if not elevated at 1805. TSH was mildly elevated at 6.06. 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 She states that she drinks 1 glass of wine a day. Suspicion is that she may be drinking more than that. But there is no evidence of alcohol withdrawal during her stay. At discharge temperature is 36.6. Pulse 92. Respirations 20. Blood pressure 137/55. She is 92% on room air. This morning she is still sleepy but more responsive. She knows where she is, why she is here. She says that she is just miserable with diffuse pain. She does not specifically complain of flank pain at this time. Neck is supple not stiff. Lungs have slow, shallow unlabored respiration. Diminished at the bases but no crackles rhonchi wheezing or incr eased respiratory effort. PMI is normally placed with a regular rate and rhythm. The abdomen has hypoactive bowel sounds, nondistended, nontender. Extremities are warm without cyanosis, or edema. Greater than 30 minutes was spent coordinating discharge. Case discussed with Dr. Haynes, patient's . - ALLERGIES Allergies/Adverse Reactions: Allergies Allergy/AdvReac Type Severity Reaction Status Date / Time latex AdvReac Severe Rash Verified 07/06/20 09:14 - MEDICATIONS Home Medications: Ambulatory Orders Medication Instructions Recorded Confirmed Amitriptyline HCl 150 mg PO DAILY 12/15/14 07/06/20 Ascorbic Acid [Vitamin C] 1,000 mg PO DAILY 12/15/14 07/24/16 Calcium Citrate 500 mg PO DAILY 12/15/14 07/06/20 Clobetasol Propionate 1 applic TP PRN PRN 12/15/14 07/06/20 Cranberry Fruit Extract [Cranberry] 300 mg PO DAILY 12/15/14 07/24/16 Docusate Sodium [Stool Softener] 100 mg PO DAILY 12/15/14 07/06/20 Estrogens, Conjugated [Premarin] 0.3 mg PO DAILY 12/15/14 07/24/16 Gabapentin 300 mg PO TID 12/15/14 07/06/20 Ginkgo Biloba 120 mg PO DAILY 12/15/14 07/24/16 Ibuprofen 200 mg PO DAILY 12/15/14 07/06/20 Iron 65 mg PO DAILY 12/15/14 07/24/16 Metoclopramide [Reglan] 10 mg PO TID 12/15/14 07/06/20 Montelukast Sodium 10 mg PO DAILY 12/15/14 07/06/20 Multivitamin [Multivitamins] 1 each PO DAILY 12/15/14 07/06/20 Bingham-3 Fatty Acids [Fish Oil] 1,000 mg PO DAILY 12/15/14 07/06/20 Omeprazole 20 mg PO BID 12/15/14 07/06/20 Oxybutynin [Ditropan] 15 mg PO DAILY 12/15/14 07/06/20 Trazodone HCl 100 mg PO TID 12/15/14 07/06/20 methocarbamoL [Methocarbamol] 750 mg PO DAILY PRN 12/15/14 07/06/20 Fluticasone/Salmeterol [Advair 1 each IH BID 07/24/16 07/06/20 250-50 Diskus] Levothyroxine Sodium 25 mcg PO BID 07/24/16 07/06/20 buPROPion [Wellbutrin Sr] 1 tab PO DAILY 07/24/16 07/06/20 Acetaminophen [Tylenol] 500 mg PO PRN PRN 07/06/20 07/06/20 Albuterol Sulfate [Albuterol 2 puffs IH Q4H PRN 07/06/20 07/06/20 Sulfate Hfa] Furosemide [Lasix] 20 mg PO DAILY 07/06/20 07/06/20 Halobetasol Propionate 1 applic TP PRN PRN 07/06/20 07/06/20 Hydrocodone/Acetaminophen 5 - 325 mg PO Q6H PRN 07/06/20 07/06/20 [Hydrocodon-Acetaminophen 5-325] Mupirocin 2% Oint [Bactroban 2% 1 applic TP PRN PRN 07/06/20 07/06/20 Oint] Neomycin Joel/Bacitrac Zn/Poly 1 applic TP PRN PRN 07/06/20 07/06/20 [Neosporin Ointment] Sucralfate [Carafate] 1 gm PO QID 07/06/20 07/06/20 - LABS Result Diagrams: 07/08/20 06:05 07/08/20 06:05 - SEPSIS Current Stage of Sepsis: Sepsis Possible source of Sepsis: Genitourinary Sepsis Criteria: Recorded Temperature greater than 38.3C or Less than 36C, Recorded Heart Rate greater than 90 bpm, Recorded Respiratory Rate greater than 20, Respiratory: Increasing oxygen requirements, WBC count greater than 12,000 or less than 4000, SBP drop more than 40mHg"
[2020-07-08 14:36] VITALS: BP 126/62
== END 2020-07-08 15:03 | disposition short-term general hospital (02) | DRG 872 ==
LOC: EDUNIT# → ED 08:59 → MS2 11:00
PROVIDERS: ADMIT Specialist; ATTEND Specialist
DX: A41.9 Sepsis, unspecified organism (principal); A41.51 Sepsis due to Escherichia coli [E. coli]; N30.00 Acute cystitis without hematuria; N13.6 Pyonephrosis; N12 Tubulo-interstitial nephritis, not specified as acute or chronic; N20.0 Calculus of kidney; E05.90 Thyrotoxicosis, unspecified without thyrotoxic crisis or storm; I10 Essential (primary) hypertension; F32.9 Major depressive disorder, single episode, unspecified; E87.6 Hypokalemia; F41.8 Other specified anxiety disorders; D53.9 Nutritional anemia, unspecified; R93.2 Abnormal findings on diagnostic imaging of liver and biliary tract; K21.9 Gastro-esophageal reflux disease without esophagitis; J45.909 Unspecified asthma, uncomplicated; N95.2 Postmenopausal atrophic vaginitis; Z86.711 Personal history of pulmonary embolism; Z87.891 Personal history of nicotine dependence; M54.9 Dorsalgia, unspecified; G89.29 Other chronic pain; W18.30XA Fall on same level, unspecified, initial encounter; Y92.013 Bedroom of single-family (private) house as the place of occurrence of the external cause; R53.1 Weakness; R06.00 Dyspnea, unspecified
CPT/HCPCS: 36415; 36600; 71045; 74177; 76770; 80048; 80053; 81001; 81599; 82607; 82803; 83605; 83690; 84443; 84484; 85025; 85610; 87040; 87077; 87086; 87181; 93005; 94640; 96360; 99283; 99285; A9270; J2185; J7120; J7626; Q9967; 81003; 82746; 82747

== ENCOUNTER 2020-07-08 14:52 | Outpatient (CLI) | payer MEDICARE, OTHER | END 2020-07-08 14:53 | disposition short-term general hospital (02) | LOC: EMS 14:52 | PROVIDERS: ATTEND Surgery | DX: N20.0 Calculus of kidney (principal) | CPT/HCPCS: A0425; A0428 ==

== ENCOUNTER 2020-08-23 14:29 | Outpatient (CLI) | payer MEDICARE, OTHER ==
--- NOTE | 2020-08-23 16:13 | Ultrasound Report ---
PROCEDURE: Retroperitoneal INDICATIONS: HISTORY OF NEPHROLITHIASIS TECHNIQUE: Real-time scanning was performed of the retroperitoneal organs, with image documentation. COMPARISON: CT abdomen pelvis 07/07/2020 FINDINGS: Kidneys: Kidneys are normal in size. Right kidney measures 10 point cm long; left kidney measures 1 0.2 cm long. Right renal cortical thickness is 1.2 cm; left renal cortical thickness is 1.2 cm. No solid masses. Severe right hydronephrosis and proximal hydroureter. Areas of increased echogenicity are identified in the lower pole of the right kidney measuring 7 x 4 x 6 mm and 10 x 6 x 11 mm. Bladder: No bladder masses. Prevoid volume measures 2 32 cc. Postvoid residual 3.2 cc. Bilateral uret eral jets are identified. IMPRESSION: 1. Severe right hydronephrosis and hydroureter. Source of obstruction is not identified. However, it could be secondary to further distal migration of previously identified proximal right ureteral calcu iona. As clinically indicated, CT may be obtained for additional evaluation. 2. Previous appearance of right renal pyelonephritis appears resolved. Reviewed by: Dalrene Dunn MD on 08/23/2020 4:11 PM PST Approved by: Darlene Dunn MD on 08/23/2020 4:11 PM PST Station ID: [id number]
== END 2020-08-23 14:30 | disposition home or self-care (01) ==
LOC: DI 14:29
PROVIDERS: ATTEND Urology
DX: N13.30 Unspecified hydronephrosis (principal)
CPT/HCPCS: 76770

== ENCOUNTER 2020-10-04 11:42 | Outpatient (CLI) | payer MEDICARE, OTHER ==
[2020-10-04] MEDS ORDERED: IOVERSOL 320 100 ML VIAL IVP ONE ×2 (12:15→16:50)
--- NOTE | 2020-10-04 14:21 | CT Report ---
PROCEDURE: IVP INDICATIONS: HYDROURETERONEPHROSIS CONTRAST: IV CONTRAST: Optiray 320 ml: 100 PO CONTRAST: *NO PO CONTRAST TECHNIQUE: After the administration of intravenous contrast, 5 mm thick sections acquired from the diaphragms to the symphysis. 5 mm thick coronal and sagittal reformats were acquired. For radiation dose reducti on, the following was used: automated exposure control, adjustment of mA and/or kV according to duy ent size. COMPARISON: Prior CT abdomen/pelvis 07/07/2020.. FINDINGS: Image quality: Excellent. Lung bases: Lung bases are clear. Heart size is normal. Urinary system: Both kidneys are normal in size but there is a small degree of asymmetric enhancemen t, reduced on the right to a mild degree. There is persistent hydronephrosis on the right, in this pa tient with recent prior CT scanning 07/07/2020 documenting a 1 cm impacted proximal ureteral stone jus t below the renal pelvis on the right, with prominent hypoechoic enhancement of the lower third of th e right kidney, potentially representing pyelonephritis above the obstructed. Contrast-filled renal calyces are normal in morphology on the left but no contrast is excreted into the right collecting sy stem. Contrast filled portions of the left ureter is normal in caliber. Along the course of the rig ht ureter, which is not opacified, no dilatation is seen. Bladder wall thickness is normal. Note is made of several punctate calculi within the posterior collecting system of the right kidney, potentia lly a manifestation of lithotripsy and retrograde migration of the small 2 mm fragments. Solid organs: Liver and spleen are normal in size and enhancement. Gallbladder has been previously resected and again noted is central as was present on prior CT scanning. Pancreas enhances normally. No adrenal nodules. Peritoneum and bowel: Bowel loops demonstrate normal wall thickness and caliber. No free fluid or a ir. Nodes and vessels: No retroperitoneal or mesenteric adenopathy by size criteria. Aorta and inferior vena cava are normal in size. Abdominal wall: No ventral hernias. Pelvis: No pathologic free pelvic fluid. No inguinal hernias or adenopathy. Bones: No suspicious bony lesions. No vertebral body compression fractures. IMPRESSION: 1. Right-sided hydronephrosis persists despite what appears to have been either lithotripsy or other method of stone extraction at the proximal right ureter where a 1 cm ovoid stone had been impacted wi th associated injury to the renal cortex of the right kidney 07/07/2020. The etiology of persistent hy dronephrosis given absence of that original stone is uncertain, and is not associated with a definite mass, and could represent sequela of scarring related to the stone presence. Urology consultation is recommended, retrograde stent placement may be warranted given this persistence and the current abse nce of excretion of intravenous contrast through the right renal collecting system.. 2. Prior cholecystectomy. There has been a somewhat prominent degree of residual persistent biliary d istention both within the liver parenchyma centrally and within the common duct. The current common h epatic duct caliber is 1.6 cm. Correlation with liver function tests may be warranted to confirm abse nce of significant biliary hypertension.. Reviewed by: Vu Trujillo MD on 10/04/2020 2:20 PM PST Approved by: Vu Trujillo MD on 10/04/2020 2:20 PM PST Station ID: [id number]
== END 2020-10-04 11:43 | disposition home or self-care (01) ==
LOC: DI 11:42
PROVIDERS: ATTEND Urology
DX: N13.30 Unspecified hydronephrosis (principal); Z87.442 Personal history of urinary calculi; Z87.440 Personal history of urinary (tract) infections; K83.8 Other specified diseases of biliary tract; Z90.49 Acquired absence of other specified parts of digestive tract
CPT/HCPCS: 74178; Q9967

== ENCOUNTER 2021-05-09 15:10 | Outpatient (CLI) | payer MEDICARE, OTHER ==
--- NOTE | 2021-05-09 17:05 | Ultrasound Report ---
PROCEDURE: Retroperitoneal INDICATIONS: HYDRONEPHROSIS TECHNIQUE: Real-time scanning was performed of the retroperitoneal organs, with image documentation. COMPARISON: Prior CT IVP dated 10/04/2020. FINDINGS: Kidneys: Kidneys are normal in size. Right kidney measures 9.1 cm long; left kidney measures 10.5 c m long. Right renal cortical thickness is 1.4 cm; left renal cortical thickness is 1.4 cm. Right ur eteral stent present incompletely visualized. Moderate right hydronephrosis which appear similar to p rior examination. 10 mm right inferior pole calcification. Bladder: Prevoid volume estimated at 58 cc no post void residual. Left ureteral stent present. IMPRESSION: 1. Right ureteral stent present and there is moderate right hydronephrosis which is similar to prior CT scan. 2. 1.0 cm right inferior pole renal calcification. Reviewed by: CARLOS MANUEL Crenshaw on 05/09/2021 5:04 PM PDT Approved by: Darlene Dunn MD on 05/09/2021 5:04 PM PDT Station ID: [id number]
== END 2021-05-09 15:11 | disposition home or self-care (01) ==
LOC: DI 15:10
PROVIDERS: ATTEND Urology
DX: N13.30 Unspecified hydronephrosis (principal); N28.89 Other specified disorders of kidney and ureter; Z96.0 Presence of urogenital implants

== ENCOUNTER 2021-06-11 12:38 | Emergency (ER) | payer MEDICARE, OTHER ==
--- NOTE | 2021-06-11 13:54 | ED Physician Documentation ---
PD HPI ABD PAIN - Stated complaint Stated Complaint: SHAKING/CANT WALK - Chief complaint Chief Complaint: Abd Pain - History obtained from History obtained from: Patient - History of Present Illness Timing - onset: How many days ago (2) Timing - duration: Days (2) Timing - details: Gradual onset, Still present (worsened significantly into today, with nausea, shakiness, general weakness to point of unable to walk, right lower to flank abd pain. No fevers.) Quality: Cramping, Aching, Pain Location: RLQ Radiation: Right flank. No: Chest, Lower back Associated symptoms: Nausea, Dysuria, Loss of appetite. No: Fever, Vomiting, Diarrhea, Constipation, Hematuria, Near syncope / syncope Similar symptoms before: Has not had sx before Recently seen: Clinic (she states had right kidney stone that needed urologic stenting and then stone removed, per patient, several months ago, and has stent still in place. Has planned appt with Dr. Buckner in 2 days in office for stent removal. Having the pain and some dysuria now.), Emergency Dept Review of Systems Constitutional: reports: Myalgias. denies: Fever, Chills Nose: denies: Rhinorrhea / runny nose, Congestion Throat: denies: Sore throat Respiratory: denies: Cough GI: reports: Abdominal Pain, Nausea. denies: Vomiting, Constipation, Diarrhea : reports: Dysuria. denies: Hematuria Skin: denies: Rash, Lesions Musculoskeletal: reports: Back pain. denies: Neck pain PD PAST MEDICAL HISTORY - Past Medical History Cardiovascular: Hypertension Respiratory: Asthma Endocrine/Autoimmune: HyPERthyroidism GI: None BIOLOGICAL TECHNICAL OFFICER: Other ([id number]. I child was stillborn at . ) : None HEENT: None Psych: Depression Musculoskeletal: Osteoarthritis Derm: None - Past Surgical History Past Surgical History: Yes General: Cholecystectomy, Appendectomy, Bowel surgery Ortho: Rotator cuff repair ( 12/2014 but left shoulder also w tear.) /BIOLOGICAL TECHNICAL OFFICER: Hysterectomy HEENT: Cataracts (surgery 10/2015) - Present Medications Home Medications: Ambulatory Orders Medication Instructions Recorded Confirmed Amitriptyline HCl 150 mg PO DAILY 12/15/14 07/06/20 Ascorbic Acid [Vitamin C] 1,000 mg PO DAILY 12/15/14 07/24/16 Calcium Citrate 500 mg PO DAILY 12/15/14 07/06/20 Clobetasol Propionate 1 applic TP PRN PRN 12/15/14 07/06/20 Cranberry Fruit Extract [Cranberry] 300 mg PO DAILY 12/15/14 07/24/16 Docusate Sodium [Stool Softener] 100 mg PO DAILY 12/15/14 07/06/20 Estrogens, Conjugated [Premarin] 0.3 mg PO DAILY 12/15/14 07/24/16 Gabapentin 300 mg PO TID 12/15/14 07/06/20 Ginkgo Biloba 120 mg PO DAILY 12/15/14 07/24/16 Ibuprofen 200 mg PO DAILY 12/15/14 07/06/20 Iron 65 mg PO DAILY 12/15/14 07/24/16 Metoclopramide [Reglan] 10 mg PO TID 12/15/14 07/06/20 Montelukast Sodium 10 mg PO DAILY 12/15/14 07/06/20 Multivitamin [Multivitamins] 1 each PO DAILY 12/15/14 07/06/20 [place]-3 Fatty Acids [Fish Oil] 1,000 mg PO DAILY 12/15/14 07/06/20 Omeprazole 20 mg PO BID 12/15/14 07/06/20 Oxybutynin [Ditropan] 15 mg PO DAILY 12/15/14 07/06/20 Trazodone HCl 100 mg PO TID 12/15/14 07/06/20 methocarbamoL [Methocarbamol] 750 mg PO DAILY PRN 12/15/14 07/06/20 Fluticasone/Salmeterol [Advair 1 each IH BID 07/24/16 07/06/20 250-50 Diskus] Levothyroxine Sodium 25 mcg PO BID 07/24/16 07/06/20 buPROPion [Wellbutrin Sr] 1 tab PO DAILY 07/24/16 07/06/20 Acetaminophen [Tylenol] 500 mg PO PRN PRN 07/06/20 07/06/20 Albuterol Sulfate [Albuterol 2 puffs IH Q4H PRN 07/06/20 07/06/20 Sulfate Hfa] Furosemide [Lasix] 20 mg PO DAILY 07/06/20 07/06/20 Halobetasol Propionate 1 applic TP PRN PRN 07/06/20 07/06/20 Hydrocodone/Acetaminophen 5 - 325 mg PO Q6H PRN 07/06/20 07/06/20 [Hydrocodon-Acetaminophen 5-325] Mupirocin 2% Oint [Bactroban 2% 1 applic TP PRN PRN 07/06/20 07/06/20 Oint] Neomycin Joel/Bacitrac Zn/Poly 1 applic TP PRN PRN 07/06/20 07/06/20 [Neosporin Ointment] Sucralfate [Carafate] 1 gm PO QID 07/06/20 07/06/20 cephALEXin [Keflex] 500 mg PO TID #20 cap 06/11/21 - Allergies Allergies/Adverse Reactions: Allergies Allergy/AdvReac Type Severity Reaction Status Date / Time latex AdvReac Severe Rash Verified 06/11/21 12:42 - Social History Does the pt smoke?: No Smoking Status: Never smoker Does the pt drink ETOH?: Yes Does the pt have substance abuse?: No - Immunizations Immunizations are current?: Yes - POLST Patient has POLST: No POLST Status: Full Code (She and her have talked about this. He is a DO NOT RESUSCITATE and never wants to be disabled and leave the house. Although she is talked about this with him, she has never really come to a conclusion. As such, by default, she will be full code until she decides.) PD ED PE NORMAL - Vitals Vital signs reviewed: Yes - General General: Alert and oriented X 3, Well developed/nourished, Other (appears shaky in general, and having weakness for lifting legs off bed. ) - Cardiac Cardiac: RRR, No murmur - Respiratory Respiratory: Clear bilaterally - Abdomen Abdomen: Normal bowel sounds, Soft, Non tender - Female Female : Deferred - Rectal Rectal: Deferred - Back Back: No CVA TTP - Derm Derm: Normal color, Warm and dry - Extremities Extremities: No tenderness to palpate, Normal ROM s pain, No edema, No calf tenderness / cord - Neuro Neuro: Alert and oriented X 3, No sensory deficit, Normal speech, Other (general weakness arms and legs, legs more so. ) Results - Vitals Vitals: Vital Signs - 24 hr 06/11/21 06/11/21 06/11/21 12:42 14:51 16:00 Temperature 37.5 C Heart Rate 93 86 83 Respiratory 16 16 15 Rate Blood Pressure 118/55 L 140/111 H 107/43 L O2 Saturation 97 96 95 06/11/21 17:52 Temperature Heart Rate 81 Respiratory 16 Rate Blood Pressure 103/45 L O2 Saturation 96 Oxygen O2 Source Room air - Labs Labs: Laboratory Tests 06/11/21 06/11/21 06/11/21 14:00 14:21 14:21 WBC 21.3 H RBC 3.38 L Hgb 10.0 L Hct 31.6 L MCV 93.5 MCH 29.6 MCHC 31.6 L RDW 13.4 Plt Count 329 MPV 8.8 Neut # (Auto) 18.9 H Lymph # (Auto) 0.7 L [place] # (Auto) 1.5 H Eos # (Auto) 0.0 Baso # (Auto) 0.1 Absolute Nucleated RBC 0.00 Nucleated RBC % 0.0 RBC Morph Micro Appear 1+ ANISOCYTOSIS Sodium 135 Potassium 3.0 L Chloride 97 L Carbon Dioxide 24 Anion Gap 14.0 H BUN 22 H Creatinine 1.1 H Estimated GFR (MDRD) 48 L Glucose 119 H Lactic Acid Calcium 9.2 Magnesium 1.6 L Total Bilirubin 0.7 AST 13 ALT < 10 L Alkaline Phosphatase 94 Total Protein 7.5 Albumin 3.2 Globulin 4.3 H Albumin/Globulin Ratio 0.7 L Lipase 19 L Urine Color YELLOW Urine Clarity HAZY Urine pH 6.0 Ur Specific [place] 1.010 Urine Protein 30 H Urine Glucose (UA) NEGATIVE Urine Ketones NEGATIVE Urine Occult Blood SMALL H Urine Nitrite NEGATIVE Urine Bilirubin NEGATIVE Urine Urobilinogen 0.2 (NORMAL) Ur Leukocyte Esterase LARGE H Urine RBC 0-5 Urine WBC >25 H Urine WBC Clumps PRESENT Ur Squamous Epith Cells NONE SEEN Urine Bacteria Many H Ur Microscopic Review INDICATED Urine Culture Comments INDICATED 06/11/21 15:11 WBC RBC Hgb Hct MCV MCH MCHC RDW Plt Count MPV Neut # (Auto) Lymph # (Auto) [place] # (Auto) Eos # (Auto) Baso # (Auto) Absolute Nucleated RBC Nucleated RBC % RBC Morph Micro Appear Sodium Potassium Chloride Carbon Dioxide Anion Gap BUN Creatinine Estimated GFR (MDRD) Glucose Lactic Acid 1.6 Calcium Magnesium Total Bilirubin AST ALT Alkaline Phosphatase Total Protein Albumin Globulin Albumin/Globulin Ratio Lipase Urine Color Urine Clarity Urine pH Ur Specific [place] Urine Protein Urine Glucose (UA) Urine Ketones Urine Occult Blood Urine Nitrite Urine Bilirubin Urine Urobilinogen Ur Leukocyte Esterase Urine RBC Urine WBC Urine WBC Clumps Ur Squamous Epith Cells Urine Bacteria Ur Microscopic Review Urine Culture Comments - Rads (name of study) abd/pelvic CT Radiology: Prelim report reviewed (no stones. ureteral stent is in place. Some hydroureter and nephrosis above it. No diverticulitis. ), See rad report PD MEDICAL DECISION MAKING - ED course Complexity details: reviewed results, re-evaluated patient (she ambulated fairly well to bathroom on her own (mild shufling of feet). Her general weakness seems improved. ), d/w patient, d/w independent crop consultant (inserter promotional item urology Dr Meng, who said the stent is not a problem in the setting of UTI as not occluding flow. Rx with antibiotics and have pt see Dr. Buckner in 2 days as planned. ) Departure - Departure Disposition: 01 Home, Self Care Clinical Impression: General weakness, S/P ureteral stent placement UTI (urinary tract infection) Qualifiers: Urinary tract infection type: site unspecified Hematuria presence: without hematuria Qualified Code(s): N39.0 - Urinary tract infection, site not specified Leukocytosis Qualifiers: Leukocytosis type: unspecified Qualified Code(s): D72.829 - Elevated white blood cell count, unspecified Condition: Stable Record reviewed to determine appropriate education?: Yes Instructions: ED Kidney Infec Female Follow-Up: Levon Kirby DO [Primary Care Provider] - Carine Buckner MD [Provider Admit Priv/Credential] - Prescriptions: cephALEXin [Keflex] 500 mg PO TID #20 cap Comments: Your symptoms seem likely related to a urinary tract infection. The ER ureteral stent is still in place. I talked with the on-call urologist in he thought it was appropriate to just treat for the urinary tract infection. Since there are no stones to block the way or such, the stent does not need to be removed right now but just treat the urinary tract infection. Stay well-hydrated. Tylenol if needed for fevers or pains. Cephalexin antibiotic as directed. Follow-up with Dr. Buckner as planned. Return to the ER sooner if worsening general symptoms, fever, vomiting, worse pain etc. Discharge Date/Time: 06/11/21 17:53
[2021-06-11] MEDS ORDERED: SODIUM CHLORIDE 0.9% 1,000 ML IV STA (14:20)
[2021-06-11] MEDS ORDERED: ONDANSETRON 4 MG/2 ML VIAL IVP STA (14:20)
[2021-06-11] MEDS ORDERED: KETOROLAC 15 MG/ML VIAL IVP STA (14:21)
[2021-06-11 14:29] LABS: BASOPHILS # (AUTO) 0.1 10^3/uL (0.0-0.1); BASOPHILS % (AUTO) 0.3 %; HCT - HEMATOCRIT 31.6 % (37.0-47.0); LYMPHOCYTES # (AUTO) 0.7 10^3/uL (1.5-3.5); LYMPHOCYTES % (AUTO) 3.4 %; MEAN CORPUSCULAR HEMOGLOBIN 29.6 pg (27.0-31.0); MEAN CORPUSCULAR HGB CONC 31.6 g/dL (32.0-36.0); MEAN CORPUSCULAR VOLUME 93.5 fL (81.0-99.0); MEAN PLATELET VOLUME 8.8 fL (7.9-10.8); MONOCYTES # (AUTO) 1.5 10^3/uL (0.0-1.0); MONOCYTES % (AUTO) 6.8 %; NEUTROPHILS # (AUTO) 18.9 10^3/uL (1.5-6.6); NEUTROPHILS % (AUTO) 89.1 %; PLT - PLATELET COUNT 329 10^3/uL (130-450); RED BLOOD COUNT 3.38 10^6/uL (4.20-5.40); RED CELL DISTRIBUTION WIDTH 13.4 % (12.0-15.0); WHITE BLOOD COUNT 21.3 x10^3/uL (4.8-10.8)
[2021-06-11 14:48] LABS: RBC MORPHOLOGY (MULTIPLE) 1+ ANISOCYTOSIS (NORMAL)
[2021-06-11 14:52] LABS: ALBUMIN 3.2 g/dL (3.2-5.5); ALBUMIN/GLOBULIN RATIO 0.7 (1.0-2.2); ALKALINE PHOSPHATASE 94 IU/L (42-121); ALT ALANINE AMINOTRANSFERASE < 10 IU/L (10-60); AST ASPARTATE AMINOTRANSFERASE 13 IU/L (10-42); BILIRUBIN,TOTAL 0.7 mg/dL (0.2-1.0); BUN - BLOOD UREA NITROGEN 22 mg/dL (6-20); CALCIUM 9.2 mg/dL (8.5-10.3); CARBON DIOXIDE - CO2 24 mmol/L (21-32); CHLORIDE 97 mmol/L (101-111); CREATININE 1.1 mg/dL (0.4-1.0); GFR - MDRD 48 (>89); GLUCOSE 119 mg/dL (70-100); LIPASE 19 U/L (22-51); MAGNESIUM 1.6 mg/dL (1.7-2.8); SODIUM 135 mmol/L (135-145); TOTAL PROTEIN 7.5 g/dL (6.7-8.2)
[2021-06-11 15:07] LABS: BILIRUBIN,URINE NEGATIVE (NEGATIVE); GLUCOSE, URINE (UA) NEGATIVE (NEGATIVE); KETONES,URINE (UA) NEGATIVE (NEGATIVE); LEUKOCYTE ESTERASE, URINE LARGE (NEGATIVE); NITRITE,URINE NEGATIVE (NEGATIVE); OCCULT BLOOD,URINE SMALL (NEGATIVE); PROTEIN,URINE 30 mg/dL (NEGATIVE); UROBILINOGEN,URINE 0.2 (NORMAL) E.U./dL (NORMAL)
[2021-06-11 15:23] LABS: CLARITY,URINE HAZY (CLEAR); RBC,URINE 0-5 /HPF (0-5); WBC CLUMPS,URINE PRESENT; WBC,URINE >25 /HPF (0-5)
[2021-06-11 15:24] LABS: BACTERIA,URINE Many /HPF (None Seen); SQUAMOUS EPITHELIAL CELL,UR NONE SEEN (<= Few)
[2021-06-11] MEDS ORDERED: cefTRIAXone 1 GM VIAL IVP STA (15:27)
[2021-06-11] MEDS ORDERED: IOPAMIDOL-300 50 ML VIAL ONE (15:27)
[2021-06-11] MEDS ORDERED: IOPAMIDOL-300 50 ML VIAL IVP ONE (16:06)
--- NOTE | 2021-06-11 16:32 | CT Report ---
PROCEDURE: Abdomen/Pelvis W INDICATIONS: right lower abd pain for 2 days CONTRAST: IV CONTRAST: Isovue 300 ml: 100 PO CONTRAST: *NO PO CONTRAST TECHNIQUE: After the administration of intravenous contrast, 5 mm thick sections acquired from the diaphragms to the symphysis. 5 mm thick coronal and sagittal reformats were acquired. For radiation dose reducti on, the following was used: automated exposure control, adjustment of mA and/or kV according to duy ent size. COMPARISON: July 07, 2020 FINDINGS: Image quality: Excellent. ABDOMEN: Lung bases: Small bilateral pleural effusions noted, greater on the right. Surgical clips noted adjac ent to the distal esophagus within the esophageal hiatus. Solid organs: Liver and spleen are normal in size and enhancement. Gallbladder surgically absent, a nd there is mild intrahepatic biliary ductal dilatation, similar to the prior exam. Pancreas enhance s normally. No adrenal nodules. There is a right ureteral double-J stent in good position with a persistent moderate right-sided hydr onephrosis. Nonobstructing 5 mm calculus noted in the lower pole of the right kidney. Peritoneum and bowel: Bowel loops demonstrate normal wall thickness and caliber. No free fluid or a ir. Moderate fecal debris present throughout the colon. Although the appendix is not separately visu alized, is no pericecal inflammation to suggest appendicitis. Nodes and vessels: No retroperitoneal or mesenteric adenopathy by size criteria. Aorta and inferior vena cava are normal in size. Atherosclerotic vascular calcification noted. Miscellaneous: No ventral hernias. PELVIS: Genitourinary: Bladder wall thickness is normal. Miscellaneous: No inguinal hernias or adenopathy. Bones: No suspicious bony lesions. No vertebral body compression fractures. Multilevel degenerativ e disc disease and arthropathy results in grade 2 anterior spinal listhesis at L5-S1 IMPRESSION: 1. Right double-J ureteral stent and persistent moderate right-sided hydronephrosis suggesting stent malfunction. 2. Nonobstructing 5 mm right renal calculus, lower pole. 3. Cholecystectomy and prominent intrahepatic biliary ducts, similar to prior Reviewed by: Yakov Hirsch MD on 06/11/2021 3:30 PM [facility]DT Approved by: Yakov Hirsch MD on 06/11/2021 3:30 PM AKDT Station ID: [id number]
[2021-06-11 17:53] VITALS: BP 103/45
== END 2021-06-11 17:53 | disposition home or self-care (01) ==
LOC: ED 12:38
DX: N39.0 Urinary tract infection, site not specified (principal); D72.829 Elevated white blood cell count, unspecified; N20.0 Calculus of kidney; I10 Essential (primary) hypertension
CPT/HCPCS: 36415; 74177; 80053; 81001; 83605; 83690; 83735; 85025; 87086; 96361; 96374; 96375; 99284; Q9967; 81003; 87077; 87181

== ENCOUNTER 2021-06-13 00:13 | Outpatient (CLI) | payer MEDICARE, OTHER | END 2021-06-13 21:59 | disposition critical access hospital (66) | LOC: EMS 00:13 | DX: R53.1 Weakness (principal); R41.0 Disorientation, unspecified; R50.9 Fever, unspecified | CPT/HCPCS: A0425; A0429 ==

== ENCOUNTER 2021-06-13 00:32 | Inpatient (IN) | payer MEDICARE, OTHER ==
[2021-06-13] MEDS ORDERED: cefTRIAXone 1 GM in SODIUM CHLORIDE 0.9% MINIBAG 100 ML IV STA (00:41)
[2021-06-13] MEDS ORDERED: SODIUM CHLORIDE 0.9% 1,000 ML IV STA ×2 (00:43→02:24)
--- NOTE | 2021-06-13 00:47 | ED Physician Documentation ---
PD HPI ALTERED MENTAL STATUS - Stated complaint Stated Complaint: WEAKNESS, CONFUSION - Chief complaint Chief Complaint: Neuro - History obtained from History obtained from: Patient, Family, EMS - History of Present Illness Timing - onset: Today Timing - duration: Hours Timing - details: Gradual onset, Still present Quality / character: Less responsive, Confused Associated symptoms: Fever, Headache, Urinary sx, General weakness Contributing factors: Recent illness Basline status: Alert and oriented X 3, Ambulatory, Independent Similar symptoms before: Diagnosis (UTI) Recently seen: Emergency Dept - Additional information Additional information: 76-year-old female who has had a stent in the right ureter since June 2020 has developed a urinary tract infection she was seen in the emergency department yesterday with a leukocytosis and urinary tract infection was administered a gram of Rocephin and placed on Keflex. Urology was consulted and they have recommended the patient follow-up as planned to have her stent removed tomorrow. The patient has developed worsening symptoms has become weak and withdrawn. She has a history of a Billroth II and significant anemia that has been present for extended period of time. She has a history of significant depression as well. The patient did have a fall yesterday out of her wheelchair when she was being discharged from the emergency department and struck the back of her head on the left side. She has a bit of pain where this occurred. Medics reported the patient was on Eliquis and we are unable to confirm that. We did not find that in her chart in any fashion. Review of Systems Constitutional: reports: Fever, Myalgias, Fatigue, Sweats Eyes: denies: Decreased vision Ears: denies: Ear pain Nose: denies: Rhinorrhea / runny nose, Congestion Throat: denies: Sore throat Cardiac: denies: Chest pain / pressure, Palpitations Respiratory: denies: Dyspnea, Cough GI: reports: Nausea : reports: Other (not able to get the patient to endorse urinary symptoms). denies: Dysuria, Frequency Skin: denies: Rash Musculoskeletal: denies: Neck pain, Back pain, Extremity pain Neurologic: reports: Generalized weakness, Confused, Altered mental status. 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 I child was stillborn at . ) : None HEENT: None Psych: Depression Musculoskeletal: Osteoarthritis Derm: None - Past Surgical History Past Surgical History: Yes General: Cholecystectomy, Appendectomy, Bowel surgery Ortho: Rotator cuff repair ( 12/2014 but left shoulder also w tear.) /CRM CAMPAIGN MANAGER: Hysterectomy HEENT: Cataracts (surgery 10/2015) - Present Medications Home Medications: Ambulatory Orders Medication Instructions Recorded Confirmed Amitriptyline HCl 150 mg PO DAILY 12/15/14 07/06/20 Ascorbic Acid [Vitamin C] 1,000 mg PO DAILY 12/15/14 07/24/16 Calcium Citrate 500 mg PO DAILY 12/15/14 07/06/20 Clobetasol Propionate 1 applic TP PRN PRN 12/15/14 07/06/20 Cranberry Fruit Extract [Cranberry] 300 mg PO DAILY 12/15/14 07/24/16 Docusate Sodium [Stool Softener] 100 mg PO DAILY 12/15/14 07/06/20 Estrogens, Conjugated [Premarin] 0.3 mg PO DAILY 12/15/14 07/24/16 Gabapentin 300 mg PO TID 12/15/14 07/06/20 Ginkgo Biloba 120 mg PO DAILY 12/15/14 07/24/16 Ibuprofen 200 mg PO DAILY 12/15/14 07/06/20 Iron 65 mg PO DAILY 12/15/14 07/24/16 Metoclopramide [Reglan] 10 mg PO TID 12/15/14 07/06/20 Montelukast Sodium 10 mg PO DAILY 12/15/14 07/06/20 Multivitamin [Multivitamins] 1 each PO DAILY 12/15/14 07/06/20 [place]-3 Fatty Acids [Fish Oil] 1,000 mg PO DAILY 12/15/14 07/06/20 Omeprazole 20 mg PO BID 12/15/14 07/06/20 Oxybutynin [Ditropan] 15 mg PO DAILY 12/15/14 07/06/20 Trazodone HCl 100 mg PO TID 12/15/14 07/06/20 methocarbamoL [Methocarbamol] 750 mg PO DAILY PRN 12/15/14 07/06/20 Fluticasone/Salmeterol [Advair 1 each IH BID 07/24/16 07/06/20 250-50 Diskus] Levothyroxine Sodium 25 mcg PO BID 07/24/16 07/06/20 buPROPion [Wellbutrin Sr] 1 tab PO DAILY 07/24/16 07/06/20 Acetaminophen [Tylenol] 500 mg PO PRN PRN 07/06/20 07/06/20 Albuterol Sulfate [Albuterol 2 puffs IH Q4H PRN 07/06/20 07/06/20 Sulfate Hfa] Furosemide [Lasix] 20 mg PO DAILY 07/06/20 07/06/20 Halobetasol Propionate 1 applic TP PRN PRN 07/06/20 07/06/20 Hydrocodone/Acetaminophen 5 - 325 mg PO Q6H PRN 07/06/20 07/06/20 [Hydrocodon-Acetaminophen 5-325] Mupirocin 2% Oint [Bactroban 2% 1 applic TP PRN PRN 07/06/20 07/06/20 Oint] Neomycin Joel/Bacitrac Zn/Poly 1 applic TP PRN PRN 07/06/20 07/06/20 [Neosporin Ointment] Sucralfate [Carafate] 1 gm PO QID 07/06/20 07/06/20 cephALEXin [Keflex] 500 mg PO TID #20 cap 06/11/21 - Allergies Allergies/Adverse Reactions: Allergies Allergy/AdvReac Type Severity Reaction Status Date / Time latex AdvReac Severe Rash Verified 06/13/21 00:38 - Social History Does the pt smoke?: No Smoking Status: Never smoker Does the pt drink ETOH?: Yes Does the pt have substance abuse?: No - Immunizations Immunizations are current?: Yes - POLST Patient has POLST: No POLST Status: Full Code (She and her have talked about this. He is a DO NOT RESUSCITATE and never wants to be disabled and leave the house. Although she is talked about this with him, she has never really come to a conclusion. As such, by default, she will be full code until she decides.) PD ED PE NORMAL - Vitals Vital signs reviewed: Yes (wide pulse pressure) - General General: Well developed/nourished, Other (prefers eyes closed difficult to arouse with brief appropriate answers. ) - HEENT HEENT: PERRL, EOMI, Other (tenderness to the left occiput) - Neck Neck: Supple, no meningeal sign, No bony TTP - Cardiac Cardiac: RRR, Other (2/6 holosystolic murmer at LSB) - Respiratory Respiratory: No respiratory distress, Clear bilaterally - Abdomen Abdomen: Normal bowel sounds, Soft, Non tender, Non distended, No organomegaly - Back Back: No CVA TTP, No spinal TTP - Derm Derm: Normal color, Warm and dry, No rash - Extremities Extremities: No deformity, No edema - Neuro Neuro: professor of biblical studies 2-12 intact, No motor deficit, No sensory deficit, Other (speech is quite) Eye Opening: To Voice Motor: Obeys Commands Verbal: Confused GCS Score: 13 - Psych Psych: Other (mood is withdrawn and the affect is flat) Results - Vitals Vitals: Vital Signs - 24 hr 06/13/21 06/13/21 06/13/21 00:38 00:42 01:27 Temperature 37.1 C 37.1 C Heart Rate 81 81 77 Respiratory 24 24 21 Rate Blood Pressure 115/50 L 115/50 L 107/48 L O2 Saturation 94 94 99 06/13/21 06/13/21 06/13/21 01:30 02:04 02:41 Temperature 37.1 C Heart Rate 77 78 76 Respiratory 21 23 21 Rate Blood Pressure 109/50 L 111/50 L 121/52 L O2 Saturation 99 98 99 06/13/21 06/13/21 03:03 03:44 Temperature Heart Rate 75 74 Respiratory 24 23 Rate Blood Pressure 105/51 L 106/51 L O2 Saturation 99 99 Oxygen O2 Source Nasal cannula - Labs Labs: Laboratory Tests 06/13/21 06/13/21 06/13/21 01:28 01:28 01:28 WBC 13.7 H RBC 2.54 L Hgb 7.5 L Hct 24.3 L MCV 95.7 MCH 29.5 MCHC 30.9 L RDW 13.5 Plt Count 244 MPV 8.8 Neut # (Auto) 12.0 H Lymph # (Auto) 0.6 L [place] # (Auto) 1.1 H Eos # (Auto) 0.0 Baso # (Auto) 0.0 Absolute Nucleated RBC 0.00 Nucleated RBC % 0.0 Sodium 134 L Potassium 2.7 L Chloride 104 Carbon Dioxide 20 L Anion Gap 10.0 BUN 23 H Creatinine 1.0 Estimated GFR (MDRD) 54 L Glucose 119 H Lactic Acid 0.7 Calcium 7.8 L Total Bilirubin 0.6 AST 10 ALT < 10 L Alkaline Phosphatase 80 Total Protein 6.0 L Albumin 2.3 L Globulin 3.7 Albumin/Globulin Ratio 0.6 L Urine Color Urine Clarity Urine pH Ur Specific [place] Urine Protein Urine Glucose (UA) Urine Ketones Urine Occult Blood Urine Nitrite Urine Bilirubin Urine Urobilinogen Ur Leukocyte Esterase Urine RBC Urine WBC Ur Squamous Epith Cells Urine Bacteria Urine Culture Comments Nasal Adenovirus (PCR) Nasal B. parapertussis DNA (PCR) Nasal Coronavir 229E PCR Nasal Coronavir HKU1 PCR Nasal Coronavir NL63 PCR Nasal Coronavir OC43 PCR Nasal Enterovir/Rhinovir PCR Nasal Influenza B PCR Nasal Influenza A PCR Nasal Parainfluen 1 PCR Nasal Parainfluen 2 PCR Nasal Parainfluen 3 PCR Nasal Parainfluen 4 PCR Nasal RSV (PCR) Nasal B.pertussis DNA PCR Nasal C.pneumoniae (PCR) [place] Human Metapneumo PCR Nasal M.pneumoniae (PCR) Nasal SARS-CoV-2 (PCR) 06/13/21 06/13/21 02:40 02:42 WBC RBC Hgb Hct MCV MCH MCHC RDW Plt Count MPV Neut # (Auto) Lymph # (Auto) [place] # (Auto) Eos # (Auto) Baso # (Auto) Absolute Nucleated RBC Nucleated RBC % Sodium Potassium Chloride Carbon Dioxide Anion Gap BUN Creatinine Estimated GFR (MDRD) Glucose Lactic Acid Calcium Total Bilirubin AST ALT Alkaline Phosphatase Total Protein Albumin Globulin Albumin/Globulin Ratio Urine Color YELLOW Urine Clarity SL. CLOUDY Urine pH 6.0 Ur Specific [place] 1.010 Urine Protein 30 H Urine Glucose (UA) NEGATIVE Urine Ketones NEGATIVE Urine Occult Blood SMALL H Urine Nitrite NEGATIVE Urine Bilirubin NEGATIVE Urine Urobilinogen 0.2 (NORMAL) Ur Leukocyte Esterase LARGE H Urine RBC 0-5 Urine WBC 11-25 H Ur Squamous Epith Cells NONE SEEN Urine Bacteria Few Urine Culture Comments INDICATED Nasal Adenovirus (PCR) NOT DETECTED Nasal B. parapertussis DNA (PCR) NOT DETECTED Nasal Coronavir 229E PCR NOT DETECTED Nasal Coronavir HKU1 PCR NOT DETECTED Nasal Coronavir NL63 PCR NOT DETECTED Nasal Coronavir OC43 PCR NOT DETECTED Nasal Enterovir/Rhinovir PCR NOT DETECTED Nasal Influenza B PCR NOT DETECTED Nasal Influenza A PCR NOT DETECTED Nasal Parainfluen 1 PCR NOT DETECTED Nasal Parainfluen 2 PCR NOT DETECTED Nasal Parainfluen 3 PCR NOT DETECTED Nasal Parainfluen 4 PCR NOT DETECTED Nasal RSV (PCR) NOT DETECTED Nasal B.pertussis DNA PCR NOT DETECTED Nasal C.pneumoniae (PCR) NOT DETECTED [place] Human Metapneumo PCR NOT DETECTED Nasal M.pneumoniae (PCR) NOT DETECTED Nasal SARS-CoV-2 (PCR) NOT DETECTED - Rads (name of study) CT head without Radiology: Prelim report reviewed (Impression: 1. No acute intracranial process. Subcortical/periventricular white matter hypoattenuation statistically representing changes of chronic microvascular ischemia. Global parenchymal volume loss which is commensurate with reported age.), EMP read indepedently, See rad report Procedures - IVC sono (time) 0045 Bedside IVC sono: IVC measures (cm) (1.29), Dehydration (est 1 liter deficit) PD MEDICAL DECISION MAKING - ED course Complexity details: reviewed old records, reviewed results, re-evaluated patient, considered differential, d/w patient ED course: 76-year-old female with a ureteral stent in place has acute urinary tract infection and she has altered level of consciousness associated with this. She was seen in the emergency department yesterday had an elevated white count was given an intravenous antibiotic she has a decrease in her leukocytosis today but continues to have confusion which is worse. She has weakness. She is found to be mildly dehydrated on interrogation the inferior vena cava and she is administered intravenous saline and Rocephin. She has some improvement in her general affect but remains blunted and demonstrates significant delay in execution of motor commands. Admission of the hospital for sepsis is warranted. Sepsis criteria: Patient arrives with altered level of consciousness, leukocytosis, widened pulse pressure, urinary source of infection and fever recorded by medics. Departure - Departure Disposition: [facility] DC/Xfer Clinical Impression: Urinary tract infection Qualifiers: Urinary tract infection type: acute cystitis Hematuria presence: with hematuria Qualified Code(s): N30.01 - Acute cystitis with hematuria Sepsis Qualifiers: Sepsis type: sepsis due to unspecified organism Sepsis acute organ dysfunction status: with acute organ dysfunction Severe sepsis acute organ dysfunction type: encephalopathy Severe sepsis shock status: without septic shock Qualified Code(s): A41.9 - Sepsis, unspecified organism Discharge Date/Time: 06/13/21 04:43
[2021-06-13] MEDS ORDERED: cefTRIAXone 1 GM VIAL ONE (00:50)
[2021-06-13 01:30] LABS: BASOPHILS % (AUTO) 0.1 %; HCT - HEMATOCRIT 24.3 % (37.0-47.0); HGB - HEMOGLOBIN 7.5 g/dL (12.0-16.0); LYMPHOCYTES # (AUTO) 0.6 10^3/uL (1.5-3.5); MEAN CORPUSCULAR HEMOGLOBIN 29.5 pg (27.0-31.0); MEAN CORPUSCULAR HGB CONC 30.9 g/dL (32.0-36.0); MEAN CORPUSCULAR VOLUME 95.7 fL (81.0-99.0); MEAN PLATELET VOLUME 8.8 fL (7.9-10.8); MONOCYTES # (AUTO) 1.1 10^3/uL (0.0-1.0); MONOCYTES % (AUTO) 7.7 %; NEUTROPHILS % (AUTO) 87.4 %; PLT - PLATELET COUNT 244 10^3/uL (130-450); RED BLOOD COUNT 2.54 10^6/uL (4.20-5.40); RED CELL DISTRIBUTION WIDTH 13.5 % (12.0-15.0); WHITE BLOOD COUNT 13.7 x10^3/uL (4.8-10.8)
[2021-06-13 01:43] LABS: ALBUMIN 2.3 g/dL (3.2-5.5); ALBUMIN/GLOBULIN RATIO 0.6 (1.0-2.2); ALKALINE PHOSPHATASE 80 IU/L (42-121); ALT ALANINE AMINOTRANSFERASE < 10 IU/L (10-60); AST ASPARTATE AMINOTRANSFERASE 10 IU/L (10-42); BILIRUBIN,TOTAL 0.6 mg/dL (0.2-1.0); BUN - BLOOD UREA NITROGEN 23 mg/dL (6-20); CALCIUM 7.8 mg/dL (8.5-10.3); CARBON DIOXIDE - CO2 20 mmol/L (21-32); CHLORIDE 104 mmol/L (101-111); GFR - MDRD 54 (>89); GLUCOSE 119 mg/dL (70-100); POTASSIUM 2.7 mmol/L (3.5-5.0); SODIUM 134 mmol/L (135-145)
[2021-06-13] MEDS ORDERED: POTASSIUM CHLORIDE 20 MEQ/15 ML UDC PO STA (01:54)
[2021-06-13] MEDS ORDERED: POTASSIUM CHLOR 10 MEQ/100 ML 10 MEQ/100 ML BAG IV ONE (01:54)
[2021-06-13 02:46] LABS: BILIRUBIN,URINE NEGATIVE (NEGATIVE); GLUCOSE, URINE (UA) NEGATIVE (NEGATIVE); KETONES,URINE (UA) NEGATIVE (NEGATIVE); LEUKOCYTE ESTERASE, URINE LARGE (NEGATIVE); NITRITE,URINE NEGATIVE (NEGATIVE); OCCULT BLOOD,URINE SMALL (NEGATIVE); PROTEIN,URINE 30 mg/dL (NEGATIVE); UROBILINOGEN,URINE 0.2 (NORMAL) E.U./dL (NORMAL)
[2021-06-13 02:47] LABS: CLARITY,URINE SL. CLOUDY (CLEAR)
[2021-06-13 02:53] LABS: BACTERIA,URINE Few /HPF (None Seen); RBC,URINE 0-5 /HPF (0-5); SQUAMOUS EPITHELIAL CELL,UR NONE SEEN (<= Few)
[2021-06-13 03:35] LABS: B. PARAPERTUSSIS- RESP PCR PAN NOT DETECTED; B. PERTUSSIS- RESP PCR PANEL NOT DETECTED; C. PNEUMONIAE- RESP PCR PANEL NOT DETECTED; CORONAVIRUS 229E-RESP PCR NOT DETECTED; CORONAVIRUS HKU1-RESP PCR NOT DETECTED; CORONAVIRUS NL63-RESP PCR NOT DETECTED; CORONAVIRUS OC43-RESP PCR NOT DETECTED; HUMAN METAPNEUMOVIRUS NOT DETECTED; INFLUENZA A- RESP PCR PANEL NOT DETECTED; INFLUENZA B - RESP PCR PANEL NOT DETECTED; M. PNEUMONIAE- RESP PCR PANEL NOT DETECTED; PARAINFLUENZA VIRUS 1 NOT DETECTED; PARAINFLUENZA VIRUS 2 NOT DETECTED; PARAINFLUENZA VIRUS 3 NOT DETECTED; PARAINFLUENZA VIRUS 4 NOT DETECTED; RHINOVIRUS/ENTEROVIRUS NOT DETECTED; RSV- RESP PCR PANEL NOT DETECTED; SARS-CoV-2 -RESP PCR PANEL NOT DETECTED
[2021-06-13] MEDS ORDERED: ONDANSETRON 4 MG/2 ML VIAL IVP PRN (04:00)
[2021-06-13] MEDS ORDERED: SODIUM CHLORIDE FLUSH 0.9% 10 ML SYRINGE IVP PRN (04:00)
--- NOTE | 2021-06-13 04:26 | HISTORY & PHYSICAL EXAMINATION ---
Chief Complaint - Chief Complaint Chief Complaint: Weakness, AMS History of Present Illness - Admitted From Admitted From:: ED - History Obtained From History obtained from: ED provider and EMR review - History of Present Illness HPI Comment/Other: This is a 76-year-old white female with a history of depression and anxiety, asthma, runs a soft blood pressure chronically, who was admitted here 1 year ago with E. coli UTI and bacteremia (the E coli was samano-sensitive). She was found to have obstructive uropathy and was transferred to [facility] for placement of a stent. The patient presented to the ER yesterday with similar symptoms as 1 year ago: She had developed weakness, dysuria and was found to have an elevated WBC of 21 and a UTI on urinalysis. A CT scan in the ED yesterday showed right-sided hydronephrosis with a ureteral stent that was read as "malfunctioning". Yesterday's ED provider, Dr. Coburn spoke to the Urologist on-call at [facility], Dr. Meng, who advised that she could be sent home on antibiotics and keep her already scheduled appointment with Dr. Mulligan in 3 days for stent removal. She was discharged on Cephalexin. Apparently as she was leaving the ED yesterday, the patient had a fall out of her wheelchair when she was being discharged from the emergency department and struck the back of her head on the left side. Over the next 24 hours she got more obtunded and her brought her to the ED today. Here she is somnolent, does not follow commands, and awakens slightly to a sternal rub, compared to yesterday when she was weak but alert and oriented. A head CT was done today that showed no acute findings but volume loss and aging changes were present. Her WBC has improved from 21 to 13, but the urinalysis still shows bacteria. She had a fever at the scene per report. She is being admitted to Inpatient status for sepsis from a complex UTI with hydronephrosis, failed outpatient antibiotics, and new altered mental status (she is obtunded and only arousable to strong stimuli.) The ED provider, Dr. Sapp, has reached out to [facility] and requested she be transferred there since the ureteral stent removal is planned this Thursday, however they have no open beds, thus the patient is in a queue. History - Past Medical History Respiratory: reports: Asthma Endocrine/Autoimmune: reports: HyPERthyroidism GI: reports: None VIBRATION ANALYST: reports: Other ([id number]. I child was stillborn at . ) : reports: None HEENT: reports: None Psych: reports: Depression Musculoskeletal: reports: Osteoarthritis Derm: reports: None MRSA Hx?: No - Past Surgical History General: reports: Cholecystectomy, Appendectomy, Bowel surgery Ortho: reports: Rotator cuff repair ( 12/2014 but left shoulder also w tear.) /VIBRATION ANALYST: reports: Hysterectomy, Other (R ureteral stent) HEENT: reports: Cataracts (surgery 10/2015) - Family & Social History Family History Comment/Other: Mom had Alzheimer's and of approximately age 97. Dad 82 with an enlarged heart, History of prostate cancer. 1 brother at age 39 from an aneurysm. Second brother alive and well. 2 daughters healthy Living arrangement: At home Living Situation: With spouse/s.o. Social History Notes: and lives with her 3rd . He had 2 daughters from a previous relationship. She had 2 daughters with her first . second. With 3rd for 43 years. 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 She drinks 1 drink a night on a nightly basis. Either wine or scotch. Quit smoking approximately 1975. Prior to that she smoked 1 pack/day for 10 years. No hx of recreational substances. - Substance History Use: Uses substance without health or social issues: Alcohol - POLST Patient has POLST: No POLST Status: Full Code (She and her have talked about this. He is a DO NOT RESUSCITATE and never wants to be disabled and leave the house. Although she is talked about this with him, she has never really come to a conclusion. As such, by default, she will be full code until she decides.) Meds/Allgy - Home Medications Home Medications: Ambulatory Orders Medication Instructions Recorded Confirmed Amitriptyline HCl 150 mg PO DAILY 12/15/14 07/06/20 Ascorbic Acid [Vitamin C] 1,000 mg PO DAILY 12/15/14 07/24/16 Calcium Citrate 500 mg PO DAILY 12/15/14 07/06/20 Clobetasol Propionate 1 applic TP PRN PRN 12/15/14 07/06/20 Cranberry Fruit Extract [Cranberry] 300 mg PO DAILY 12/15/14 07/24/16 Docusate Sodium [Stool Softener] 100 mg PO DAILY 12/15/14 07/06/20 Estrogens, Conjugated [Premarin] 0.3 mg PO DAILY 12/15/14 07/24/16 Gabapentin 300 mg PO TID 12/15/14 07/06/20 Ginkgo Biloba 120 mg PO DAILY 12/15/14 07/24/16 Ibuprofen 200 mg PO DAILY 12/15/14 07/06/20 Iron 65 mg PO DAILY 12/15/14 07/24/16 Metoclopramide [Reglan] 10 mg PO TID 12/15/14 07/06/20 Montelukast Sodium 10 mg PO DAILY 12/15/14 07/06/20 Multivitamin [Multivitamins] 1 each PO DAILY 12/15/14 07/06/20 [place]-3 Fatty Acids [Fish Oil] 1,000 mg PO DAILY 12/15/14 07/06/20 Omeprazole 20 mg PO BID 12/15/14 07/06/20 Oxybutynin [Ditropan] 15 mg PO DAILY 12/15/14 07/06/20 Trazodone HCl 100 mg PO TID 12/15/14 07/06/20 methocarbamoL [Methocarbamol] 750 mg PO DAILY PRN 12/15/14 07/06/20 Fluticasone/Salmeterol [Advair 1 each IH BID 07/24/16 07/06/20 250-50 Diskus] Levothyroxine Sodium 25 mcg PO BID 07/24/16 07/06/20 buPROPion [Wellbutrin Sr] 1 tab PO DAILY 07/24/16 07/06/20 Acetaminophen [Tylenol] 500 mg PO PRN PRN 07/06/20 07/06/20 Albuterol Sulfate [Albuterol 2 puffs IH Q4H PRN 07/06/20 07/06/20 Sulfate Hfa] Furosemide [Lasix] 20 mg PO DAILY 07/06/20 07/06/20 Halobetasol Propionate 1 applic TP PRN PRN 07/06/20 07/06/20 Hydrocodone/Acetaminophen 5 - 325 mg PO Q6H PRN 07/06/20 07/06/20 [Hydrocodon-Acetaminophen 5-325] Mupirocin 2% Oint [Bactroban 2% 1 applic TP PRN PRN 07/06/20 07/06/20 Oint] Neomycin Joel/Bacitrac Zn/Poly 1 applic TP PRN PRN 07/06/20 07/06/20 [Neosporin Ointment] Sucralfate [Carafate] 1 gm PO QID 07/06/20 07/06/20 cephALEXin [Keflex] 500 mg PO TID #20 cap 06/11/21 - Allergies Allergies/Adverse Reactions: Allergies Allergy/AdvReac Type Severity Reaction Status Date / Time latex AdvReac Severe Rash Verified 06/13/21 00:38 Review of Systems - Constitutional Constitutional: reports: Fatigue, Fever, Weakness - Genitourinary Genitourinary: reports: Dysuria - All Other Systems All Other Systems: reports: Other (Positives were obtained from her HPI, the others could not be reviewed since she is obtunded.) Exam - Vital Signs Reviewed Vital Signs: Yes Vital Signs: Vital Signs x48h Temp Pulse Resp BP Pulse Ox 06/13/21 03:44 74 23 106/51 L 99 06/13/21 03:03 75 24 105/51 L 99 06/13/21 02:41 76 21 121/52 L 99 06/13/21 02:04 37.1 C 78 23 111/50 L 98 06/13/21 01:30 77 21 109/50 L 99 06/13/21 01:27 77 21 107/48 L 99 06/13/21 00:42 37.1 C 81 24 115/50 L 94 06/13/21 00:38 37.1 C 81 24 115/50 L 94 - Physical Exam General Appearance: positive: Other (Obtunded, groans to sternal rub) Eyes Bilateral: positive: No lid inflammation ENT: positive: Dry mucous membranes Neck: positive: Nml inspection, No JVD Respiratory: positive: No respiratory distress, Breath sounds nml Cardiovascular: positive: Regular rate & rhythm, Systolic murmur Abdomen: positive: Non-tender, No distention Skin: positive: Warm, Dry, Other (Ecchymosis L ant bhatti) Extremities: positive: No pedal edema Neurologic/Psychiatric: positive: Other (Obtunded, has a R hand tremor when moved spontaneously) Sepsis Event Note (H) - Evaluation Current Stage of Sepsis: Sepsis Possible source of Sepsis: positive: Genitourinary - Sepsis Criteria Sepsis Criteria: Recorded Temperature greater than 38.3C or Less than 36C, Recorded Respiratory Rate greater than 20, WBC count greater than 12,000 or less than 4000, CHARCOAL KILN BURNER: altered consciousness (unrelated to primary neuro pathology) Conclusion/Plan - Problem List (1) Sepsis Conclusion/Plan: She has normal lactic acid level but elevated white count, bacteriuria, altered mental status, and high respiratory rate. The head CT done today showed no evidence of trauma from her fall out of wheelchair yesterday. Will start aggressive IV fluids. Begin IV ceftriaxone. Await urine culture results from the previous ER visit which is already growing gram-negative rods. Obtain blood cultures Follow CBC daily Qualifiers: Sepsis type: sepsis due to unspecified organism Sepsis acute organ dysfunction status: with acute organ dysfunction Severe sepsis acute organ dysfunction type: encephalopathy Severe sepsis shock status: without septic shock Qualified Code(s): A41.9 - Sepsis, unspecified organism; R65.20 - Severe sepsis without septic shock; G93.40 - Encephalopathy, unspecified (2) Complicated UTI (urinary tract infection) Conclusion/Plan: CT abdomen pelvis done when she was in the ED yesterday shows right-sided hydronephrosis and the stent is "malfunctioning". Continue with IV antibiotics. Plan is to transfer to [facility] when they have a bed available, to manage the hydronephrosis and address the malfunctioning ureteral stent (3) Altered mental status Conclusion/Plan: Will begin IV fluids. Monitor her neuro status. Will order clear liquids for diet, advance as tolerated as she hopefully awakens. (4) Hypokalemia Conclusion/Plan: Will begin potassium replacement and her IV fluids and give K riders if necessary. Follow BMP daily (5) Prerenal azotemia Conclusion/Plan: She appears dehydrated with dry oral mucosa. Begin IV fluids. Avoid nephrotoxins. Follow BMP daily (6) Anemia Conclusion/Plan: According to the ED physician, she had a Billroth II procedure and has chronic t rouble with anemia. When she was here a year ago, she had normal B12 and folate levels. Will recheck serum B12, folate levels and iron stores and replace if low. Follow CBC daily. (7) Depression with anxiety Conclusion/Plan: Her antidepressants will be on hold until she is more alert and able to swallow her meds that will be resumed once reconciled (8) History of asthma Conclusion/Plan: There is no evidence of wheezing or asthmatic exacerbation currently. We will resume her meds when they are reconciled - Lab Results Fish Bones: 06/13/21 01:28 06/13/21 01:28 - Diagnostic Imaging Results Diagnostic Imaging Results: positive: Final report reviewed
[2021-06-13] MEDS: D5NS W/20 MEQ KCL 1,000 ML IV SCH ×3 (04:36→23:58)
[2021-06-13] MEDS: SODIUM CHLORIDE FLUSH 0.9% 10 ML SYRINGE IVP SCH ×3 (04:36→23:58)
--- NOTE | 2021-06-13 07:29 | CT Report ---
PROCEDURE: HEAD WO INDICATIONS: head injury on eliquis TECHNIQUE: Noncontrast 4.5 mm thick angled axial sections acquired from the foramen magnum to the vertex. For r adiation dose reduction, the following was used: automated exposure control, adjustment of mA and/or kV according to patient size. COMPARISON: 09/27/2014 FINDINGS: Image quality: Excellent. CSF spaces: Basal cisterns are patent. No extra-axial fluid collections. The ventricles are symmet amberly in size and shape. Brain: No intracranial bleeds or masses. There is cerebral volume loss for age, with resultant vent ricular and sulcal prominence. There are periventricular and deep white matter chronic small vessel ischemic changes. There is intracranial internal carotid artery atherosclerosis. Skull and face: Calvarium and visualized facial bones appear intact, without suspicious lesions. Sinuses: Visualized sinuses and mastoids are clear. IMPRESSION: No acute intracranial disease process. Reviewed by: Brie Blanco MD, PhD on 06/13/2021 7:28 AM PDT Approved by: Brie Blanco MD, PhD on 06/13/2021 7:28 AM PDT Station ID: [id number]
--- NOTE | 2021-06-13 07:51 | PROVIDER PROGRESS NOTE ---
Subjective - Prog Note Date Prog Note Date: 06/13/21 Prog Note Time: 17:20 - Subjective Subjective: Labs have normalized overnight. Sodium and potassium are now normal. Follow-up labs for anemia show iron to be low at 16. TIBC 210. Percent saturation 8. Transferrin 150. B12 is normal and folate is normal. White cell count is staying the same at 13.7 on admission and 13.8 now. She is 99% on room air. Afebrile. She is still weak, more oriented but having a hard time maintaining a thought process. At signout we were told that she is third on the list for transfer to [facility] because of urosepsis with an obstructed kidney and a nonfunctioning stent. Current Medications - Current Medications Current Medications: Active Medications Acetaminophen (Acetaminophen 325 Mg Tablet) 650 mg PO Q4HR PRN PRN Reason: Pain or Fever > 38C (100.4F) Potassium Chloride/Dextrose/Sod Cl (D5ns W/20 Meq Kcl) 1,000 mls @ 100 mls/hr IV .Q10H [facility] Last Admin: 06/13/21 04:36 Dose: 100 mls/hr Documented by: Ceftriaxone Sodium 1 gm/ (Sodium Chloride) 100 mls @ 200 mls/hr IV HS [facility] Ondansetron HCl (Ondansetron 4 Mg/2 Ml Vial) 4 mg IVP Q6HR PRN PRN Reason: Nausea / Vomiting Sodium Chloride (Sodium Chloride Flush 0.9% 10 Ml Syringe) 10 ml IVP PRN PRN PRN Reason: NEEDED PER PROVIDER ORDERS Sodium Chloride (Sodium Chloride Flush 0.9% 10 Ml Syringe) 10 ml IVP 0100,0900,1700 [facility] Last Admin: 06/13/21 04:36 Dose: 10 ml Documented by: Amitriptyline HCl 150 mg PO DAILY 12/15/14 Ascorbic Acid [Vitamin C] 1,000 mg PO DAILY 12/15/14 Calcium Citrate 500 mg PO DAILY 12/15/14 Clobetasol Propionate 1 applic TP PRN PRN 12/15/14 Cranberry Fruit Extract [Cranberry] 300 mg PO DAILY 12/15/14 Docusate Sodium [Stool Softener] 100 mg PO DAILY 12/15/14 Estrogens, Conjugated [Premarin] 0.3 mg PO DAILY 12/15/14 Gabapentin 300 mg PO TID 12/15/14 Ginkgo Biloba 120 mg PO DAILY 12/15/14 Ibuprofen 200 mg PO DAILY 12/15/14 Iron 65 mg PO DAILY 12/15/14 Metoclopramide [Reglan] 10 mg PO TID 12/15/14 Montelukast Sodium 10 mg PO DAILY 12/15/14 Multivitamin [Multivitamins] 1 each PO DAILY 12/15/14 [place]-3 Fatty Acids [Fish Oil] 1,000 mg PO DAILY 12/15/14 Omeprazole 20 mg PO BID 12/15/14 Oxybutynin [Ditropan] 15 mg PO DAILY 12/15/14 Trazodone HCl 100 mg PO TID 12/15/14 methocarbamoL [Methocarbamol] 750 mg PO DAILY PRN 12/15/14 Fluticasone/Salmeterol [Advair 250-50 Diskus] 1 each IH BID 07/24/16 Levothyroxine Sodium 25 mcg PO BID 07/24/16 buPROPion [Wellbutrin Sr] 1 tab PO DAILY 07/24/16 Acetaminophen [Tylenol] 500 mg PO PRN PRN 07/06/20 Albuterol Sulfate [Albuterol Sulfate Hfa] 2 puffs IH Q4H PRN 07/06/20 Furosemide [Lasix] 20 mg PO DAILY 07/06/20 Halobetasol Propionate 1 applic TP PRN PRN 07/06/20 Hydrocodone/Acetaminophen [Hydrocodon-Acetaminophen 5-325] 5 - 325 mg PO Q6H PRN 07/06/20 Mupirocin 2% Oint [Bactroban 2% Oint] 1 applic TP PRN PRN 07/06/20 Neomycin Joel/Bacitrac Zn/Poly [Neosporin Ointment] 1 applic TP PRN PRN 07/06/20 Sucralfate [Carafate] 1 gm PO QID 07/06/20 Objective - Vital Signs/Intake & Output Reviewed Vital Signs: Yes Vital Signs: Vital Signs x48h Temp Pulse Pulse Resp BP BP Pulse Ox 06/13/21 05:54 36.6 C 79 18 100 06/13/21 04:44 36.6 C 79 18 115/48 L 100 06/13/21 04:21 74 25 H 106/49 L 99 06/13/21 03:44 74 23 106/51 L 99 08/26/21 03:03 75 24 105/51 L 99 06/13/21 02:41 76 21 121/52 L 99 06/13/21 02:04 37.1 C 78 23 111/50 L 98 06/13/21 01:30 77 21 109/50 L 99 06/13/21 01:27 77 21 107/48 L 99 06/13/21 00:42 37.1 C 81 24 115/50 L 94 06/13/21 00:38 37.1 C 81 24 115/50 L 94 Intake & Output: Intake & Output 06/10/21 06/11/21 06/12/21 06/13/21 23:59 23:59 23:59 23:59 Intake Total 2200 Output Total 750 Balance 1450 - Objective General Appearance: positive: Lethargic Eyes Bilateral: positive: PERRL, EOMI ENT: positive: No signs of dehydration Neck: positive: No JVD. negative: Stiff neck Respiratory: positive: No respiratory distress. negative: Wheezes, Rales, Rhonchi Cardiovascular: positive: Regular rate & rhythm, Systolic murmur. negative: Gallop/S4, Friction rub Abdomen: positive: Tenderness, Other (Right flank pain. She grimaces when I palpate toward the mid axillary line on that right side, and toward the back. Hypoactive bowel sounds. No masses palpable.) Skin: positive: Warm, Dry Extremities: positive: Full ROM, No pedal edema Neurologic/Psychiatric: positive: CN's nml (2-12), Motor nml (And that there is no focal deficits but she has generalized weakness. She was relying on the nurses just to sit her up.), Disoriented to place, Disoriented to time - Lab Results Fish Bones: 06/13/21 07:37 06/13/21 07:37 Other Labs: Lab Results x24hrs 06/13/21 06/13/21 06/13/21 Range/Units 02:42 02:40 01:28 WBC (4.8-10.8) x10^3/uL RBC (4.20-5.40) 10^6/uL Hgb (12.0-16.0) g/dL Hct (37.0-47.0) % MCV (81.0-99.0) fL MCH (27.0-31.0) pg MCHC (32.0-36.0) g/dL RDW (12.0-15.0) % Plt Count (130-450) 10^3/uL MPV (7.9-10.8) fL Neut # (Auto) (1.5-6.6) 10^3/uL Lymph # (Auto) (1.5-3.5) 10^3/uL Pinal # (Auto) (0.0-1.0) 10^3/uL Eos # (Auto) (0.0-0.7) 10^3/uL Baso # (Auto) (0.0-0.1) 10^3/uL Absolute Nucleated RBC x10^3/uL Nucleated RBC % /100WBC Sodium (135-145) mmol/L Potassium (3.5-5.0) mmol/L Chloride (101-111) mmol/L Carbon Dioxide (21-32) mmol/L Anion Gap (6-13) BUN (6-20) mg/dL Creatinine (0.4-1.0) mg/dL Estimated GFR (MDRD) (>89) Glucose (70-100) mg/dL Lactic Acid 0.7 (0.5-2.2) mmol/L Calcium (8.5-10.3) mg/dL Total Bilirubin (0.2-1.0) mg/dL AST (10-42) IU/L ALT (10-60) IU/L Alkaline Phosphatase (42-121) IU/L Total Protein (6.7-8.2) g/dL Albumin (3.2-5.5) g/dL Globulin (2.1-4.2) g/dL Albumin/Globulin Ratio (1.0-2.2) Urine Color YELLOW Urine Clarity SL. CLOUDY (CLEAR) Urine pH 6.0 (5.0-7.5) PH Ur Specific Sterling 1.010 (1.002-1.030) Urine Protein 30 H (NEGATIVE) mg/dL Urine Glucose (UA) NEGATIVE (NEGATIVE) mg/dL Urine Ketones NEGATIVE (NEGATIVE) mg/dL Urine Occult Blood SMALL H (NEGATIVE) Urine Nitrite NEGATIVE (NEGATIVE) Urine Bilirubin NEGATIVE (NEGATIVE) Urine Urobilinogen 0.2 (NORMAL) (NORMAL) E.U./dL Ur Leukocyte Esterase LARGE H (NEGATIVE) Urine RBC 0-5 (0-5) /HPF Urine WBC 11-25 H (0-5) /HPF Ur Squamous Epith Cells NONE SEEN (<= Few) Urine Bacteria Few (None Seen) /HPF Urine Culture Comments INDICATED Nasal Adenovirus (PCR) NOT DETECTED Nasal B. parapertussis DNA (PCR) NOT DETECTED Nasal Coronavir 229E PCR NOT DETECTED Nasal Coronavir HKU1 PCR NOT DETECTED Nasal Coronavir NL63 PCR NOT DETECTED Nasal Coronavir OC43 PCR NOT DETECTED Nasal Enterovir/Rhinovir PCR NOT DETECTED Nasal Influenza B PCR NOT DETECTED Nasal Influenza A PCR NOT DETECTED Nasal Parainfluen 1 PCR NOT DETECTED Nasal Parainfluen 2 PCR NOT DETECTED Nasal Parainfluen 3 PCR NOT DETECTED Nasal Parainfluen 4 PCR NOT DETECTED Nasal RSV (PCR) NOT DETECTED Nasal B.pertussis DNA PCR NOT DETECTED Nasal C.pneumoniae (PCR) NOT DETECTED Roland Human Metapneumo PCR NOT DETECTED Nasal M.pneumoniae (PCR) NOT DETECTED Nasal SARS-CoV-2 (PCR) NOT DETECTED 06/13/21 06/13/21 Range/Units 01:28 01:28 WBC 13.7 H (4.8-10.8) x10^3/uL RBC 2.54 L (4.20-5.40) 10^6/uL Hgb 7.5 L (12.0-16.0) g/dL Hct 24.3 L (37.0-47.0) % MCV 95.7 (81.0-99.0) fL MCH 29.5 (27.0-31.0) pg MCHC 30.9 L (32.0-36.0) g/dL RDW 13.5 (12.0-15.0) % Plt Count 244 (130-450) 10^3/uL MPV 8.8 (7.9-10.8) fL Neut # (Auto) 12.0 H (1.5-6.6) 10^3/uL Lymph # (Auto) 0.6 L (1.5-3.5) 10^3/uL Pinal # (Auto) 1.1 H (0.0-1.0) 10^3/uL Eos # (Auto) 0.0 (0.0-0.7) 10^3/uL Baso # (Auto) 0.0 (0.0-0.1) 10^3/uL Absolute Nucleated RBC 0.00 x10^3/uL Nucleated RBC % 0.0 /100WBC Sodium 134 L (135-145) mmol/L Potassium 2.7 L (3.5-5.0) mmol/L Chloride 104 (101-111) mmol/L Carbon Dioxide 20 L (21-32) mmol/L Anion Gap 10.0 (6-13) BUN 23 H (6-20) mg/dL Creatinine 1.0 (0.4-1.0) mg/dL Estimated GFR (MDRD) 54 L (>89) Glucose 119 H (70-100) mg/dL Lactic Acid (0.5-2.2) mmol/L Calcium 7.8 L (8.5-10.3) mg/dL Total Bilirubin 0.6 (0.2-1.0) mg/dL AST 10 (10-42) IU/L ALT < 10 L (10-60) IU/L Alkaline Phosphatase 80 (42-121) IU/L Total Protein 6.0 L (6.7-8.2) g/dL Albumin 2.3 L (3.2-5.5) g/dL Globulin 3.7 (2.1-4.2) g/dL Albumin/Globulin Ratio 0.6 L (1.0-2.2) Urine Color Urine Clarity (CLEAR) Urine pH (5.0-7.5) PH Ur Specific Sterling (1.002-1.030) Urine Protein (NEGATIVE) mg/dL Urine Glucose (UA) (NEGATIVE) mg/dL Urine Ketones (NEGATIVE) mg/dL Urine Occult Blood (NEGATIVE) Urine Nitrite (NEGATIVE) Urine Bilirubin (NEGATIVE) Urine Urobilinogen (NORMAL) E.U./dL Ur Leukocyte Esterase (NEGATIVE) Urine RBC (0-5) /HPF Urine WBC (0-5) /HPF Ur Squamous Epith Cells (<= Few) Urine Bacteria (None Seen) /HPF Urine Culture Comments Nasal Adenovirus (PCR) Nasal B. parapertussis DNA (PCR) Nasal Coronavir 229E PCR Nasal Coronavir HKU1 PCR Nasal Coronavir NL63 PCR Nasal Coronavir OC43 PCR Nasal Enterovir/Rhinovir PCR Nasal Influenza B PCR Nasal Influenza A PCR Nasal Parainfluen 1 PCR Nasal Parainfluen 2 PCR Nasal Parainfluen 3 PCR Nasal Parainfluen 4 PCR Nasal RSV (PCR) Nasal B.pertussis DNA PCR Nasal C.pneumoniae (PCR) Roland Human Metapneumo PCR Nasal M.pneumoniae (PCR) Nasal SARS-CoV-2 (PCR) ABX Reporting Has patient been on IV antibiotics over the past 48 hours?: Yes Sepsis Event Note (H) - Evaluation Current Stage of Sepsis: Sepsis Possible source of Sepsis: positive: Genitourinary - Sepsis Criteria Sepsis Criteria: Recorded Temperature greater than 38.3C or Less than 36C, Recorded Respiratory Rate greater than 20, WBC count greater than 12,000 or less than 4000, SOIL FIELD TECHNICIAN: altered consciousness (unrelated to primary neuro pathology) Assessment/Plan - Problem List (1) Sepsis Impression: She has normal lactic acid level but elevated white count, bacteriuria, altered mental status, and high respiratory rate. The head CT done today showed no evidence of trauma from her fall out of wheelchair yesterday. Is been started on aggressive IV fluids, and is on ceftriaxone dose #2 today. Urine culture from June 11 is Klebsiella pneumonia. Resistant to ampicillin but sensitive to cefazolin, ceftriaxone. Blood cultures are pending. CBC is not really responding so far.Most likely she still needs to have some type of urologic procedure to unblock that right kidney. Will await urology and bed availability at [facility] Qualifiers: Sepsis type: sepsis due to unspecified organism Sepsis acute organ dysfunction status: with acute organ dysfunction Severe sepsis acute organ dysfunction type: encephalopathy Severe sepsis shock status: without septic shock Qualified Code(s): A41.9 - Sepsis, unspecified organism; R65.20 - Severe sepsis without septic shock; G93.40 - Encephalopathy, unspecified (2) Complicated UTI (urinary tract infection) Conclusion/Plan: CT abdomen pelvis done when she was in the ED Admission showing right-sided hydronephrosis and the stent is "malfunctioning". Continue with IV antibiotics. Plan is to transfer to [facility] when they have a bed available, to manage the hydronephrosis and address the malfunctioning ureteral stent (3) Altered mental status Continues. Conclusion/Plan: Treated for sepsis, and source of infection identified. CT of the head is negative. We will continue supportive measures. Hopefully once infection is successfully treated she will be able to clear. (4) Hypokalemia Conclusion/Plan: Potassium and sodium normal this morning. Continue to follow. (5) Prerenal azotemia Conclusion/Plan: Dry oral mucosa last night. Improved this morning. This morning's BUN and creatinine is 19 and 0.9. (6) Anemia Conclusion/Plan: According to the ED physician, she had a Billroth II procedure and has chronic trouble with anemia. When she was here a year ago, she had normal B12 and folate levels. Iron stores are quite low. B12 and folate levels are normal. Plan: Consider iron infusion once her more critical problems are stable. Consider regularly scheduled iron infusions in the outpatient setting since she most likely has problems with absorption. (7) Depression with anxiety Conclusion/Plan: Her antidepressants will be on hold until she is more alert and able to swallow her meds that will be resumed once reconciled (8) History of asthma Conclusion/Plan: There is no evidence of wheezing or asthmatic exacerbation currently. We will resume her meds when they are reconciled
[2021-06-13 08:01] LABS: BASOPHILS % (AUTO) 0.2 %; EOSINOPHILS % (AUTO) 0.1 %; HCT - HEMATOCRIT 29.1 % (37.0-47.0); LYMPHOCYTES % (AUTO) 6.9 %; MEAN CORPUSCULAR HEMOGLOBIN 29.3 pg (27.0-31.0); MEAN CORPUSCULAR HGB CONC 30.9 g/dL (32.0-36.0); MEAN CORPUSCULAR VOLUME 94.8 fL (81.0-99.0); MEAN PLATELET VOLUME 9.4 fL (7.9-10.8); MONOCYTES # (AUTO) 0.8 10^3/uL (0.0-1.0); NEUTROPHILS # (AUTO) 11.9 10^3/uL (1.5-6.6); NEUTROPHILS % (AUTO) 85.9 %; PLT - PLATELET COUNT 248 10^3/uL (130-450); RED BLOOD COUNT 3.07 10^6/uL (4.20-5.40); RED CELL DISTRIBUTION WIDTH 13.7 % (12.0-15.0); WHITE BLOOD COUNT 13.8 x10^3/uL (4.8-10.8)
[2021-06-13 08:08] LABS: CREATININE 0.9 mg/dL (0.4-1.0); MAGNESIUM 2.3 mg/dL (1.7-2.8); POTASSIUM 3.5 mmol/L (3.5-5.0)
[2021-06-13 08:32] LABS: FOLATE 10.74 ng/mL (5.90 - >24.8)
[2021-06-13 09:11] LABS: % IRON SATURATION 8 % (20-50); IRON 16 ug/dL (28-170); TOTAL IRON BINDING CAPACITY 210 ug/dL (250-450); TRANSFERRIN 150 mg/dL (192-382)
--- NOTE | 2021-06-13 12:22 | PHARMACY PROGRESS NOTE ---
- Best Possible Medication History Admit Date and Time: 06/13/21 0404 Processed by: Pharmacy Medication History completed: Yes Patient Interview: Completed ( CALLED AND ABLE TO CONFIRM HOME MEDICATIONS) As the person ultimately responsible for medication therapy, providers are able to order a medication from an existing home medication list in [facility] via the "Reconcile Routine" prior to Confirmation of that medication by sales support associate. Such practice is discouraged except when the physician, in their clinical judgment, deems that a medical need exists for a medication without regard to previous use.
[2021-06-13] MEDS: cefTRIAXone 1 GM in SODIUM CHLORIDE 0.9% MINIBAG 100 ML IV SCH (13:52)
[2021-06-13] MEDS: ACETAMINOPHEN 325 MG TABLET PO PRN (16:46)
[2021-06-13] MEDS: FORMOTEROL FUMARATE NEB 20 MCG/2 ML INH SCH (21:07)
[2021-06-13] MEDS: ALBUTEROL NEB 2.5 MG/3 ML INH PRN (21:07)
[2021-06-13] MEDS: BUDESONIDE 0.5 MG/2 ML NEB INH SCH (21:08)
[2021-06-14] MEDS: ACETAMINOPHEN 325 MG TABLET PO PRN ×4 (00:07→17:50)
[2021-06-14 05:16] LABS: BASOPHILS % (AUTO) 0.3 %; EOSINOPHILS % (AUTO) 9.3 %; HCT - HEMATOCRIT 24.3 % (37.0-47.0); HGB - HEMOGLOBIN 7.2 g/dL (12.0-16.0); LYMPHOCYTES % (AUTO) 6.7 %; MEAN CORPUSCULAR HEMOGLOBIN 28.6 pg (27.0-31.0); MEAN CORPUSCULAR HGB CONC 29.6 g/dL (32.0-36.0); MEAN CORPUSCULAR VOLUME 96.4 fL (81.0-99.0); MEAN PLATELET VOLUME 9.2 fL (7.9-10.8); MONOCYTES % (AUTO) 6.5 %; NEUTROPHILS % (AUTO) 76.7 %; PLT - PLATELET COUNT 281 10^3/uL (130-450); RED BLOOD COUNT 2.52 10^6/uL (4.20-5.40); RED CELL DISTRIBUTION WIDTH 13.9 % (12.0-15.0); WHITE BLOOD COUNT 11.1 x10^3/uL (4.8-10.8)
[2021-06-14 05:21] LABS: ABNORMAL LYMPHS % (MANUAL) 0 %; BAND NEUTROPHILS % (MANUAL) 0 %
[2021-06-14 05:27] LABS: CALCIUM 7.7 mg/dL (8.5-10.3); CREATININE 0.8 mg/dL (0.4-1.0); MAGNESIUM 1.8 mg/dL (1.7-2.8); POTASSIUM 3.3 mmol/L (3.5-5.0)
[2021-06-14 05:44] LABS: EOSINOPHILS # (MANUAL) 0.6 10^3/uL (0-0.7); LYMPHOCYTES # (MANUAL) 0.9 10^3/uL (1.5-3.5); LYMPHOCYTES % (MANUAL) 8 %; MONOCYTES # (MANUAL) 0.7 10^3/uL (0.0-1.0); PLATELET MORPHOLOGY NORMAL APPEARANCE (NORMAL); RBC MORPHOLOGY (MULTIPLE) 1+ HYPOCHROMASIA (NORMAL)
[2021-06-14 05:45] LABS: DIFFERENTIAL COMMENT MANUAL DIFFERENTIAL; PLATELET ESTIMATE, MANUAL NORMAL (130-450,000) (NORMAL); WBC MORPHOLOGY (MULTIPLE) NORMAL APPEARANCE (NORMAL)
[2021-06-14] MEDS: FORMOTEROL FUMARATE NEB 20 MCG/2 ML INH SCH ×2 (07:13→21:10)
[2021-06-14] MEDS: BUDESONIDE 0.5 MG/2 ML NEB INH SCH ×2 (07:13→21:10)
[2021-06-14] MEDS: ALBUTEROL NEB 2.5 MG/3 ML INH PRN ×3 (07:14→21:10)
[2021-06-14] MEDS ORDERED: POTASSIUM CHLORIDE 20 MEQ TABLET PO ONE (07:51)
[2021-06-14] MEDS: CALCIUM CARBONATE CHEW 500 MG TABLET PO PRN ×2 (08:16→17:49)
[2021-06-14] MEDS: SODIUM CHLORIDE FLUSH 0.9% 10 ML SYRINGE IVP SCH ×2 (08:28→17:51)
[2021-06-14] MEDS: cefTRIAXone 1 GM in SODIUM CHLORIDE 0.9% MINIBAG 100 ML IV SCH (08:32)
[2021-06-14] MEDS: D5NS W/20 MEQ KCL 1,000 ML IV SCH (10:27)
[2021-06-14 11:24] LABS: BASOPHILS % (AUTO) 0.2 %; EOSINOPHILS % (AUTO) 0.2 %; HCT - HEMATOCRIT 24.3 % (37.0-47.0); HGB - HEMOGLOBIN 7.5 g/dL (12.0-16.0); LYMPHOCYTES # (AUTO) 0.5 10^3/uL (1.5-3.5); LYMPHOCYTES % (AUTO) 4.2 %; MEAN CORPUSCULAR HGB CONC 30.9 g/dL (32.0-36.0); MEAN CORPUSCULAR VOLUME 97.2 fL (81.0-99.0); MEAN PLATELET VOLUME 9.2 fL (7.9-10.8); MONOCYTES # (AUTO) 0.8 10^3/uL (0.0-1.0); MONOCYTES % (AUTO) 6.7 %; NEUTROPHILS # (AUTO) 10.1 10^3/uL (1.5-6.6); PLT - PLATELET COUNT 260 10^3/uL (130-450); RED CELL DISTRIBUTION WIDTH 13.8 % (12.0-15.0); WHITE BLOOD COUNT 11.4 x10^3/uL (4.8-10.8)
[2021-06-14 11:36] LABS: ALBUMIN 2.3 g/dL (3.2-5.5); ALBUMIN/GLOBULIN RATIO 0.6 (1.0-2.2); ALKALINE PHOSPHATASE 92 IU/L (42-121); ALT ALANINE AMINOTRANSFERASE < 10 IU/L (10-60); AST ASPARTATE AMINOTRANSFERASE 11 IU/L (10-42); BILIRUBIN,TOTAL 0.4 mg/dL (0.2-1.0); BUN - BLOOD UREA NITROGEN 9 mg/dL (6-20); CALCIUM 7.8 mg/dL (8.5-10.3); CARBON DIOXIDE - CO2 17 mmol/L (21-32); CHLORIDE 111 mmol/L (101-111); CREATININE 0.7 mg/dL (0.4-1.0); GFR - MDRD 81 (>89); GLUCOSE 123 mg/dL (70-100); POTASSIUM 3.5 mmol/L (3.5-5.0); SODIUM 136 mmol/L (135-145); TOTAL PROTEIN 6.2 g/dL (6.7-8.2)
--- NOTE | 2021-06-14 11:38 | PROVIDER PROGRESS NOTE ---
Subjective - Prog Note Date Prog Note Date: 06/14/21 Prog Note Time: 11:36 - Subjective Pt reports feeling: Improved (Patient complains of flank pain on the right side, back pain, and overall does not feel that well) Current Medications - Current Medications Current Medications: Current Medications Generic Name Dose Route Start Last Admin Trade Name Freq PRN Reason Stop Dose Admin Acetaminophen 650 mg 06/13/21 04:00 06/14/21 08:16 Acetaminophen 325 Mg Tablet PO 650 mg Q4HR PRN Administration Pain or Fever > 38C (100.4F) Albuterol 2.5 mg 06/13/21 16:22 06/14/21 07:14 Albuterol Neb 2.5 Mg/3 Ml INH 2.5 mg RTQ4H PRN Administration Wheezing Budesonide 0.5 mg 06/13/21 19:00 06/14/21 07:13 Budesonide 0.5 Mg/2 Ml Neb INH 0.5 mg RTBID RENEE Administration Calcium Carbonate/Glycine 500 mg 06/14/21 07:00 06/14/21 08:16 Calcium Carbonate Chew 500 Mg Tablet PO 500 mg BID PRN Administration Heartburn Formoterol Fumarate 20 mcg 06/13/21 19:00 06/14/21 07:13 Formoterol Fumarate Neb 20 Mcg/2 Ml INH 20 mcg RTBID RENEE Administration Potassium Chloride/Dextrose/Sod Cl 1,000 mls @ 100 mls/hr 06/13/21 04:00 06/14/21 10:27 D5ns W/20 Meq Kcl IV 100 mls/hr .Q10H RENEE Administration Ceftriaxone Sodium 1 gm/ 100 mls @ 200 mls/hr 06/13/21 13:00 06/14/21 09:02 Sodium Chloride IV Infused DAILY RENEE Infusion Sodium Chloride 10 ml 06/13/21 09:00 06/14/21 08:28 Sodium Chloride Flush 0.9% 10 Ml Syringe IVP Not Given 0100,0900,1700 RENEE Objective - Vital Signs/Intake & Output Reviewed Vital Signs: Yes Vital Signs: Vital Signs x48h Temp Pulse Pulse Resp BP Pulse Ox 06/14/21 07:43 37.7 C 96 18 147/62 H 97 06/14/21 07:15 104 H 20 06/14/21 04:42 36.7 C 101 H 18 145/68 H 100 Intake & Output: Intake & Output 06/11/21 06/12/21 06/13/21 06/14/21 23:59 23:59 23:59 23:59 Intake Total 5105 1400 Output Total 1400 800 Balance 3705 600 - Objective General Appearance: positive: No acute distress, Anxious Eyes Bilateral: positive: Normal inspection Neck: positive: Nml inspection Respiratory: positive: Chest non-tender, No respiratory distress, Breath sounds nml Cardiovascular: positive: Regular rate & rhythm, No murmur, No gallop Abdomen: positive: Non-tender, No organomegaly, Nml bowel sounds, No distention Back: positive: Nml inspection, CVA tenderness (R) Skin: positive: Color nml, No rash, Warm, Dry Extremities: positive: Non-tender, Nml appearance Neurologic/Psychiatric: positive: Oriented x3, Other (Patient is well oriented but does have a delay in her responses suggestive of either mild confusion or possible underlying mild dementia. Very mild trace tremors noted without e vidence of asterixis) - Lab Results Fish Bones: 06/14/21 11:15 06/14/21 04:55 Other Labs: Lab Results x24hrs 06/14/21 06/14/21 06/14/21 Range/Units 11:15 04:55 04:55 WBC 11.4 H 11.1 H (4.8-10.8) x10^3/uL RBC 2.50 L 2.52 L (4.20-5.40) 10^6/uL Hgb 7.5 L 7.2 L (12.0-16.0) g/dL Hct 24.3 L 24.3 L (37.0-47.0) % MCV 97.2 96.4 (81.0-99.0) fL MCH 30.0 28.6 (27.0-31.0) pg MCHC 30.9 L 29.6 L (32.0-36.0) g/dL RDW 13.8 13.9 (12.0-15.0) % Plt Count 260 281 (130-450) 10^3/uL MPV 9.2 9.2 (7.9-10.8) fL Neut # (Auto) 10.1 H Not Reportable Lymph # (Auto) 0.5 L Not Reportable [place] # (Auto) 0.8 Not Reportable Eos # (Auto) 0.0 Not Reportable Baso # (Auto) 0.0 Not Reportable Absolute Nucleated RBC 0.00 Not Reportable Total Counted 100 Band Neuts % (Manual) 0 (0 - 10) % Abnorm Lymph % (Manual) 0 % Nucleated RBC % 0.0 Not Reportable Neutrophils # (Manual) 9.0 H (1.5-6.6) 10^3/uL Lymphocytes # (Manual) 0.9 L (1.5-3.5) 10^3/uL Monocytes # (Manual) 0.7 (0.0-1.0) 10^3/uL Eosinophils # (Manual) 0.6 (0-0.7) 10^3/uL Basophils # (Manual) 0.0 (0-0.1) 10^3/uL Differential Comment MANUAL DIFFERENTIAL WBC Morphology NORMAL APPEARANCE (NORMAL) Platelet Estimate NORMAL (130-450,000) (NORMAL) Platelet Morphology NORMAL APPEARANCE (NORMAL) RBC Morph Micro Appear 1+ HYPOCHROMASIA (NORMAL) Sodium 136 (135-145) mmol/L Potassium 3.3 L (3.5-5.0) mmol/L Chloride 109 (101-111) mmol/L Carbon Dioxide 17 L (21-32) mmol/L Anion Gap 10.0 (6-13) BUN 11 (6-20) mg/dL Creatinine 0.8 (0.4-1.0) mg/dL Estimated GFR (MDRD) 69 L (>89) Glucose 119 H (70-100) mg/dL Calcium 7.7 L (8.5-10.3) mg/dL Magnesium 1.8 (1.7-2.8) mg/dL ABX Reporting Has patient been on IV antibiotics over the past 48 hours?: Yes Sepsis Event Note (H) - Evaluation Current Stage of Sepsis: Sepsis Possible source of Sepsis: positive: Genitourinary - Sepsis Criteria Sepsis Criteria: Recorded Temperature greater than 38.3C or Less than 36C, Recorded Respiratory Rate greater than 20, WBC count greater than 12,000 or less than 4000, ASSISTANT PROFESSOR OF RELIGION: altered consciousness (unrelated to primary neuro pathology) Assessment/Plan - Problem List (1) Ureteral stent occlusion Impression: Patient with recurrent episode of ureteral stent occlusion, suspect due to lack of appropriate follow-up to remove stent. Presented with sepsis secondary to UTI as a consequence of ureteral stent Clinically responding fairly well to antibiotics and sepsis has since resolved Plan is to have interventional radiology at [facility] remove the stent. Patient will be transferred for this procedure only, then returned to [facility] to complete her course of medical treatment. Will need to follow-up with urology as an outpatient For now, continue IV Ceftriaxone (Given negative blood culture, consider transition to oral antibiotics post procedure) (2) Acute metabolic encephalopathy Impression: Present on admission Secondary to sepsis secondary to UTI secondary to ureteral stent occlusion Improving Still has some very mild underlying confusion which may be related to chronic dementia versus alcohol withdrawal Initiated CIOR protocol as below Continue to monitor (3) Chronic iron deficiency anemia Impression: Patient with known history of iron deficiency anemia with iron labs confirming low iron on this admission H&H relatively stable No evidence of bleeding No indication for transfusion at this time Consider outpatient iron infusions (4) Complicated UTI (urinary tract infection) Impression: As above, patient presented with UTI with sepsis due to occluded ureteral stent Responding fairly well to antibiotics Continue antibiotics and follow-up post procedure with interventional radiology stent retrieval (5) Hypokalemia Impression: Though low normal potassium level this morning Continue to monitor and replace as needed
--- NOTE | 2021-06-14 19:44 | PROVIDER PROGRESS NOTE ---
Co Pilot Note - Co Pilot Note Co Pilot Note: RN called this Hospitalist to see patient at about 1930 who started complaining of 10/10 chest pain, SOB and HR had risen to 120 in sinus tachy. Pt described to me that she feels SOB, cold, has been sneezing which causes pleuritic CP across the anterior precordium, and it "hurts to take a deep breath". She denies having this before, and states it is "as bad as her R lower back pain" and points to her R groin. No nausea and pain was not caused by eating dinner. BP 150/69 HR 120 and regular O2 sat 96% on room air Chest: clear anteriorly Heart: tachy, no murmur, no rub Abd: soft, no guarding or rebound Neuro: alert, has resting tremor of jaw, hands and feet STAT EKG was done and showed (I interpreted EKG): Sinus tachy at 105, otherwise WNL and similar to EKG from 07/06/2020 Imp: Pleuritic CP SOB Tachycardia Obtundation has resolved; she was sleepy for 2 days and only moaned to sternal rub, concern for aspiration PNA therefore R ureteral stent occluded; she still needs intervention which is pending in 3 days Sepsis from UTI; improving Klebsiella UTI (this bacteria has been identified from the 06/11/21 urine culture); it is samano-sensitive except to Ampicillin Tremor, chronic Plan: Obtain STAT CXR If pneumonia present, add antibiotics for aspiration PNA Cycle troponins Check D-dimer If D-dimer elevated and CXR is normal, start empiric therapeutic Lovenox and obtain CTA chest Continue iv antibx Motrin prn moderate pain Morphine iv prn severe pain CRITICAL CARE TIME SPENT: 30 min
--- NOTE | 2021-06-14 20:25 | XRAY Report ---
PROCEDURE: Chest 1 View X-Ray INDICATIONS: SOB, pleuritic chest pain TECHNIQUE: One view of the chest was acquired. COMPARISON: 07/07/2020 FINDINGS: Surgical changes and devices: Surgical clips projecting over the midline of the upper abdomen are sta ble.. Lungs and pleura: Small bilateral pleural fluid collections. Increased gaseous distention of the lung bases. Mediastinum: Mediastinal contours appear normal. Heart size is normal. Bones and chest wall: No suspicious bony lesions. Overlying soft tissues appear unremarkable. IMPRESSION: Small bilateral pleural fluid collection with bibasilar opacities which could represent atelectasis, aspiration or pneumonia. Reviewed by: Brie Blanco MD, PhD on 06/14/2021 8:24 PM PDT Approved by: Brie Blanco MD, PhD on 06/14/2021 8:24 PM PDT Station ID: [id number]
[2021-06-14] MEDS: MORPHINE 2 MG/ML CARPUJECT IVP PRN (20:26)
[2021-06-14] MEDS ORDERED: PIPERACILLIN/TAZOBACTAM 3.375 GM in SODIUM CHLORIDE 0.9% MINIBAG 100 ML IV SCH (21:00)
[2021-06-14] MEDS ORDERED: PIPERACILLIN/TAZOBACTAM 3.375 GM in SODIUM CHLORIDE 0.9% MINIBAG 100 ML IV ONE (21:00)
[2021-06-14] MEDS: guaiFENesin 600 MG TABLET PO SCH (21:27)
[2021-06-14] MEDS: IBUPROFEN 600 MG TABLET PO PRN (21:43)
[2021-06-15] MEDS ORDERED: PIPERACILLIN/TAZOBACTAM 3.375 GM in SODIUM CHLORIDE 0.9% MINIBAG 100 ML IV SCH ×2
[2021-06-15] MEDS: D5NS W/20 MEQ KCL 1,000 ML IV SCH ×2 (00:30→17:16)
[2021-06-15] MEDS: PIPERACILLIN/TAZOBACTAM 3.375 GM in SODIUM CHLORIDE 0.9% MINIBAG 100 ML IV SCH ×3 (00:31→16:11)
[2021-06-15] MEDS: MORPHINE 2 MG/ML CARPUJECT IVP PRN ×5 (00:32→22:40)
[2021-06-15] MEDS: SODIUM CHLORIDE FLUSH 0.9% 10 ML SYRINGE IVP SCH ×3 (03:27→16:27)
[2021-06-15] MEDS: IBUPROFEN 600 MG TABLET PO PRN ×2 (04:09→11:31)
[2021-06-15 06:57] LABS: BASOPHILS # (AUTO) 0.1 10^3/uL (0.0-0.1); BASOPHILS % (AUTO) 0.5 %; EOSINOPHILS # (AUTO) 0.1 10^3/uL (0.0-0.7); EOSINOPHILS % (AUTO) 1.1 %; HCT - HEMATOCRIT 23.3 % (37.0-47.0); HGB - HEMOGLOBIN 7.4 g/dL (12.0-16.0); LYMPHOCYTES % (AUTO) 8.6 %; MEAN CORPUSCULAR HEMOGLOBIN 29.4 pg (27.0-31.0); MEAN CORPUSCULAR HGB CONC 31.8 g/dL (32.0-36.0); MEAN CORPUSCULAR VOLUME 92.5 fL (81.0-99.0); MONOCYTES # (AUTO) 0.7 10^3/uL (0.0-1.0); MONOCYTES % (AUTO) 6.3 %; NEUTROPHILS # (AUTO) 9.7 10^3/uL (1.5-6.6); NEUTROPHILS % (AUTO) 82.3 %; RED BLOOD COUNT 2.52 10^6/uL (4.20-5.40); WHITE BLOOD COUNT 11.7 x10^3/uL (4.8-10.8)
[2021-06-15 06:59] LABS: SLIDE REVIEW? Indicated
[2021-06-15 07:01] LABS: CREATININE 0.8 mg/dL (0.4-1.0); POTASSIUM 4.3 mmol/L (3.5-5.0)
[2021-06-15] MEDS: BUDESONIDE 0.5 MG/2 ML NEB INH SCH ×2 (07:40→18:17)
[2021-06-15] MEDS: FORMOTEROL FUMARATE NEB 20 MCG/2 ML INH SCH ×2 (07:40→18:17)
[2021-06-15] MEDS: ALBUTEROL NEB 2.5 MG/3 ML INH PRN ×2 (07:40→18:17)
[2021-06-15 07:50] LABS: MEAN PLATELET VOLUME 9.4 fL (7.9-10.8); PLT - PLATELET COUNT 267 10^3/uL (130-450)
[2021-06-15 07:51] LABS: PLATELET ESTIMATE, MANUAL NORMAL (130-450,000) (NORMAL); PLATELET MORPHOLOGY NORMAL APPEARANCE (NORMAL); RBC MORPHOLOGY (MULTIPLE) NORMAL APPEARANCE (NORMAL); WBC MORPHOLOGY (MULTIPLE) NORMAL APPEARANCE (NORMAL)
[2021-06-15] MEDS: guaiFENesin 600 MG TABLET PO SCH ×2 (08:31→21:40)
[2021-06-15] MEDS: ENOXAPARIN 40 MG/0.4 ML SYRINGE SUBQ SCH (11:31)
--- NOTE | 2021-06-15 12:56 | PROVIDER PROGRESS NOTE ---
Subjective - Prog Note Date Prog Note Date: 06/15/21 Prog Note Time: 12:54 - Subjective Pt reports feeling: No change (Patient feels about the same. Exception is the chest pain is improved but still present. Otherwise, still complains of the same flank pain. Still complains of shortness of breath (despite no change in oxygen saturation)) Current Medications - Current Medications Current Medications: Current Medications Generic Name Dose Route Start Last Admin Trade Name Freq PRN Reason Stop Dose Admin Acetaminophen 650 mg 06/13/21 04:00 06/14/21 17:50 Acetaminophen 325 Mg Tablet PO 650 mg Q4HR PRN Administration Pain or Fever > 38C (100.4F) Albuterol 2.5 mg 06/13/21 16:22 06/15/21 07:40 Albuterol Neb 2.5 Mg/3 Ml INH 2.5 mg RTQ4H PRN Administration Wheezing Budesonide 0.5 mg 06/13/21 19:00 06/15/21 07:40 Budesonide 0.5 Mg/2 Ml Neb INH 0.5 mg RTBID RENEE Administration Calcium Carbonate/Glycine 500 mg 06/14/21 07:00 06/14/21 17:49 Calcium Carbonate Chew 500 Mg Tablet PO 500 mg BID PRN Administration Heartburn Enoxaparin Sodium 40 mg 06/15/21 11:00 06/15/21 11:31 Enoxaparin 40 Mg/0.4 Ml Syringe SUBQ 40 mg DAILY RENEE Administration Formoterol Fumarate 20 mcg 06/13/21 19:00 06/15/21 07:40 Formoterol Fumarate Neb 20 Mcg/2 Ml INH 20 mcg RTBID RENEE Administration Guaifenesin 600 mg 06/14/21 21:00 06/15/21 08:31 Guaifenesin 600 Mg Tablet PO 600 mg BID RENEE Administration Potassium Chloride/Dextrose/Sod Cl 1,000 mls @ 60 mls/hr 06/14/21 20:45 06/15/21 00:30 D5ns W/20 Meq Kcl IV 60 mls/hr .[id number] RENEE Administration Piperacillin Sod/Tazobactam 100 mls @ 25 mls/hr 06/15/21 00:00 06/15/21 08:30 Sod 3.375 gm/ Sodium Chloride IV 25 mls/hr Q8H RENEE Administration Ibuprofen 600 mg 06/14/21 19:57 06/15/21 11:31 Ibuprofen 600 Mg Tablet PO 600 mg Q6HR PRN Administration PAIN 5-7 Morphine Sulfate 2 mg 06/14/21 19:57 06/15/21 08:31 Morphine 2 Mg/Ml Carpuject IVP 2 mg Q4HR PRN Administration PAIN >8 Sodium Chloride 10 ml 06/13/21 09:00 06/15/21 08:32 Sodium Chloride Flush 0.9% 10 Ml Syringe IVP 10 ml 0100,0900,1700 RENEE Administration Objective - Vital Signs/Intake & Output Reviewed Vital Signs: Yes Vital Signs: Vital Signs x48h Temp Pulse Pulse Resp BP Pulse Ox 06/15/21 11:28 36.8 C 98 17 146/71 H 98 06/15/21 07:44 90 16 06/15/21 07:36 36.9 C 95 17 146/65 H 98 Intake & Output: Intake & Output 06/12/21 06/13/21 06/14/21 06/15/21 23:59 23:59 23:59 23:59 Intake Total 5105 2726.666 453.334 Output Total 1400 1050 100 Balance 3705 1676.666 353.334 - Objective General Appearance: positive: No acute distress Eyes Bilateral: positive: Normal inspection ENT: positive: ENT inspection nml Neck: positive: Nml inspection Respiratory: positive: No respiratory distress, Wheezes Cardiovascular: positive: Regular rate & rhythm, No murmur, No gallop Abdomen: positive: Non-tender, No organomegaly, Nml bowel sounds, No distention Back: positive: Nml inspection Skin: positive: Color nml Extremities: positive: Nml appearance Neurologic/Psychiatric: positive: Oriented x3, Other (Mild resting tremor) - Lab Results Fish Bones: 06/15/21 06:46 06/15/21 06:46 Other Labs: Lab Results x24hrs 06/15/21 06/15/21 06/14/21 Range/Units 06:46 06:46 22:30 WBC 11.7 H (4.8-10.8) x10^3/uL RBC 2.52 L (4.20-5.40) 10^6/uL Hgb 7.4 L (12.0-16.0) g/dL Hct 23.3 L (37.0-47.0) % MCV 92.5 (81.0-99.0) fL MCH 29.4 (27.0-31.0) pg MCHC 31.8 L (32.0-36.0) g/dL RDW 14.0 (12.0-15.0) % Plt Count 267 (130-450) 10^3/uL MPV 9.4 (7.9-10.8) fL Neut # (Auto) 9.7 H (1.5-6.6) 10^3/uL Lymph # (Auto) 1.0 L (1.5-3.5) 10^3/uL [place] # (Auto) 0.7 (0.0-1.0) 10^3/uL Eos # (Auto) 0.1 (0.0-0.7) 10^3/uL Baso # (Auto) 0.1 (0.0-0.1) 10^3/uL Absolute Nucleated RBC 0.00 x10^3/uL Nucleated RBC % 0.0 /100WBC Manual Slide Review Indicated WBC Morphology NORMAL APPEARANCE (NORMAL) Platelet Estimate NORMAL (130-450,000) (NORMAL) Platelet Morphology NORMAL APPEARANCE (NORMAL) RBC Morph Micro Appear NORMAL APPEARANCE (NORMAL) D-Dimer (200.0-255.0) ng/mL Sodium 138 (135-145) mmol/L Potassium 4.3 (3.5-5.0) mmol/L Chloride 112 H (101-111) mmol/L Carbon Dioxide 17 L (21-32) mmol/L Anion Gap 9.0 (6-13) BUN 8 (6-20) mg/dL Creatinine 0.8 (0.4-1.0) mg/dL Estimated GFR (MDRD) 69 L (>89) Glucose 97 (70-100) mg/dL Calcium 8.0 L (8.5-10.3) mg/dL Troponin I High Sens 20.3 H* (2.3-14.8) ng/L 06/14/21 06/14/21 Range/Units 19:59 19:59 WBC (4.8-10.8) x10^3/uL RBC (4.20-5.40) 10^6/uL Hgb (12.0-16.0) g/dL Hct (37.0-47.0) % MCV (81.0-99.0) fL MCH (27.0-31.0) pg MCHC (32.0-36.0) g/dL RDW (12.0-15.0) % Plt Count (130-450) 10^3/uL MPV (7.9-10.8) fL Neut # (Auto) (1.5-6.6) 10^3/uL Lymph # (Auto) (1.5-3.5) 10^3/uL [place] # (Auto) (0.0-1.0) 10^3/uL Eos # (Auto) (0.0-0.7) 10^3/uL Baso # (Auto) (0.0-0.1) 10^3/uL Absolute Nucleated RBC x10^3/uL Nucleated RBC % /100WBC Manual Slide Review WBC Morphology (NORMAL) Platelet Estimate (NORMAL) Platelet Morphology (NORMAL) RBC Morph Micro Appear (NORMAL) D-Dimer 770.1 H (200.0-255.0) ng/mL Sodium (135-145) mmol/L Potassium (3.5-5.0) mmol/L Chloride (101-111) mmol/L Carbon Dioxide (21-32) mmol/L Anion Gap (6-13) BUN (6-20) mg/dL Creatinine (0.4-1.0) mg/dL Estimated GFR (MDRD) (>89) Glucose (70-100) mg/dL Calcium (8.5-10.3) mg/dL Troponin I High Sens 20.4 H* (2.3-14.8) ng/L ABX Reporting Has patient been on IV antibiotics over the past 48 hours?: Yes Sepsis Event Note (H) - Evaluation Current Stage of Sepsis: Sepsis Possible source of Sepsis: positive: Genitourinary - Sepsis Criteria Sepsis Criteria: Recorded Temperature greater than 38.3C or Less than 36C, Recorded Respiratory Rate greater than 20, WBC count greater than 12,000 or less than 4000, SOLUTIONS OPERATOR: altered consciousness (unrelated to primary neuro pathology) Assessment/Plan - Problem List (1) Ureteral stent occlusion Impression: Patient with recurrent episode of ureteral stent occlusion, suspect due to lack of appropriate follow-up to remove stent. Presented with sepsis secondary to UTI as a consequence of ureteral stent Clinically responding fairly well to antibiotics and sepsis has since resolved Plan is to have interventional radiology at [facility] remove the stent. Patient will be transferred for this procedure only, then returned to [facility] to complete her course of medical treatment. Will need to follow-up with urology as an outpatient For now, continue IV Ceftriaxone (Given negative blood culture, consider transition to oral antibiotics post procedure) (2) Pleuritic chest pain Impression: Pain is improved. Imaging suggestive of possible aspiration versus atelectasis WBC 12,000 Elevated D-dimer without hypoxia Antibiotics changed by electronic equipment trades worker yesterday to IV Zosyn to cover for possible aspiration pneumonia Continue empiric antibiotics for now, pending clinical course Given elevated D-dimer, if hypoxia develops, consider CT angiogram to rule out PE (3) Acute metabolic encephalopathy Impression: Present on admission Secondary to sepsis secondary to UTI secondary to ureteral stent occlusion Improving Still has some very mild underlying confusion which may be related to chronic dementia versus alcohol withdrawal Initiated CIIL protocol as below Continue to monitor (4) Chronic iron deficiency anemia Impression: Patient with known history of iron deficiency anemia with iron labs confirming low iron on this admission H&H relatively stable No evidence of bleeding No indication for transfusion at this time Consider outpatient iron infusions (5) Complicated UTI (urinary tract infection) Impression: As above, patient presented with UTI with sepsis due to occluded ureteral stent Responding fairly well to antibiotics Continue antibiotics and follow-up post procedure with interventional radiology stent retrieval
[2021-06-16] MEDS: PIPERACILLIN/TAZOBACTAM 3.375 GM in SODIUM CHLORIDE 0.9% MINIBAG 100 ML IV SCH ×4 (00:01→23:53)
[2021-06-16] MEDS: MORPHINE 2 MG/ML CARPUJECT IVP PRN ×2 (03:25→14:53)
[2021-06-16] MEDS: SODIUM CHLORIDE FLUSH 0.9% 10 ML SYRINGE IVP SCH ×3 (03:25→16:49)
[2021-06-16 06:32] LABS: BASOPHILS % (AUTO) 0.4 %; EOSINOPHILS # (AUTO) 0.3 10^3/uL (0.0-0.7); HCT - HEMATOCRIT 22.9 % (37.0-47.0); HGB - HEMOGLOBIN 7.1 g/dL (12.0-16.0); LYMPHOCYTES % (AUTO) 9.4 %; MEAN CORPUSCULAR HEMOGLOBIN 29.3 pg (27.0-31.0); MEAN CORPUSCULAR VOLUME 94.6 fL (81.0-99.0); MEAN PLATELET VOLUME 9.1 fL (7.9-10.8); MONOCYTES # (AUTO) 0.9 10^3/uL (0.0-1.0); MONOCYTES % (AUTO) 7.9 %; NEUTROPHILS # (AUTO) 8.6 10^3/uL (1.5-6.6); PLT - PLATELET COUNT 312 10^3/uL (130-450); RED BLOOD COUNT 2.42 10^6/uL (4.20-5.40); RED CELL DISTRIBUTION WIDTH 14.2 % (12.0-15.0)
[2021-06-16] MEDS: BUDESONIDE 0.5 MG/2 ML NEB INH SCH ×2 (08:17→21:10)
[2021-06-16] MEDS: FORMOTEROL FUMARATE NEB 20 MCG/2 ML INH SCH ×2 (08:17→21:10)
[2021-06-16] MEDS: IBUPROFEN 600 MG TABLET PO PRN (08:33)
[2021-06-16] MEDS: guaiFENesin 600 MG TABLET PO SCH ×2 (08:34→21:20)
[2021-06-16] MEDS: ENOXAPARIN 40 MG/0.4 ML SYRINGE SUBQ SCH (08:34)
[2021-06-16] MEDS: D5NS W/20 MEQ KCL 1,000 ML IV SCH (10:33)
[2021-06-16] MEDS: ACETAMINOPHEN 325 MG TABLET PO PRN (10:50)
--- NOTE | 2021-06-16 12:43 | PROVIDER PROGRESS NOTE ---
Subjective - Prog Note Date Prog Note Date: 06/16/21 Prog Note Time: 12:41 - Subjective Pt reports feeling: No change Current Medications - Current Medications Current Medications: Current Medications Generic Name Dose Route Start Last Admin Trade Name Freq PRN Reason Stop Dose Admin Acetaminophen 650 mg 06/13/21 04:00 06/16/21 10:50 Acetaminophen 325 Mg Tablet PO 650 mg Q4HR PRN Administration Pain or Fever > 38C (100.4F) Albuterol 2.5 mg 06/13/21 16:22 06/15/21 18:17 Albuterol Neb 2.5 Mg/3 Ml INH 2.5 mg RTQ4H PRN Administration Wheezing Budesonide 0.5 mg 06/13/21 19:00 06/16/21 08:17 Budesonide 0.5 Mg/2 Ml Neb INH 0.5 mg RTBID RENEE Administration Calcium Carbonate/Glycine 500 mg 06/14/21 07:00 06/14/21 17:49 Calcium Carbonate Chew 500 Mg Tablet PO 500 mg BID PRN Administration Heartburn Enoxaparin Sodium 40 mg 06/15/21 11:00 06/16/21 08:34 Enoxaparin 40 Mg/0.4 Ml Syringe SUBQ 40 mg DAILY RENEE Administration Formoterol Fumarate 20 mcg 06/13/21 19:00 06/16/21 08:17 Formoterol Fumarate Neb 20 Mcg/2 Ml INH 20 mcg RTBID RENEE Administration Guaifenesin 600 mg 06/14/21 21:00 06/16/21 08:34 Guaifenesin 600 Mg Tablet PO 600 mg BID RENEE Administration Potassium Chloride/Dextrose/Sod Cl 1,000 mls @ 60 mls/hr 06/14/21 20:45 06/16/21 10:33 D5ns W/20 Meq Kcl IV 60 mls/hr .[id number] RENEE Administration Piperacillin Sod/Tazobactam 100 mls @ 25 mls/hr 06/15/21 00:00 06/16/21 09:15 Sod 3.375 gm/ Sodium Chloride IV 25 mls/hr Q8H RENEE Infusion Ibuprofen 600 mg 06/14/21 19:57 06/16/21 08:33 Ibuprofen 600 Mg Tablet PO 600 mg Q6HR PRN Administration PAIN 5-7 Morphine Sulfate 2 mg 06/14/21 19:57 06/16/21 03:25 Morphine 2 Mg/Ml Carpuject IVP 2 mg Q4HR PRN Administration PAIN >8 Sodium Chloride 10 ml 06/13/21 09:00 06/16/21 08:41 Sodium Chloride Flush 0.9% 10 Ml Syringe IVP 10 ml 0100,0900,1700 RENEE Administration Objective - Vital Signs/Intake & Output Reviewed Vital Signs: Yes Vital Signs: Vital Signs x48h Temp Pulse Resp BP BP Pulse Ox 06/16/21 12:04 36.5 C 95 20 163/66 H 97 06/16/21 07:29 36.9 C 106 H 21 161/75 H 97 Intake & Output: Intake & Output 06/13/21 06/14/21 06/15/21 06/16/21 23:59 23:59 23:59 23:59 Intake Total 5105 2726.666 2203.334 1302.917 Output Total 1400 1050 175 Balance 3705 0479.488 3712.334 1302.917 - Objective General Appearance: positive: No acute distress Eyes Bilateral: positive: Normal inspection ENT: positive: ENT inspection nml Neck: positive: Nml inspection, Thyroid nml, No JVD Respiratory: positive: Chest non-tender, No respiratory distress, Breath sounds nml Cardiovascular: positive: Regular rate & rhythm, No murmur, No gallop Abdomen: positive: Non-tender, No distention Skin: positive: Color nml Extremities: positive: Nml appearance Neurologic/Psychiatric: positive: Oriented x3, CN's nml (2-12), Other (Mild tremor) - Lab Results Fish Bones: 06/16/21 06:28 06/15/21 06:46 Other Labs: Lab Results x24hrs 06/16/21 06/16/21 Range/Units 06:28 06:28 WBC 11.0 H (4.8-10.8) x10^3/uL RBC 2.42 L (4.20-5.40) 10^6/uL Hgb 7.1 L (12.0-16.0) g/dL Hct 22.9 L (37.0-47.0) % MCV 94.6 (81.0-99.0) fL MCH 29.3 (27.0-31.0) pg MCHC 31.0 L (32.0-36.0) g/dL RDW 14.2 (12.0-15.0) % Plt Count 312 (130-450) 10^3/uL MPV 9.1 (7.9-10.8) fL Neut # (Auto) 8.6 H (1.5-6.6) 10^3/uL Lymph # (Auto) 1.0 L (1.5-3.5) 10^3/uL [place] # (Auto) 0.9 (0.0-1.0) 10^3/uL Eos # (Auto) 0.3 (0.0-0.7) 10^3/uL Baso # (Auto) 0.0 (0.0-0.1) 10^3/uL Absolute Nucleated RBC 0.00 x10^3/uL Nucleated RBC % 0.0 /100WBC D-Dimer 618.4 H (200.0-255.0) ng/mL Sepsis Event Note (H) - Evaluation Current Stage of Sepsis: Sepsis Possible source of Sepsis: positive: Genitourinary - Sepsis Criteria Sepsis Criteria: Recorded Temperature greater than 38.3C or Less than 36C, Recorded Respiratory Rate greater than 20, WBC count greater than 12,000 or less than 4000, SAMPLING THEORY TEACHER: altered consciousness (unrelated to primary neuro pathology) Assessment/Plan - Problem List (1) Ureteral stent occlusion Impression: Patient with recurrent episode of ureteral stent occlusion, suspect due to lack of appropriate follow-up to remove stent. Presented with sepsis secondary to UTI as a consequence of ureteral stent Clinically responding fairly well to antibiotics and sepsis has since resolved Plan is to have interventional radiology at [facility] remove the stent, on Sunday 06/17 Patient will be transferred for this procedure only, then returned to [facility] to complete her course of medical treatment. Will need to follow-up with urology as an outpatient (2) Abnormal chest xray Impression: Complaint of chest pain consistent with pleurodynia Jun 14, 2021. Chest x-ray inconclusive, possible aspiration. No hypoxia. Started on Zosyn on Jun 14, 2021 Afebrile with11.0 Continue IV Zosyn (3) Pleuritic chest pain Impression: Stable, Improving, but not resolved Cont PRN pain control and abx. (4) Acute metabolic encephalopathy Impression: Resolved (5) Chronic iron deficiency anemia Impression: Stable (6) Complicated UTI (urinary tract infection) Impression: Completed 3 days of IV ceftriaxone Currently on Zosyn for aspiration pneumonia Percutaneous nephrostomy drainage planned for May Recommending urology follow-up outpatient
[2021-06-16] MEDS ORDERED: oxyCODONE 5 MG TABLET PO PRN (15:36)
[2021-06-16] MEDS: LORazepam 2 MG/ML VIAL IVP PRN ×2 (16:49→22:11)
[2021-06-16] MEDS ORDERED: METOPROLOL 5 MG/5 ML VIAL IVP ONE (17:00)
[2021-06-16] MEDS: ALBUTEROL NEB 2.5 MG/3 ML INH PRN (21:10)
--- NOTE | 2021-06-16 23:17 | PROVIDER PROGRESS NOTE ---
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 Rhythm strip shows sudden onset of SVT. She had an Albuterol treatment an hour previously. Patient had rapid rate at 170 earlier today. Patient did feel palpitations then. It was treated with iv Metoprolol x1 and iv Cardizem x1. Currently pt is asleep and appears in no distress. BP 150/100, HR is now 180 in SVT Chest clear anteriorly Heart tachy Abd soft Legs w/out edema Neuro disoriented when awoken, talking about snow leopards (just had iv Ativan 1 hr ago) EKG was done (which I interpreted) after her SVT broke spontaneously, EKG shows: Sinus tachy, low voltage in precordial leads Imp: PSVT on telemetry strip, not sinus tach Klebsiella UTI Occluded R ureteral stent Hydronephrosis Disorientation from narcotics and sedatives Obtundation at admission, resolved Poss aspiration PNA Pleuritic CP, improving Her last Echo was done in 2019 and showed large atria, L to R shunt across a PFO or ASD, and normal LV and RV function Plan: Troponins were already cycled and were normal when she had 10/10 CP 2 days ago, which was found to be pleuritic pain Obtain new complete Echo in a.m. Eval for hyperthyroidism, check TSH in a.m. Continue gentle iv fluids start Cardizem po to suppress SVT Stop prn Albuterol, start prn Xopenex stop Ativan, the Morphine was already stopped earlier today CRITICAL CARE TIME SPENT: 30 min
[2021-06-16] MEDS ORDERED: diltiaZEM 30 MG TABLET PO STA (23:39)
[2021-06-17] MEDS: SODIUM CHLORIDE FLUSH 0.9% 10 ML SYRINGE IVP SCH ×3 (00:46→17:35)
[2021-06-17] MEDS: D5NS W/20 MEQ KCL 1,000 ML IV SCH ×2 (03:11→19:46)
[2021-06-17] MEDS: FORMOTEROL FUMARATE NEB 20 MCG/2 ML INH SCH ×2 (07:07→21:11)
[2021-06-17] MEDS: LEVALBUTEROL 1.25 MG/3 ML NEB INH PRN ×2 (07:07→21:10)
[2021-06-17] MEDS: BUDESONIDE 0.5 MG/2 ML NEB INH SCH ×2 (07:07→21:10)
[2021-06-17] MEDS: PIPERACILLIN/TAZOBACTAM 3.375 GM in SODIUM CHLORIDE 0.9% MINIBAG 100 ML IV SCH (08:45)
[2021-06-17] MEDS: diltiaZEM 30 MG TABLET PO SCH ×3 (08:45→21:22)
[2021-06-17] MEDS: guaiFENesin 600 MG TABLET PO SCH ×2 (09:29→21:34)
[2021-06-17] MEDS: ENOXAPARIN 40 MG/0.4 ML SYRINGE SUBQ SCH (09:29)
--- NOTE | 2021-06-17 10:21 | PROVIDER PROGRESS NOTE ---
Subjective - Prog Note Date Prog Note Date: 06/17/21 Prog Note Time: 10:18 - Subjective Pt reports feeling: No change Current Medications - Current Medications Current Medications: Current Medications Generic Name Dose Route Start Last Admin Trade Name Freq PRN Reason Stop Dose Admin Acetaminophen 650 mg 06/13/21 04:00 06/16/21 10:50 Acetaminophen 325 Mg Tablet PO 650 mg Q4HR PRN Administration Pain or Fever > 38C (100.4F) Budesonide 0.5 mg 06/13/21 19:00 06/17/21 07:07 Budesonide 0.5 Mg/2 Ml Neb INH 0.5 mg RTBID RENEE Administration Calcium Carbonate/Glycine 500 mg 06/14/21 07:00 06/14/21 17:49 Calcium Carbonate Chew 500 Mg Tablet PO 500 mg BID PRN Administration Heartburn Diltiazem HCl 30 mg 06/17/21 08:00 06/17/21 08:45 Diltiazem 30 Mg Tablet PO 30 mg 0800,1600,2200 RENEE Administration Enoxaparin Sodium 40 mg 06/15/21 11:00 06/17/21 09:29 Enoxaparin 40 Mg/0.4 Ml Syringe SUBQ 40 mg DAILY RENEE Administration Formoterol Fumarate 20 mcg 06/13/21 19:00 06/17/21 07:07 Formoterol Fumarate Neb 20 Mcg/2 Ml INH 20 mcg RTBID RENEE Administration Guaifenesin 600 mg 06/14/21 21:00 06/17/21 09:29 Guaifenesin 600 Mg Tablet PO 600 mg BID RENEE Administration Potassium Chloride/Dextrose/Sod Cl 1,000 mls @ 60 mls/hr 06/14/21 20:45 0 06/17/21 03:11 D5ns W/20 Meq Kcl IV 60 mls/hr .[id number] RENEE Administration Piperacillin Sod/Tazobactam 100 mls @ 25 mls/hr 06/15/21 00:00 06/17/21 08:45 Sod 3.375 gm/ Sodium Chloride IV 25 mls/hr Q8H RENEE Administration Ibuprofen 600 mg 06/14/21 19:57 06/16/21 08:33 Ibuprofen 600 Mg Tablet PO 600 mg Q6HR PRN Administration PAIN 5-7 Levalbuterol HCl 1.25 mg 06/16/21 23:34 06/17/21 07:07 Levalbuterol 1.25 Mg/3 Ml Neb INH 1.25 mg Q6H PRN Administration Shortness of Air/Wheezing Sodium Chloride 10 ml 06/13/21 09:00 06/17/21 09:30 Sodium Chloride Flush 0.9% 10 Ml Syringe IVP Not Given 0100,0900,1700 RENEE Objective - Vital Signs/Intake & Output Reviewed Vital Signs: Yes Vital Signs: Vital Signs x48h Temp Pulse Pulse Resp BP BP Pulse Ox 06/17/21 08:45 158/71 H 06/17/21 08:13 36.8 C 86 18 158/71 H 96 06/17/21 07:10 91 18 06/17/21 05:30 36.5 C 92 20 145/60 H 96 Intake & Output: Intake & Output 06/14/21 06/15/21 06/16/21 06/17/21 23:59 23:59 23:59 23:59 Intake Total 2726.666 2203.334 7984.133 4936 Output Total 1050 175 650 Balance 2709.071 0646.334 1970.000 448 - Objective General Appearance: positive: No acute distress Eyes Bilateral: positive: Normal inspection ENT: positive: ENT inspection nml, Pharynx nml Neck: positive: Nml inspection Respiratory: positive: Chest non-tender, No respiratory distress, Breath sounds nml Cardiovascular: positive: No murmur, No gallop, Tachycardia Abdomen: positive: Non-tender, No organomegaly, Nml bowel sounds Skin: positive: Color nml Extremities: positive: Nml appearance Neurologic/Psychiatric: positive: Oriented x3, CN's nml (2-12) - Lab Results Fish Bones: 06/16/21 06:28 06/15/21 06:46 Sepsis Event Note (H) - Evaluation Current Stage of Sepsis: Sepsis Possible source of Sepsis: positive: Genitourinary - Sepsis Criteria Sepsis Criteria: Recorded Temperature greater than 38.3C or Less than 36C, Recorded Respiratory Rate greater than 20, WBC count greater than 12,000 or less than 4000, MAINTENANCE OF WAY SUPERVISOR: altered consciousness (unrelated to primary neuro pathology) Assessment/Plan - Problem List (1) Ureteral stent occlusion Impression: Hoping to get pt transferred to [facility] today for percutaneous nephrostomy drainage. If this can be done, pt can possibly return here for post procedure observation followed by discharge home if pain is tolerable, and otherwise doing well. Will need outpt urology follow up. (2) Abnormal chest xray Impression: Question of possible aspiration pneumonia on chest x-ray over the weekend. Patient has had no fevers or leukocytosis. No oxygen requirement We will transition from IV Zosyn to p.o. Augmentin. (3) Pleuritic chest pain Impression: Likely 2/2 PNA. Improved. Cont PRN oxycodone (morpine discontinued) (4) Acute metabolic encephalopathy Impression: Resolved. (5) Chronic iron deficiency anemia Impression: H&H Stable Cont to monitor Resume Iron PO at discharge. (6) Complicated UTI (urinary tract infection) Impression: Completed 3 days of IV ceftriaxone Currently on Zosyn for aspiration pneumonia, switching to Augmentin now. Percutaneous nephrostomy drainage planned for today May if scheduling can be arranged. Recommending urology follow-up outpatient (7) SVT (supraventricular tachycardia) Impression: New diagnosis of SVT. Possibly related to albuterol use, anxiety, alcohol withdrawal, and current infection. Relatively asymptomatic. We will check an echocardiogram. Cont PO diltiazem for now. Review as outpt for continued use.
[2021-06-17 12:28] LABS: CALCIUM 8.3 mg/dL (8.5-10.3); CREATININE 0.7 mg/dL (0.4-1.0); MAGNESIUM 1.9 mg/dL (1.7-2.8); POTASSIUM 3.7 mmol/L (3.5-5.0)
[2021-06-17] MEDS: IBUPROFEN 600 MG TABLET PO PRN (19:45)
[2021-06-17] MEDS: ACETAMINOPHEN 325 MG TABLET PO PRN (19:45)
[2021-06-17] MEDS ORDERED: AMOX/CLAV 875 MG/125 MG TABLET PO SCH (21:00)
[2021-06-18] MEDS: SODIUM CHLORIDE FLUSH 0.9% 10 ML SYRINGE IVP SCH ×3 (06:29→15:59)
[2021-06-18] MEDS: IBUPROFEN 600 MG TABLET PO PRN (06:35)
[2021-06-18] MEDS: FORMOTEROL FUMARATE NEB 20 MCG/2 ML INH SCH ×2 (07:35→21:13)
[2021-06-18] MEDS: LEVALBUTEROL 1.25 MG/3 ML NEB INH PRN ×3 (07:35→21:13)
[2021-06-18] MEDS: BUDESONIDE 0.5 MG/2 ML NEB INH SCH ×2 (07:35→21:13)
[2021-06-18 08:38] LABS: BASOPHILS # (AUTO) 0.1 10^3/uL (0.0-0.1); BASOPHILS % (AUTO) 0.6 %; EOSINOPHILS # (AUTO) 0.2 10^3/uL (0.0-0.7); EOSINOPHILS % (AUTO) 1.8 %; HCT - HEMATOCRIT 28.6 % (37.0-47.0); HGB - HEMOGLOBIN 8.4 g/dL (12.0-16.0); LYMPHOCYTES # (AUTO) 1.3 10^3/uL (1.5-3.5); LYMPHOCYTES % (AUTO) 13.9 %; MEAN CORPUSCULAR HEMOGLOBIN 28.8 pg (27.0-31.0); MEAN CORPUSCULAR HGB CONC 29.4 g/dL (32.0-36.0); MEAN CORPUSCULAR VOLUME 97.9 fL (81.0-99.0); MEAN PLATELET VOLUME 9.6 fL (7.9-10.8); MONOCYTES # (AUTO) 0.6 10^3/uL (0.0-1.0); MONOCYTES % (AUTO) 7.1 %; NEUTROPHILS # (AUTO) 6.6 10^3/uL (1.5-6.6); NEUTROPHILS % (AUTO) 73.4 %; NRBC ABSOLUTE COUNT (AUTO) 0.02 x10^3/uL; NUCLEATED RED BLOOD CELLS AUTO 0.2 /100WBC; RED BLOOD COUNT 2.92 10^6/uL (4.20-5.40); RED CELL DISTRIBUTION WIDTH 14.5 % (12.0-15.0)
[2021-06-18 08:44] LABS: SLIDE REVIEW? Indicated
[2021-06-18 08:55] LABS: PLT - PLATELET COUNT 389 10^3/uL (130-450); RBC MORPHOLOGY (MULTIPLE) 3+ ANISOCYTOSIS (NORMAL)
[2021-06-18 09:00] LABS: CALCIUM 8.5 mg/dL (8.5-10.3); CREATININE 0.8 mg/dL (0.4-1.0)
[2021-06-18] MEDS ORDERED: diltiaZEM CD 180 MG CAPSULE PO SCH (09:00)
[2021-06-18] MEDS ORDERED: METOPROLOL SUCCINATE 50 MG TABLET PO SCH (09:00)
[2021-06-18] MEDS ORDERED: diltiaZEM 30 MG TABLET PO SCH (09:00)
[2021-06-18] MEDS: ENOXAPARIN 40 MG/0.4 ML SYRINGE SUBQ SCH (09:38)
[2021-06-18] MEDS: GABAPENTIN 300 MG CAPSULE PO SCH (09:39)
[2021-06-18] MEDS: buPROPion SR 100 MG TABLET PO SCH (09:39)
[2021-06-18] MEDS: CIPROFLOXACIN 250 MG TABLET PO SCH ×2 (09:39→20:13)
[2021-06-18] MEDS: LEVOTHYROXINE 25 MCG TABLET PO SCH (09:39)
[2021-06-18] MEDS: guaiFENesin 600 MG TABLET PO SCH ×2 (09:39→20:14)
[2021-06-18] MEDS ORDERED: LACTATED RINGERS 1,000 ML IV SCH (10:00)
--- NOTE | 2021-06-18 11:33 | CONSULTATION NOTE ---
Consultation Report: Call for assist with IV placement. Multiple failed attempts and history of difficult start. Attempt x6 with US. 20ga placed at R AC. Aspirates and flushes easily. Secured. Patient tolerated procedure.
[2021-06-18] MEDS ORDERED: FERROUS GLUCONATE 324 MG TABLET PO SCH (12:00)
[2021-06-18] MEDS ORDERED: GABAPENTIN 300 MG CAPSULE PO SCH ×2 (12:00→21:00)
[2021-06-18 13:22] LABS: CALCIUM 8.4 mg/dL (8.5-10.3); CREATININE 0.7 mg/dL (0.4-1.0); POTASSIUM 3.4 mmol/L (3.5-5.0)
[2021-06-18] MEDS ORDERED: POTASSIUM CHLORIDE 20 MEQ TABLET PO ONE (13:53)
[2021-06-18] MEDS ORDERED: amLODIPine 5 MG TABLET PO STA (13:54)
[2021-06-18] MEDS: PRENATAL VITAMIN TABLET PO SCH (15:59)
--- NOTE | 2021-06-18 16:34 | PROVIDER PROGRESS NOTE ---
Subjective - Prog Note Date Prog Note Date: 06/18/21 - Subjective Subjective: She feels improved compared to yesterday. Still has some pain in the right flank but this is improved. Denies fevers or chills. She is looking forward to going home. Current Medications - Current Medications Current Medications: Active Medications Acetaminophen (Acetaminophen 325 Mg Tablet) 650 mg PO Q4HR PRN PRN Reason: Pain or Fever > 38C (100.4F) Last Admin: 06/17/21 19:45 Dose: 650 mg Documented by: Amitriptyline HCl (Amitriptyline 25 Mg Tablet) 150 mg PO QPM [facility] Budesonide (Budesonide 0.5 Mg/2 Ml Neb) 0.5 mg INH RTBID [facility] Last Admin: 06/18/21 07:35 Dose: 0.5 mg Documented by: Bupropion HCl (Bupropion Sr 100 Mg Tablet) 100 mg PO DAILY [facility] Last Admin: 06/18/21 09:39 Dose: 100 mg Documented by: Calcium Carbonate/Glycine (Calcium Carbonate Chew 500 Mg Tablet) 500 mg PO BID PRN PRN Reason: Heartburn Last Admin: 06/14/21 17:49 Dose: 500 mg Documented by: Ciprofloxacin (Ciprofloxacin 250 Mg Tablet) 500 mg PO BID [facility] Last Admin: 06/18/21 09:39 Dose: 500 mg Documented by: Enoxaparin Sodium (Enoxaparin 40 Mg/0.4 Ml Syringe) 40 mg SUBQ DAILY [facility] Last Admin: 06/18/21 09:38 Dose: 40 mg Documented by: Ferrous Gluconate (Ferrous Gluconate 324 Mg Tablet) 324 mg PO QDLUNCH [facility] Last Admin: 06/18/21 12:14 Dose: 324 mg Documented by: Formoterol Fumarate (Formoterol Fumarate Neb 20 Mcg/2 Ml) 20 mcg INH RTBID [facility] Last Admin: 06/18/21 07:35 Dose: 20 mcg Documented by: Gabapentin (Gabapentin 300 Mg Capsule) 300 mg PO DAILY [facility] Last Admin: 06/18/21 09:39 Dose: 300 mg Documented by: Gabapentin (Gabapentin 300 Mg Capsule) 300 mg PO 1200 [facility] Last Admin: 06/18/21 12:14 Dose: 300 mg Documented by: Gabapentin (Gabapentin 300 Mg Capsule) 600 mg PO QPM [facility] Guaifenesin (Guaifenesin 600 Mg Tablet) 600 mg PO BID [facility] Last Admin: 06/18/21 09:39 Dose: 600 mg Documented by: Lactated Ringer's (Lr) 1,000 mls @ 100 mls/hr IV .Q10H [facility] Stop: 06/18/21 19:59 Last Admin: 06/18/21 09:41 Dose: Not Given Documented by: Ibuprofen (Ibuprofen 600 Mg Tablet) 600 mg PO Q6HR PRN PRN Reason: PAIN 5-7 Last Admin: 06/18/21 06:35 Dose: 600 mg Documented by: Levalbuterol HCl (Levalbuterol 1.25 Mg/3 Ml Neb) 1.25 mg INH Q6H PRN PRN Reason: Shortness of Air/Wheezing Last Admin: 06/18/21 13:55 Dose: 1.25 mg Documented by: Levothyroxine Sodium (Levothyroxine 25 Mcg Tablet) 50 mcg PO QDAC [facility] Last Admin: 06/18/21 09:39 Dose: 50 mcg Documented by: Metoprolol Succinate (Metoprolol Succinate 50 Mg Tablet) 50 mg PO DAILY [facility] Last Admin: 06/18/21 09:40 Dose: 50 mg Documented by: Montelukast Sodium (Montelukast 10 Mg Tablet) 10 mg PO QPM [facility] Ondansetron HCl (Ondansetron 4 Mg/2 Ml Vial) 4 mg IVP Q6HR PRN PRN Reason: Nausea / Vomiting Oxycodone HCl (Oxycodone 5 Mg Tablet) 5 mg PO Q4HR PRN PRN Reason: PAIN Pantoprazole Sodium (Pantoprazole 40 Mg Tablet) 40 mg PO QDAC [facility] Multivit/Folic Acid/Iron ( Vitamin Tablet) 1 tab PO DAILYWM [facility] Last Admin: 06/18/21 15:59 Dose: 1 tab Documented by: Sodium Chloride (Sodium Chloride Flush 0.9% 10 Ml Syringe) 10 ml IVP PRN PRN PRN Reason: NEEDED PER PROVIDER ORDERS Sodium Chloride (Sodium Chloride Flush 0.9% 10 Ml Syringe) 10 ml IVP 0100,0900,1700 [facility] Last Admin: 06/18/21 15:59 Dose: 10 ml Documented by: Thiamine HCl (Thiamine 100 Mg Tablet) 100 mg PO DAILY [facility] Docusate Sodium [Stool Softener] 100 mg PO DAILY PRN 12/15/14 Estrogens, Conjugated [Premarin] 0.3 mg PO DAILY 12/15/14 Metoclopramide [Reglan] 10 mg PO TID 12/15/14 Multivitamin [Multivitamins] 1 each PO DAILY 12/15/14 RX: Amitriptyline HCl 150 mg PO QPM 12/15/14 RX: Gabapentin 300 mg PO DAILY 12/15/14 RX: Montelukast Sodium 10 mg PO QPM 12/15/14 RX: Omeprazole 20 mg PO DAILY 12/15/14 Fluticasone/Salmeterol [Advair 250-50 Diskus] 1 each IH BID 07/24/16 RX: Levothyroxine Sodium 50 mcg PO DAILY 07/24/16 RX: buPROPion [Wellbutrin Sr] 100 mg PO DAILY 07/24/16 Albuterol Sulfate [Albuterol Sulfate Hfa] 2 puffs IH Q4H PRN 07/06/20 Furosemide [Lasix] 60 mg PO DAILY PRN 07/06/20 Hydrocodone/Acetaminophen [Hydrocodon-Acetaminophen 5-325] 5 - 325 mg PO Q6H PRN 07/06/20 RX: Ferrous Gluconate 324 mg PO DAILY 06/13/21 RX: Gabapentin [Neurontin] 300 mg PO 1200 06/13/21 RX: Gabapentin [Neurontin] 600 mg PO QPM 06/13/21 RX: Metoprolol Succinate [Toprol Xl] 50 mg PO DAILY 06/13/21 RX: Oxybutynin Chloride [Ditropan Xl] 30 mg PO DAILY 06/13/21 RX: Sucralfate [Carafate] 1 gm PO TIDWM 06/13/21 methocarbamoL [Methocarbamol] 750 mg PO TID 06/13/21 Objective - Vital Signs/Intake & Output Reviewed Vital Signs: Yes Vital Signs: Vital Signs x48h Temp Pulse Pulse Resp BP Pulse Ox 06/18/21 13:55 83 18 06/18/21 13:00 37.0 C 83 16 175/83 H 98 06/18/21 11:30 92 18 06/18/21 08:35 36.8 C 84 14 151/82 H 99 Intake & Output: Intake & Output 06/15/21 06/16/21 06/17/21 06/18/21 23:59 23:59 23:59 23:59 Intake Total 2203.334 2851.978 3038 125 Output Total 175 690 200 Balance 2027.19698538.453 2194 -75 - Objective General Appearance: positive: No acute distress, Alert Eyes Bilateral: positive: Normal inspection, Conjunctivae nml ENT: positive: ENT inspection nml Neck: positive: Nml inspection Respiratory: positive: No respiratory distress. negative: Wheezes, Rales Cardiovascular: positive: Regular rate & rhythm. negative: Tachycardia Abdomen: positive: Non-tender, No distention. negative: Tenderness Back: positive: Other (Nephrostomy tube in place over right flank.) Skin: positive: Warm, Dry Extremities: positive: No pedal edema Neurologic/Psychiatric: positive: Other (Her speech is delayed at times but she is oriented to self, location and month. No focal deficits.). negative: Disoriented to person, Disoriented to place - Lab Results Fish Bones: 06/18/21 08:28 06/18/21 13:05 Other Labs: Lab Results x24hrs 06/18/21 06/18/21 06/18/21 Range/Units 13:05 08:28 08:28 WBC 9.0 (4.8-10.8) x10^3/uL RBC 2.92 L (4.20-5.40) 10^6/uL Hgb 8.4 L (12.0-16.0) g/dL Hct 28.6 L (37.0-47.0) % MCV 97.9 (81.0-99.0) fL MCH 28.8 (27.0-31.0) pg MCHC 29.4 L (32.0-36.0) g/dL RDW 14.5 (12.0-15.0) % Plt Count 389 (130-450) 10^3/uL MPV 9.6 (7.9-10.8) fL Neut # (Auto) 6.6 (1.5-6.6) 10^3/uL Lymph # (Auto) 1.3 L (1.5-3.5) 10^3/uL Dyer # (Auto) 0.6 (0.0-1.0) 10^3/uL Eos # (Auto) 0.2 (0.0-0.7) 10^3/uL Baso # (Auto) 0.1 (0.0-0.1) 10^3/uL Absolute Nucleated RBC 0.02 x10^3/uL Nucleated RBC % 0.2 /100WBC Manual Slide Review Indicated RBC Morph Micro Appear 3+ ANISOCYTOSIS (NORMAL) Sodium 139 140 (135-145) mmol/L Potassium 3.4 L 4.0 (3.5-5.0) mmol/L Chloride 111 112 H (101-111) mmol/L Carbon Dioxide 18 L 15 L (21-32) mmol/L Anion Gap 10.0 13.0 (6-13) BUN 8 8 (6-20) mg/dL Creatinine 0.7 0.8 (0.4-1.0) mg/dL Estimated GFR (MDRD) 81 L 69 L (>89) Glucose 107 H 88 (70-100) mg/dL Calcium 8.4 L 8.5 (8.5-10.3) mg/dL ABX Reporting Has patient been on IV antibiotics over the past 48 hours?: Yes Sepsis Event Note (H) - Evaluation Current Stage of Sepsis: Resolved Possible source of Sepsis: positive: Genitourinary - Sepsis Criteria Sepsis Criteria: Recorded Temperature greater than 38.3C or Less than 36C, Recorded Respiratory Rate greater than 20, WBC count greater than 12,000 or less than 4000, DITCH INSPECTOR: altered consciousness (unrelated to primary neuro pathology) Assessment/Plan - Problem List (1) Complicated UTI (urinary tract infection) Impression: She is now status post nephrostomy tube placement. We have placed her on oral ciprofloxacin today and if she continues to do well we will plan to discharge her home tomorrow morning. She will complete another 7 days of ciprofloxacin. (2) Ureteral stent occlusion Impression: Likely contributing to the urinary tract infection. She is now status post nephrostomy tube placement. She will complete the 1 week of ciprofloxacin and I discussed with her and her today that she will need outpatient follow- up with her urologist for further evaluation of this stent occlusion. Her jony will be making an appointment for her for later this week or early next week. (3) Metabolic acidosis Impression: Her bicarbonate is decreased this morning at 15 which is likely secondary to the saline load she received for the sepsis. Although this is improved before we discharge her to ensure it is heading in the right direction. We will start her on lactated Ringer's today and recheck labs this afternoon. If improving she can likely be discharged tomorrow morning. (4) Abnormal chest xray Impression: There was concern for aspiration pneumonia on the chest x-ray over the weekend. She treated with IV Zosyn and switched to p.o. Augmentin. Given there is no evidence of further infection from a pneumonia standpoint and she was never hypoxic, we will discontinue Augmentin and keep her on ciprofloxacin alone for the urinary tract infection. (5) Chronic iron deficiency anemia Impression: Hemoglobin is improved today to greater than 8. She likely has chronic iron deficiency anemia we will continue her on oral iron. (6) SVT (supraventricular tachycardia) Impression: She has been rate controlled since her brief episode of SVT. I have discontinued the diltiazem today and resumed her home dose of oral metoprolol. (7) Sepsis Impression: This was secondary to urinary tract infection and has since resolved. (8) Acute metabolic encephalopathy Impression: This is now resolved. She appears back to her baseline mental status. This is likely related to her sepsis and infection.
[2021-06-18] MEDS ORDERED: METOPROLOL 5 MG/5 ML VIAL IVP STA (18:30)
[2021-06-18] MEDS: ACETAMINOPHEN 325 MG TABLET PO PRN (20:14)
[2021-06-18] MEDS ORDERED: METOPROLOL TARTRATE 50 MG TABLET PO ONE (21:00)
[2021-06-18] MEDS ORDERED: AMITRIPTYLINE 25 MG TABLET PO SCH (21:00)
[2021-06-18] MEDS ORDERED: MONTELUKAST 10 MG TABLET PO SCH (21:00)
[2021-06-19] MEDS: SODIUM CHLORIDE FLUSH 0.9% 10 ML SYRINGE IVP SCH ×2 (02:39→09:11)
[2021-06-19] MEDS: ACETAMINOPHEN 325 MG TABLET PO PRN (06:10)
[2021-06-19] MEDS: LEVOTHYROXINE 25 MCG TABLET PO SCH (06:10)
[2021-06-19] MEDS ORDERED: PANTOPRAZOLE 40 MG TABLET PO SCH (07:00)
[2021-06-19] MEDS: FORMOTEROL FUMARATE NEB 20 MCG/2 ML INH SCH (07:26)
[2021-06-19] MEDS: BUDESONIDE 0.5 MG/2 ML NEB INH SCH (07:26)
--- NOTE | 2021-06-19 07:37 | Discharge Plan ---
Discharge Plan Problem Reviewed?: Yes Disposition: Home, Self Care Condition: Stable Prescriptions: Ciprofloxacin [Cipro] 500 mg PO BID 6 Days #24 tablet Saccharomyces Boulardii [Florastor] 250 mg PO BIDWM 6 Days #12 cap Metoprolol Succinate [Toprol Xl] 100 mg PO DAILY 30 Days #60 tablet Diet: Regular Activity Restrictions: Activity as Tolerated Instruction Topics: Saccharomyces boulardii Florastor oral dosage forms, Ciprofloxacin tablets, Metoprolol extended-release tablets, Nephrostomy Percutaneous Dc Health Concerns: You were admitted to the hospital because of a urinary tract infection. It was found that the stent you previously had in your right kidney appeared to be malfunctioning which caused a backup of urine in the kidney. This likely led to the infection. We needed to send you to [facility] to have the radiologist place a nephrostomy tube which is a tube that goes into your kidney to help drain the infected urine. You have remained on antibiotics and have since improved. You are now stable for discharge. Plan of Treatment: Please take the ciprofloxacin twice daily for 6 more days to complete the antibiotic treatment for your urinary infection. I have increased the home dose of your metoprolol to 100 mg daily as your heart rate has been elevated here. A new prescription was sent to your pharmacy. You may take 2 tablets of your 50 mg daily for the time being. It will be important that you follow-up with your urologist for further evaluation given you have a history of stenting in your right ureter and this will need to be evaluated given the infection and the need for a nephrostomy tube which was placed. Please continue take your iron supplementation as you are blood counts are low and you are iron deficient. Nephrostomy tube care: You will flush the drain with 510cc of sterile saline daily as instructed. Flushing the drain will help keep the tube functioning properly. Turn the three-way stopcock off to the drainage bag. Clean the flushing port with alcohol and attach the flush syringe. Gently inject the flush. Turn the stopcock off to the flushing port and open to the bag. It will also be important to change the dressing and clean around the tube every two to three days. You may shower with the drain, but you must change the dressing immediately after showering to keep the dressing clean and dry. Any time the dressing becomes wet or soiled, you will need to change it. Remove the dressing and clean around the tube with sterile saline using a cotton ball or Q tip. If there is any crusty drainage around the tube, you may clean it with a small amount of hydrogen peroxide. A mixture of half hydrogen peroxide and saline or water is recommended. Dry the site after cleaning. Place a clean gauze pad over the tube site and secure it with tape. Care Goals: The goal to treat the underlying infection and to prevent further infections from occurring. Assessment: The patient and family expressed understanding of the treatment plan. Additional Instructions or Follow Up instructions: Please follow-up with Dr. Kirby on June 21 at 2 PM. Please follow-up with urology on July 04 at 8:55 AM. This will be at [facility] in [place]. It is recommended that you have blood work obtained in a few days with Dr. Kirby to ensure that your blood counts are stable. No Smoking: If you smoke, Please STOP! Call for help. Follow-up with: Levon Kirby DO [Primary Care Provider] -
[2021-06-19 07:41] LABS: BASOPHILS # (AUTO) 0.1 10^3/uL (0.0-0.1); BASOPHILS % (AUTO) 0.7 %; EOSINOPHILS # (AUTO) 0.3 10^3/uL (0.0-0.7); EOSINOPHILS % (AUTO) 2.9 %; HCT - HEMATOCRIT 23.9 % (37.0-47.0); HGB - HEMOGLOBIN 7.5 g/dL (12.0-16.0); LYMPHOCYTES # (AUTO) 1.1 10^3/uL (1.5-3.5); LYMPHOCYTES % (AUTO) 13.2 %; MEAN CORPUSCULAR HEMOGLOBIN 29.6 pg (27.0-31.0); MEAN CORPUSCULAR HGB CONC 31.4 g/dL (32.0-36.0); MEAN CORPUSCULAR VOLUME 94.5 fL (81.0-99.0); MEAN PLATELET VOLUME 8.4 fL (7.9-10.8); MONOCYTES # (AUTO) 0.8 10^3/uL (0.0-1.0); NEUTROPHILS # (AUTO) 6.2 10^3/uL (1.5-6.6); PLT - PLATELET COUNT 464 10^3/uL (130-450); RED BLOOD COUNT 2.53 10^6/uL (4.20-5.40); RED CELL DISTRIBUTION WIDTH 14.5 % (12.0-15.0); WHITE BLOOD COUNT 8.6 x10^3/uL (4.8-10.8)
[2021-06-19 07:50] LABS: CALCIUM 8.2 mg/dL (8.5-10.3); CREATININE 0.7 mg/dL (0.4-1.0); POTASSIUM 3.7 mmol/L (3.5-5.0)
--- NOTE | 2021-06-19 08:45 | DISCHARGE SUMMARY ---
Discharge Summary Admit Date: 06/13/21 Discharge Date: 06/19/21 Discharging Provider: Joe Loyola Primary Care Provider: Levon Kirby Code Status: Attempt Resuscitation Condition at Discharge: Stable Discharge Disposition: 01 Home, Self Care - DIAGNOSES Admission Diagnoses: Sepsis Complicated UTI Altered mental status Hypokalemia Prerenal azotemia Anemia Depression with anxiety History of asthma Discharge Diagnoses with Status of Each Condition: Sepsis - resolved. Complicated UTI - improved. Ureteral stent occlusion - ongoing. Metabolic acidosis - improved. Thrombocytosis - stable Abnormal chest x-ray - resolved. Chronic iron deficiency anemia - stable. Paroxysmal SVT - stable. Sepsis - resolved - HPI History of Present Illness: H&P per Dr. López: This is a 76-year-old white female with a history of depression and anxiety, asthma, runs a soft blood pressure chronically, who was admitted here 1 year ago with E. coli UTI and bacteremia (the E coli was samano-sensitive). She was found to have obstructive uropathy and was transferred to [facility] for placement of a stent. The patient presented to the ER yesterday with similar symptoms as 1 year ago: She had developed weakness, dysuria and was found to have an elevated WBC of 21 and a UTI on urinalysis. A CT scan in the ED yesterday showed right-sided hydronephrosis with a ureteral stent that was read as "malfunctioning". Yesterday's ED provider, Dr. Coburn spoke to the Urologist on-call at [facility], Dr. Meng, who advised that she could be sent home on antibiotics and keep her already scheduled appointment with Dr. Mulligan in 3 days for stent removal. She was discharged on Cephalexin. Apparently as she was leaving the ED yesterday, the patient had a fall out of her wheelchair when she was being discharged from the emergency department and struck the back of her head on the left side. Over the next 24 hours she got more obtunded and her brought her to the ED today. Here she is somnolent, does not follow commands, and awakens slightly to a sternal rub, compared to yesterday when she was weak but alert and oriented. A head CT was done today that showed no acute findings but volume loss and aging changes were present. Her WBC has improved from 21 to 13, but the urinalysis still shows bacteria. She had a fever at the scene per report. She is being admitted to Inpatient status for sepsis from a complex UTI with hydronephrosis, failed outpatient antibiotics, and new altered mental status (she is obtunded and only arousable to strong stimuli.) The ED provider, Dr. Sapp, has reached out to [facility] and requested she be transferred there since the ureteral stent removal is planned this Thursday, however they have no open beds, thus the patient is in a queue. - CONSULTS | PROCEDURES Consultations: Interventional radiology at [facility]. Procedures: Right nephrostomy tube was placed June 17 at [facility] in [place]. - HOSPITAL COURSE Hospital Course: She was admitted for sepsis secondary to a urinary tract infection. CT revealed right hydronephrosis and a likely malfunctioning stent. She was started on IV ceftriaxone empirically. Urine culture came back positive for Klebsiella which was pansensitive except for ampicillin. There was concern during his hospitalization that she also developed aspiration pneumonia and so the antibiotics were switched to Zosyn IV. Her blood cultures remained negative to date. Given the urinary infection and concern for malfunctioning stent with hydronephrosis, a decision was made to transfer the patient to [facility] for a nephrostomy tube. She was transferred for just the procedure and returned to our facility the same day. This procedure was performed June 17. She was monitored 24 hours after this with resolution of her white count and she remained clinically stable. She was switched to oral ciprofloxacin for the UTI and was prescribed 6 more days to complete treatment. She will be following up with her primary care provider in 2 days and with urology in 15 days. During this hospitalization, she also had paroxysmal SVT. We have increased her home dose of metoprolol to 100 mg daily from 50 mg daily she has been tolerating this well. She will be discharged on the higher dose. She has also been anemic throughout this stay and never required a blood transfusion. She was continued on her oral iron supplementation. It was noted on day of discharge her platelet count had increased to over 450. I have recommended that she obtain a CBC with her primary care physician in a few days to monitor her hemoglobin and platelet count. - ALLERGIES Allergies/Adverse Reactions: Allergies Allergy/AdvReac Type Severity Reaction Status Date / Time latex AdvReac Severe Rash Verified 06/13/21 00:38 - MEDICATIONS Home Medications: Ambulatory Orders Medication Instructions Recorded Confirmed Amitriptyline HCl 150 mg PO QPM 12/15/14 06/13/21 Docusate Sodium [Stool Softener] 100 mg PO DAILY PRN 12/15/14 06/13/21 Estrogens, Conjugated [Premarin] 0.3 mg PO DAILY 12/15/14 06/13/21 Gabapentin 300 mg PO DAILY 12/15/14 06/13/21 Metoclopramide [Reglan] 10 mg PO TID 12/15/14 06/13/21 Montelukast Sodium 10 mg PO QPM 12/15/14 06/13/21 Multivitamin [Multivitamins] 1 each PO DAILY 12/15/14 06/13/21 Omeprazole 20 mg PO DAILY 12/15/14 06/13/21 Fluticasone/Salmeterol [Advair 1 each IH BID 07/24/16 06/13/21 250-50 Diskus] Levothyroxine Sodium 50 mcg PO DAILY 07/24/16 06/13/21 buPROPion [Wellbutrin Sr] 100 mg PO DAILY 07/24/16 06/13/21 Albuterol Sulfate [Albuterol 2 puffs IH Q4H PRN 07/06/20 06/13/21 Sulfate Hfa] Furosemide [Lasix] 60 mg PO DAILY PRN 07/06/20 06/13/21 Hydrocodone/Acetaminophen 5 - 325 mg PO Q6H PRN 07/06/20 06/13/21 [Hydrocodone-Acetamin 5-325 mg] Ferrous Gluconate 324 mg PO DAILY 06/13/21 06/13/21 Gabapentin [Neurontin] 300 mg PO 1200 06/13/21 06/13/21 Gabapentin [Neurontin] 600 mg PO QPM 06/13/21 06/13/21 Oxybutynin Chloride [Ditropan Xl] 30 mg PO DAILY 06/13/21 06/13/21 Sucralfate [Carafate] 1 gm PO TIDWM 06/13/21 06/13/21 methocarbamoL [Methocarbamol] 750 mg PO TID 06/13/21 06/13/21 Ciprofloxacin [Cipro] 500 mg PO BID 6 Days #24 tablet 06/19/21 Metoprolol Succinate [Toprol Xl] 100 mg PO DAILY 30 Days #60 tablet 06/19/21 Robson Smith [Florastor] 250 mg PO BIDWM 6 Days #12 cap 06/19/21 - PHYSICAL EXAM AT DISCHARGE General Appearance: positive: No acute distress, Alert Eyes Bilateral: positive: Normal inspection, Conjunctivae nml ENT: positive: ENT inspection nml Neck: positive: Nml inspection Respiratory: positive: No respiratory distress. negative: Wheezes, Rales Cardiovascular: positive: Regular rate & rhythm. negative: Tachycardia, Systolic murmur Abdomen: positive: Non-tender, No distention. negative: Tenderness Back: positive: Other (Minimal right CVA tenderness. Nephrostomy tube in place.) Skin: positive: Warm, Dry Extremities: positive: No pedal edema Neurologic/Psychiatric: positive: Oriented x3, Other (No focal deficits.). negative: Disoriented to person, Disoriented to place, Disoriented to time Physical Exam Other/Comments: Vital Signs - 24 hr 06/18/21 06/18/21 06/18/21 18:30 18:35 18:38 Temperature Heart Rate Heart Rate [ 128 H Brachial] Heart Rate [ 130 H Monitoring electrodes] Respiratory Rate Blood Pressure 133/87 H Blood Pressure 133/87 H 139/83 H [Left Brachial artery] Blood Pressure [Right Brachial artery] O2 Saturation 06/18/21 06/18/21 06/18/21 18:40 18:45 18:50 Temperature Heart Rate Heart Rate [ Brachial] Heart Rate [ 129 H 128 H 128 H Monitoring electrodes] Respiratory Rate Blood Pressure Blood Pressure 141/75 H 138/89 H 148/87 H [Left Brachial artery] Blood Pressure [Right Brachial artery] O2 Saturation 06/18/21 06/18/21 06/18/21 19:00 19:20 19:37 Temperature 37.0 C Heart Rate Heart Rate [ Brachial] Heart Rate [ 127 H 74 Monitoring electrodes] Respiratory 16 Rate Blood Pressure Blood Pressure 150/87 H 162/67 H 164/63 H [Left Brachial artery] Blood Pressure [Right Brachial artery] O2 Saturation 97 06/18/21 06/18/21 06/19/21 20:13 21:14 00:50 Temperature 36.8 C Heart Rate 75 Heart Rate [ 66 Brachial] Heart Rate [ Monitoring electrodes] Respiratory 20 16 Rate Blood Pressure 164/63 H Blood Pressure 148/62 H [Left Brachial artery] Blood Pressure [Right Brachial artery] O2 Saturation 97 06/19/21 06/19/21 06/19/21 05:25 07:26 08:47 Temperature 36.9 C 36.8 C Heart Rate 75 Heart Rate [ 71 Brachial] Heart Rate [ 65 Monitoring electrodes] Respiratory 14 16 14 Rate Blood Pressure Blood Pressure 133/55 H [Left Brachial artery] Blood Pressure 143/59 H [Right Brachial artery] O2 Saturation 97 98 Oxygen O2 Source Room air - LABS Result Diagrams: 06/19/21 07:32 06/19/21 07:32 - DIAGNOSTIC IMAGING Diagnostic Imaging Results: Final report reviewed - SEPSIS Current Stage of Sepsis: Resolved Possible source of Sepsis: Genitourinary Sepsis Criteria: Recorded Temperature greater than 38.3C or Less than 36C, Recorded Respiratory Rate greater than 20, WBC count greater than 12,000 or less than 4000, SPUD GRADER: altered consciousness (unrelated to primary neuro pathology) - FOLLOW UP Follow Up: She will be following up with her primary care physician on June 21 at 2 PM. She is appointment with urology on July 04 at 8:55 AM. I would like to ask her primary care physician to recheck a CBC in a few days to ensure her hemoglobin is stable and that her platelet count is not increasing. - TIME SPENT Time Spent in Discharge (Minutes): 34
[2021-06-19 08:49] VITALS: BP 133/55
[2021-06-19] MEDS ORDERED: METOPROLOL SUCCINATE 50 MG TABLET PO SCH (09:00)
[2021-06-19] MEDS ORDERED: THIAMINE 100 MG TABLET PO SCH (09:00)
[2021-06-19] MEDS: ENOXAPARIN 40 MG/0.4 ML SYRINGE SUBQ SCH (09:09)
[2021-06-19] MEDS: GABAPENTIN 300 MG CAPSULE PO SCH (09:10)
[2021-06-19] MEDS: PRENATAL VITAMIN TABLET PO SCH (09:10)
[2021-06-19] MEDS: guaiFENesin 600 MG TABLET PO SCH (09:10)
[2021-06-19] MEDS: buPROPion SR 100 MG TABLET PO SCH (09:10)
[2021-06-19] MEDS: CIPROFLOXACIN 250 MG TABLET PO SCH (09:11)
== END 2021-06-19 12:00 | disposition home or self-care (01) | DRG 871 ==
LOC: EDBD → EDUNIT# → ED 00:32 → MS2 04:04
PROVIDERS: ADMIT Internal Medicine; ATTEND Internal Medicine
PROC: 0T9330Z Drainage of Right Kidney Pelvis with Drainage Device, Percutaneous Approach (ICD-10-PCS; principal; 2021-06-17)
DX: A41.9 Sepsis, unspecified organism (principal); N30.01 Acute cystitis with hematuria; J69.0 Pneumonitis due to inhalation of food and vomit; G93.41 Metabolic encephalopathy; I47.1 Supraventricular tachycardia; N13.6 Pyonephrosis; R53.1 Weakness; Z99.3 Dependence on wheelchair; R51.9 Headache, unspecified; I10 Essential (primary) hypertension; E87.2 Acidosis; T83.192A Other mechanical complication of indwelling ureteral stent, initial encounter; Z20.822 Contact with and (suspected) exposure to COVID-19; R40.4 Transient alteration of awareness; R65.20 Severe sepsis without septic shock; E86.0 Dehydration; R41.82 Altered mental status, unspecified; B96.1 Klebsiella pneumoniae [K. pneumoniae] as the cause of diseases classified elsewhere; D47.3 Essential (hemorrhagic) thrombocythemia; D50.9 Iron deficiency anemia, unspecified; S09.90XA Unspecified injury of head, initial encounter; W05.0XXA Fall from non-moving wheelchair, initial encounter; Y92.538 Other ambulatory health services establishments as the place of occurrence of the external cause; Z87.891 Personal history of nicotine dependence; E87.6 Hypokalemia; R79.89 Other specified abnormal findings of blood chemistry; F41.8 Other specified anxiety disorders; J45.909 Unspecified asthma, uncomplicated; R07.81 Pleurodynia
CPT/HCPCS: 36415; 70450; 71045; 80048; 80053; 81001; 82607; 82746; 83540; 83605; 83735; 84443; 84466; 84484; 85025; 85379; 85610; 87040; 87086; 87631; 93005; 93306; 94640; 96361; 96365; 99284; 99285; A9270; J1650; J2060; J7626; 0202U; 85027

== ENCOUNTER 2021-07-29 16:59 | Emergency (ER) | payer MEDICARE, OTHER ==
--- NOTE | 2021-07-29 17:35 | ED Physician Documentation ---
PD HPI SKIN - Stated complaint Stated Complaint: NEPHROSTOMY TUBE DISCHARGE - Chief complaint Chief Complaint: Wound - History obtained from History obtained from: Patient - Additional information Additional information: 76-year-old woman who was had a right sided nephrostomy placed about a month ago d/t problems with a kidney stone presents with redness and drainage around the nephrostomy that is been going on for about 3 days not associated with fevers. She called her urologist who sent her here for evaluation. Urology and nephrostomy care has previously been at [facility]. Review of Systems Constitutional: denies: Fever, Chills Eyes: reports: Reviewed and negative Ears: reports: Reviewed and negative Nose: reports: Reviewed and negative Throat: reports: Reviewed and negative PD PAST MEDICAL HISTORY - Past Medical History Cardiovascular: Hypertension Respiratory: Asthma Endocrine/Autoimmune: HyPERthyroidism GI: None PIZZA DRIVER: Other ([id number]. I child was stillborn at . ) : None HEENT: None Psych: Depression Musculoskeletal: Osteoarthritis Derm: None - Past Surgical History Past Surgical History: Yes General: Cholecystectomy, Appendectomy, Bowel surgery Ortho: Rotator cuff repair ( 12/2014 but left shoulder also w tear.) /PIZZA DRIVER: Hysterectomy HEENT: Cataracts (surgery 10/2015) - Present Medications Home Medications: Ambulatory Orders Medication Instructions Recorded Confirmed Amitriptyline HCl 150 mg PO QPM 12/15/14 06/13/21 Docusate Sodium [Stool Softener] 100 mg PO DAILY PRN 12/15/14 06/13/21 Estrogens, Conjugated [Premarin] 0.3 mg PO DAILY 12/15/14 06/13/21 Gabapentin 300 mg PO DAILY 12/15/14 06/13/21 Metoclopramide [Reglan] 10 mg PO TID 12/15/14 06/13/21 Montelukast Sodium 10 mg PO QPM 12/15/14 06/13/21 Multivitamin [Multivitamins] 1 each PO DAILY 12/15/14 06/13/21 Omeprazole 20 mg PO DAILY 12/15/14 06/13/21 Fluticasone/Salmeterol [Advair 1 each IH BID 07/24/16 06/13/21 250-50 Diskus] Levothyroxine Sodium 50 mcg PO DAILY 07/24/16 06/13/21 buPROPion [Wellbutrin Sr] 100 mg PO DAILY 07/24/16 06/13/21 Albuterol Sulfate [Albuterol 2 puffs IH Q4H PRN 07/06/20 06/13/21 Sulfate Hfa] Furosemide [Lasix] 60 mg PO DAILY PRN 07/06/20 06/13/21 Hydrocodone/Acetaminophen 5 - 325 mg PO Q6H PRN 07/06/20 06/13/21 [Hydrocodone-Acetamin 5-325 mg] Ferrous Gluconate 324 mg PO DAILY 06/13/21 06/13/21 Gabapentin [Neurontin] 300 mg PO 1200 06/13/21 06/13/21 Gabapentin [Neurontin] 600 mg PO QPM 06/13/21 06/13/21 Oxybutynin Chloride [Ditropan Xl] 30 mg PO DAILY 06/13/21 06/13/21 Sucralfate [Carafate] 1 gm PO TIDWM 06/13/21 06/13/21 methocarbamoL [Methocarbamol] 750 mg PO TID 06/13/21 06/13/21 Ciprofloxacin [Cipro] 500 mg PO BID 6 Days #24 tablet 06/19/21 Metoprolol Succinate [Toprol Xl] 100 mg PO DAILY 30 Days #60 tablet 06/19/21 Saccharomyces Boulardii [Florastor] 250 mg PO BIDWM 6 Days #12 cap 06/19/21 Ciprofloxacin HCl [Cipro] 500 mg PO BID #20 tablet 07/29/21 - Allergies Allergies/Adverse Reactions: Allergies Allergy/AdvReac Type Severity Reaction Status Date / Time latex AdvReac Severe Rash Verified 07/29/21 17:04 - Social History Does the pt smoke?: No Smoking Status: Never smoker Does the pt drink ETOH?: Yes Does the pt have substance abuse?: No - Immunizations Immunizations are current?: Yes - POLST Patient has POLST: No POLST Status: Full Code (She and her have talked about this. He is a DO NOT RESUSCITATE and never wants to be disabled and leave the house. Although she is talked about this with him, she has never really come to a conclusion. As such, by default, she will be full code until she decides.) PD ED PE NORMAL - Vitals Vital signs reviewed: Yes - General General: Alert and oriented X 3, No acute distress - Derm Derm: Other (Right-sided nephrostomy tube has just up a bit of purulent drainage about 1 cm of surrounding cellulitis without tenderness.) - Neuro Neuro: Alert and oriented X 3, Normal speech Results - Vitals Vitals: Vital Signs - 24 hr 07/29/21 07/29/21 07/29/21 17:04 17:26 18:42 Temperature 36.7 C 36.7 C 36.5 C Heart Rate 65 65 84 Respiratory 18 18 18 Rate Blood Pressure 120/70 120/70 146/63 H O2 Saturation 100 100 98 Oxygen O2 Source Room air - Labs Labs: Laboratory Tests 07/29/21 07/29/21 07/29/21 17:42 18:16 18:16 WBC 7.9 RBC 4.08 L Hgb 11.7 L Hct 37.6 MCV 92.2 MCH 28.7 MCHC 31.1 L RDW 13.9 Plt Count 343 MPV 9.6 Neut # (Auto) 4.4 Lymph # (Auto) 2.2 [place] # (Auto) 0.7 Eos # (Auto) 0.4 Baso # (Auto) 0.1 Absolute Nucleated RBC 0.00 Nucleated RBC % 0.0 Sodium 138 Potassium 3.9 Chloride 96 L Carbon Dioxide 25 Anion Gap 17.0 H BUN 25 H Creatinine 1.2 H Estimated GFR (MDRD) 43 L Glucose 98 Calcium 9.9 Urine Color YELLOW Urine Clarity CLOUDY Urine pH 7.5 Ur Specific [place] 1.015 Urine Protein 100 H Urine Glucose (UA) NEGATIVE Urine Ketones NEGATIVE Urine Occult Blood MODERATE H Urine Nitrite POSITIVE H Urine Bilirubin NEGATIVE Urine Urobilinogen 0.2 (NORMAL) Ur Leukocyte Esterase MODERATE H Urine RBC 6-10 H Urine WBC 6-10 H Ur Squamous Epith Cells FEW Squamous Amorphous Sediment Moderate Urine Bacteria Many H Ur Microscopic Review INDICATED Urine Culture Comments INDICATED PD MEDICAL DECISION MAKING - ED course ED course: 76-year-old woman with mild nephrostomy infection. Placed on Cipro pending cultures. Advised to push fluids. No evidence of sepsis or invasive infection. Departure - Departure Disposition: 01 Home, Self Care Clinical Impression: Complicated UTI (urinary tract infection) Condition: Good Record reviewed to determine appropriate education?: Yes Instructions: Nephrostomy Percutaneous Dc, ED Kidney Infec Female Prescriptions: Ciprofloxacin HCl [Cipro] 500 mg PO BID #20 tablet Comments: Lab work looks good except it is looking like you are little dehydrated. Drink plenty of fluids. Follow-up with Dr. Osborn as scheduled. We will culture the urine, if a resistant organism is isolated we will call you in a few days to change antibiotics. Return if worsening. Discharge Date/Time: 07/29/21 18:42
[2021-07-29 17:49] LABS: BILIRUBIN,URINE NEGATIVE (NEGATIVE); GLUCOSE, URINE (UA) NEGATIVE (NEGATIVE); KETONES,URINE (UA) NEGATIVE (NEGATIVE); LEUKOCYTE ESTERASE, URINE MODERATE (NEGATIVE); NITRITE,URINE POSITIVE (NEGATIVE); OCCULT BLOOD,URINE MODERATE (NEGATIVE); PH,URINE 7.5 PH (5.0-7.5); PROTEIN,URINE 100 mg/dL (NEGATIVE); UROBILINOGEN,URINE 0.2 (NORMAL) E.U./dL (NORMAL)
[2021-07-29 18:00] LABS: CLARITY,URINE CLOUDY (CLEAR)
[2021-07-29 18:11] LABS: AMORPHOUS SEDIMENT,UR Moderate /LPF; BACTERIA,URINE Many /HPF (None Seen); SQUAMOUS EPITHELIAL CELL,UR FEW Squamous (<= Few)
[2021-07-29 18:20] LABS: BASOPHILS # (AUTO) 0.1 10^3/uL (0.0-0.1); BASOPHILS % (AUTO) 1.1 %; EOSINOPHILS # (AUTO) 0.4 10^3/uL (0.0-0.7); EOSINOPHILS % (AUTO) 5.3 %; HCT - HEMATOCRIT 37.6 % (37.0-47.0); HGB - HEMOGLOBIN 11.7 g/dL (12.0-16.0); LYMPHOCYTES # (AUTO) 2.2 10^3/uL (1.5-3.5); LYMPHOCYTES % (AUTO) 27.7 %; MEAN CORPUSCULAR HEMOGLOBIN 28.7 pg (27.0-31.0); MEAN CORPUSCULAR HGB CONC 31.1 g/dL (32.0-36.0); MEAN CORPUSCULAR VOLUME 92.2 fL (81.0-99.0); MEAN PLATELET VOLUME 9.6 fL (7.9-10.8); MONOCYTES # (AUTO) 0.7 10^3/uL (0.0-1.0); MONOCYTES % (AUTO) 9.1 %; NEUTROPHILS # (AUTO) 4.4 10^3/uL (1.5-6.6); NEUTROPHILS % (AUTO) 56.4 %; PLT - PLATELET COUNT 343 10^3/uL (130-450); RED BLOOD COUNT 4.08 10^6/uL (4.20-5.40); RED CELL DISTRIBUTION WIDTH 13.9 % (12.0-15.0); WHITE BLOOD COUNT 7.9 x10^3/uL (4.8-10.8)
[2021-07-29 18:31] LABS: CALCIUM 9.9 mg/dL (8.5-10.3); CREATININE 1.2 mg/dL (0.4-1.0); POTASSIUM 3.9 mmol/L (3.5-5.0)
[2021-07-29] MEDS ORDERED: CIPROFLOXACIN 250 MG TABLET PO STA (18:32)
[2021-07-29 18:43] VITALS: BP 146/63
== END 2021-07-29 18:42 | disposition home or self-care (01) ==
LOC: ED 16:59
DX: N99.521 Infection of incontinent external stoma of urinary tract (principal); Y83.8 Other surgical procedures as the cause of abnormal reaction of the patient, or of later complication, without mention of misadventure at the time of the procedure; L03.311 Cellulitis of abdominal wall; E86.0 Dehydration; I10 Essential (primary) hypertension
CPT/HCPCS: 36415; 80048; 81001; 85025; 87086; 99283; A9270; 81003

== ENCOUNTER 2022-03-03 13:54 | Outpatient (CLI) | payer MEDICARE, OTHER ==
--- NOTE | 2022-03-03 17:23 | XRAY Report ---
PROCEDURE: Chest 2 View X-Ray INDICATIONS: ASTHMA TECHNIQUE: 2 view(s) of the chest. COMPARISON: None. FINDINGS: Surgical changes and devices: Surgical clips are noted in epigastric region.. Lungs and pleura: No pleural effusions or pneumothorax. Increased bronchovascular markings in bilate ral hilar region are seen with bronchial wall thickening. No definite focal infiltrate. Mediastinum: Mediastinal contours are normal. Heart size is normal. Bones and chest wall: No suspicious bony abnormalities. Soft tissues appear unremarkable. IMPRESSION: Finding is consistent with reactive airway disease such as bronchitis or asthma. No defi nite focal infiltrate. No pleural effusion or pneumothorax. Reviewed by: Boby Rocha MD on 03/03/2022 5:21 PM PDT Approved by: Boby Rocha MD on 03/03/2022 5:21 PM PDT Station ID: [id number]
== END 2022-03-03 13:55 | disposition home or self-care (01) ==
LOC: DI 13:54
PROVIDERS: ATTEND Physician Assistant
DX: J45.909 Unspecified asthma, uncomplicated (principal); R06.00 Dyspnea, unspecified

== ENCOUNTER 2022-03-05 21:18 | Emergency (ER) | payer MEDICARE, OTHER ==
[2022-03-05] MEDS ORDERED: LIDOCAINE 1%-EPI 1:100000 20 ML MDV SUBQ STA (21:27)
[2022-03-05] MEDS ORDERED: ONDANSETRON 4 MG/2 ML VIAL IVP STA (21:28)
[2022-03-05] MEDS ORDERED: MORPHINE 2 MG/ML CARPUJECT IVP STA (21:28)
[2022-03-05 21:42] LABS: BASOPHILS # (AUTO) 0.1 10^3/uL (0.0-0.1); EOSINOPHILS # (AUTO) 0.5 10^3/uL (0.0-0.7); EOSINOPHILS % (AUTO) 5.5 %; HCT - HEMATOCRIT 36.2 % (37.0-47.0); HGB - HEMOGLOBIN 11.6 g/dL (12.0-16.0); LYMPHOCYTES # (AUTO) 1.8 10^3/uL (1.5-3.5); LYMPHOCYTES % (AUTO) 19.1 %; MEAN CORPUSCULAR HEMOGLOBIN 29.7 pg (27.0-31.0); MEAN CORPUSCULAR VOLUME 92.6 fL (81.0-99.0); MEAN PLATELET VOLUME 9.2 fL (7.9-10.8); MONOCYTES # (AUTO) 0.7 10^3/uL (0.0-1.0); MONOCYTES % (AUTO) 7.6 %; NEUTROPHILS # (AUTO) 6.4 10^3/uL (1.5-6.6); NEUTROPHILS % (AUTO) 66.4 %; PLT - PLATELET COUNT 421 10^3/uL (130-450); RED BLOOD COUNT 3.91 10^6/uL (4.20-5.40); RED CELL DISTRIBUTION WIDTH 14.6 % (12.0-15.0); WHITE BLOOD COUNT 9.6 x10^3/uL (4.8-10.8)
[2022-03-05 21:49] LABS: INR 1.1 (0.8-1.2); PT - PROTHROMBIN TIME 12.2 secs (9.9-12.6)
[2022-03-05 21:57] LABS: PARTIAL THROMBOPLASTIN TIME 28.5 secs (24.9-33.3)
--- NOTE | 2022-03-05 22:46 | CT Report ---
PROCEDURE: HEAD WO INDICATIONS: Head trauma, mod-severe TECHNIQUE: Noncontrast 5 mm thick angled axial sections acquired from the foramen magnum to the vertex. For rad iation dose reduction, the following was used: automated exposure control, adjustment of mA and/or k V according to patient size. COMPARISON: Concurrent CT of the facial bones. FINDINGS: Image quality: Excellent. CSF spaces: There is mild to moderate cerebral volume loss with prominence of the ventricles and sul ci. Basal cisterns are patent. No extra-axial fluid collections. Brain: No intracranial hemorrhage, mass, or mass effect. Rand-white matter interface is preserved. T here are subcortical and periventricular white matter hypodensities consistent with small chronic sma ll vessel ischemic changes. Skull and face: There is left supraorbital soft tissue swelling with a soft tissue laceration. Calv arium and visualized facial bones are intact. The globes also appear intact. Sinuses: Visualized sinuses and mastoids are clear. IMPRESSION: 1. No acute intracranial abnormality. 2. Mild to moderate cerebral volume loss and mild chronic white matter small vessel ischemic changes. 3. Left supraorbital soft tissue laceration without evidence of underlying fracture Reviewed by: Avery Salvador MD on 03/05/2022 10:45 PM PDT Approved by: Avery Salvador MD on 03/05/2022 10:45 PM PDT Station ID: [id number]
--- NOTE | 2022-03-05 22:51 | CT Report ---
PROCEDURE: MAXILLOFACIAL WO INDICATIONS: Facial trauma TECHNIQUE: Noncontrast 1.5 mm thick axial images acquired from the mandible through the frontal sinuses, with co dominick and sagittal reformatting. For radiation dose reduction, the following was used: automated ex posure control, adjustment of mA and/or kV according to patient size. COMPARISON: Concurrent CT of the head. Head CT 06/13/2021.. FINDINGS: Image quality: Excellent. Bones and teeth: Orbital jaramillo are intact. Sinus jaramillo show no fracture or deformity. Nasal bones and septum are intact. Visualized portions of the mandible demonstrate no fractures or subluxation. Zygomatic arches are intact. Pterygoid plates are intact. Visualized portions of the skull base an d auditory canals are intact. Sinuses: Paranasal sinuses are aerated, without fluid levels, mucosal thickening, or mucoceles. Mas toid air cells are aerated. Soft tissues: There is a soft tissue laceration in the left supraorbital forehead region. The globes appear intact. No intraorbital fluid collections. Vascular: Visualized vascular structures appear normal in the absence of contrast. Bony vascular fo ramina and canals are intact. IMPRESSION: 1. No facial bone fractures identified. 2. Left supraorbital laceration and soft tissue swelling without associated fractures. The globes carlita ear intact. Reviewed by: Avery Salvador MD on 03/05/2022 10:50 PM PDT Approved by: Avery Salvador MD on 03/05/2022 10:50 PM PDT Station ID: [id number]
--- NOTE | 2022-03-05 22:56 | CT Report ---
PROCEDURE: CERVICAL SPINE WO INDICATIONS: Neck trauma, midline tenderness TECHNIQUE: Noncontrast 3 mm thick sections acquired from the skull base to the T4 level. Sagittal and coronal r eformats were then constructed. For radiation dose reduction, the following was used: automated exp osure control, adjustment of mA and/or kV according to patient size. COMPARISON: CT cervical spine 05/13/19. FINDINGS: Image quality: Excellent. Bones: No fractures or subluxation. There is straightening of the cervical lordosis. Minimal anterol isthesis is demonstrated at C3-C4 and C4-C5. There is minimal retrolisthesis at C2-3. Multilevel dege nerative disc disease redemonstrated throughout the cervical spine including partial fusion at C5-C6. Moderate to severe degenerative disc disease also redemonstrated at C6-C7 and C7-T1. There is multil evel moderate to severe facet arthropathy throughout the cervical spine. Visualized superior ribs are intact. Soft tissues: Prevertebral soft tissues are normal in thickness. No paravertebral hematomas. No ap ical pneumothoraces. Within the visualized right upper lobe, there are a few small indistinct nodules which appear similar to the prior study. IMPRESSION: 1. No acute fracture or subluxation. 2. Multilevel degenerative changes throughout cervical spine redemonstrated. Reviewed by: Avery Salvador MD on 03/05/2022 10:54 PM PDT Approved by: Avery Salvador MD on 03/05/2022 10:54 PM PDT Station ID: [id number]
[2022-03-05 22:58] LABS: ALBUMIN 3.6 g/dL (3.2-5.5); ALKALINE PHOSPHATASE 120 IU/L (42-121); ALT ALANINE AMINOTRANSFERASE 10 IU/L (10-60); AST ASPARTATE AMINOTRANSFERASE 17 IU/L (10-42); BILIRUBIN,TOTAL 0.2 mg/dL (0.2-1.0); BUN - BLOOD UREA NITROGEN 23 mg/dL (6-20); CALCIUM 8.9 mg/dL (8.5-10.3); CARBON DIOXIDE - CO2 20 mmol/L (21-32); CHLORIDE 103 mmol/L (101-111); CREATININE 1.1 mg/dL (0.4-1.0); ETOH - ETHANOL < 5.0 mg/dL; GFR - MDRD 48 (>89); GLUCOSE 109 mg/dL (70-100); LIPASE 27 U/L (22-51); POTASSIUM 3.8 mmol/L (3.5-5.0); SODIUM 135 mmol/L (135-145); TOTAL PROTEIN 7.3 g/dL (6.7-8.2)
[2022-03-05] MEDS ORDERED: BACITRACIN ZINC OINT 1 PACKET TOP STA (23:58)
[2022-03-06 00:23] VITALS: BP 146/81
--- NOTE | 2022-03-06 03:16 | ED Physician Documentation ---
PD HPI HEAD INJURY - Stated complaint Stated Complaint: GLF/LAC TO HEAD - Chief complaint Chief Complaint: Trauma Hd/Nk - Additional information Additional information: Patient is 77-year-old female presenting to the emergency department with head injury. Slipped and rolled out of her bed earlier this evening. No loss of consciousness. Does take Plavix. Obvious injury to her left scalp. Denies neck pain, back pain, pain in her extremities. 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 HEENT: None Psych: Depression Musculoskeletal: Osteoarthritis Derm: None Other Past Medical History: Watchman procedure, 11/2021 - Past Surgical History Past Surgical History: Yes General: Cholecystectomy, Appendectomy, Bowel surgery Ortho: Rotator cuff repair /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: Hysterectomy HEENT: Cataracts - Present Medications Home Medications: Ambulatory Orders Medication Instructions Recorded Confirmed Amitriptyline HCl 150 mg PO QPM 12/15/14 06/13/21 Docusate Sodium [Stool Softener] 100 mg PO DAILY PRN 12/15/14 06/13/21 Estrogens, Conjugated [Premarin] 0.3 mg PO DAILY 12/15/14 06/13/21 Gabapentin 300 mg PO DAILY 12/15/14 06/13/21 Metoclopramide [Reglan] 10 mg PO TID 12/15/14 06/13/21 Montelukast Sodium 10 mg PO QPM 12/15/14 06/13/21 Multivitamin [Multivitamins] 1 each PO DAILY 12/15/14 06/13/21 Omeprazole 20 mg PO DAILY 12/15/14 06/13/21 Fluticasone/Salmeterol [Advair 1 each IH BID 07/24/16 06/13/21 250-50 Diskus] Levothyroxine Sodium 50 mcg PO DAILY 07/24/16 06/13/21 buPROPion [Wellbutrin Sr] 100 mg PO DAILY 07/24/16 06/13/21 Albuterol Sulfate [Albuterol 2 puffs IH Q4H PRN 07/06/20 06/13/21 Sulfate Hfa] Furosemide [Lasix] 60 mg PO DAILY PRN 07/06/20 06/13/21 Hydrocodone/Acetaminophen 5 - 325 mg PO Q6H PRN 07/06/20 06/13/21 [Hydrocodone-Acetamin 5-325 mg] Ferrous Gluconate 324 mg PO DAILY 06/13/21 06/13/21 Gabapentin [Neurontin] 300 mg PO 1200 06/13/21 06/13/21 Oxybutynin Chloride [Ditropan Xl] 30 mg PO DAILY 06/13/21 06/13/21 Sucralfate [Carafate] 1 gm PO TIDWM 06/13/21 06/13/21 Metoprolol Succinate [Toprol Xl] 100 mg PO DAILY 30 Days #60 tablet 06/19/21 Saccharomyces Boulardii [Florastor] 250 mg PO BIDWM 6 Days #12 cap 06/19/21 Clopidogrel [Plavix] 75 mg PO DAILY 03/05/22 03/05/22 Spironolactone [Aldactone] 25 mg PO 03/05/22 Tamsulosin [Flomax] 0.4 mg PO DAILY 03/05/22 03/05/22 - Allergies Allergies/Adverse Reactions: Allergies Allergy/AdvReac Type Severity Reaction Status Date / Time latex AdvReac Severe Rash Verified 03/05/22 21:32 - Social History Does the pt smoke?: No Smoking Status: Never smoker Does the pt drink ETOH?: Yes Does the pt have substance abuse?: No - Immunizations Immunizations are current?: Yes - POLST Patient has POLST: No POLST Status: Full Code (She and her have talked about this. He is a DO NOT RESUSCITATE and never wants to be disabled and leave the house. Although she is talked about this with him, she has never really come to a conclusion. As such, by default, she will be full code until she decides.) PD ED PE NORMAL - General General: Alert and oriented X 3, No acute distress - HEENT HEENT: Other (12 cm stellate laceration involving the left scalp.) - Neck Neck: Supple, no meningeal sign, No bony TTP, No adenopathy - Cardiac Cardiac: RRR, No gallop - Respiratory Respiratory: No respiratory distress, Clear bilaterally - Abdomen Abdomen: Normal bowel sounds, Non tender - Back Back: No CVA TTP, No spinal TTP - Derm Derm: Normal color - Extremities Extremities: No deformity, No tenderness to palpate - Neuro Neuro: Alert and oriented X 3, No motor deficit, No sensory deficit Results - Vitals Vitals: Vital Signs - 24 hr 03/05/22 03/05/22 03/05/22 21:29 21:43 23:43 Temperature 36.5 C Heart Rate 89 73 81 Respiratory 18 15 Rate Blood Pressure 177/71 H O2 Saturation 99 98 97 03/06/22 00:21 Temperature Heart Rate 79 Respiratory 14 Rate Blood Pressure 146/81 H O2 Saturation 97 Oxygen O2 Source Room air - Labs Labs: Laboratory Tests 03/05/22 03/05/22 03/05/22 21:36 21:36 22:34 WBC 9.6 RBC 3.91 L Hgb 11.6 L Hct 36.2 L MCV 92.6 MCH 29.7 MCHC 32.0 RDW 14.6 Plt Count 421 MPV 9.2 Neut # (Auto) 6.4 Lymph # (Auto) 1.8 [place] # (Auto) 0.7 Eos # (Auto) 0.5 Baso # (Auto) 0.1 Absolute Nucleated RBC 0.00 Nucleated RBC % 0.0 PT 12.2 INR 1.1 APTT 28.5 Sodium 135 Potassium 3.8 Chloride 103 Carbon Dioxide 20 L Anion Gap 12.0 BUN 23 H Creatinine 1.1 H Estimated GFR (MDRD) 48 L Glucose 109 H Calcium 8.9 Total Bilirubin 0.2 AST 17 ALT 10 Alkaline Phosphatase 120 Total Protein 7.3 Albumin 3.6 Globulin 3.7 Albumin/Globulin Ratio 1.0 Lipase 27 Ethyl Alcohol < 5.0 Procedures - Laceration (location) Scalp Length in cm: 12 Wound type: Stellate Neurovascular status: Sensory intact, Vascular intact Anesthesia: Lidocaine 2% with epi Wound preparation: Irrigated copiously NS Skin layer closure: Nylon, Size #-0 - enter number (3.0), Sutures - enter # (21) Other: Patient tolerated well PD MEDICAL DECISION MAKING - ED course Complexity details: reviewed results, d/w patient, d/w family ED course: Patient is 77-year-old female presenting to the emergency department with stellate left-sided scalp laceration after slipping out of bed earlier this evening. Afebrile, otherwise hemodynamically stable with a nonfocal nonlateralizing neurologic exam. Physical exam including examination of the patient's back, axial skeleton, abdomen, shoulder, upper and lower extremities was negative for any pain, decreased range of motion or indications of significant traumatic injury. CT head, C-spine and maxillofacial CT were negative for acute injuries. Patient demonstrated a normal range of motion and I was able to clear her C-spine collar in the emergency department. Wound was repaired as outlined in procedure note above. At this time will discharge for follow-up with primary care for wound check and suture removal in 5 to 7 days. Otherwise clear return precautions, wound care instructions and follow-up instructions were given prior to discharge. Departure - Departure Disposition: 01 Home, Self Care Clinical Impression: Scalp laceration, Head injury, Fall at home Instructions: ED Laceration Scalp Stitch Or Stap Comments: Thank you for allowing us to care for you today at [facility]. All the imaging taken today including the CT scan of your head, cervical spine and maxillofacial area did not show any fracture. You did suffer a significant stellate laceration to your forehead and received 21 stitches here in the emergency department. These will need to be removed in 5 to 7 days. I recommend twice daily application of bacitracin or Neosporin to the site of her injury. Rinsing the site with warm water is fine but please do not scrub the site of your injury or submerge the area underwater.Please continue to use your walker at home. If it anytime you develop any new or worsening symptoms please not hesitate to return. Discharge Date/Time: 03/06/22 00:23
== END 2022-03-06 00:23 | disposition home or self-care (01) ==
LOC: ED 21:18
DX: S09.90XA Unspecified injury of head, initial encounter (principal); S01.01XA Laceration without foreign body of scalp, initial encounter; W06.XXXA Fall from bed, initial encounter; Y92.003 Bedroom of unspecified non-institutional (private) residence as the place of occurrence of the external cause; Z79.01 Long term (current) use of anticoagulants
CPT/HCPCS: 12004; 36415; 70450; 70486; 72125; 80053; 83690; 85025; 85610; 85730; 96374; 99282; 99284; A9270; G0480; 80320

== ENCOUNTER 2022-03-17 18:30 | Emergency (ER) | payer MEDICARE, OTHER ==
--- NOTE | 2022-03-17 19:07 | ED Physician Documentation ---
History of Present Illness - Stated complaint Stated Complaint: FALL,LIP LAC - Chief complaint Chief Complaint: Trauma Hd/Nk - Additonal information Additional information: 77-year-old female presents emergency department for evaluation of facial trauma after ground-level fall. She is on Plavix. She was getting ready to sort her medications for the week when she stepped backwards tripping on her walker and striking her head on the ground. She presents with large bruising to the right lower jaw as well as a contusion to her posterior head. There was no loss of consciousness. She does have full dentures in place and bleeding on her upper lip. She did have a similar ER visit last week as well Review of Systems Constitutional: reports: Reviewed and negative Eyes: reports: Reviewed and negative Ears: reports: Reviewed and negative Throat: reports: Dental pain / toothache Cardiac: reports: Reviewed and negative Respiratory: reports: Reviewed and negative GI: reports: Reviewed and negative : reports: Reviewed and negative Skin: reports: Laceration (s). denies: Rash, Lesions Musculoskeletal: denies: Neck pain, Back pain Neurologic: reports: Headache, Head injury. 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 HEENT: None Psych: Depression Musculoskeletal: Osteoarthritis Derm: None - Past Surgical History Past Surgical History: Yes General: Cholecystectomy, Appendectomy, Bowel surgery Ortho: Rotator cuff repair /COLLABORATIVE PHYSICIAN: Hysterectomy HEENT: Cataracts - Present Medications Home Medications: Ambulatory Orders Medication Instructions Recorded Confirmed Amitriptyline HCl 150 mg PO QPM 12/15/14 06/13/21 Docusate Sodium [Stool Softener] 100 mg PO DAILY PRN 12/15/14 06/13/21 Estrogens, Conjugated [Premarin] 0.3 mg PO DAILY 12/15/14 06/13/21 Gabapentin 300 mg PO DAILY 12/15/14 06/13/21 Metoclopramide [Reglan] 10 mg PO TID 12/15/14 06/13/21 Montelukast Sodium 10 mg PO QPM 12/15/14 06/13/21 Multivitamin [Multivitamins] 1 each PO DAILY 12/15/14 06/13/21 Omeprazole 20 mg PO DAILY 12/15/14 06/13/21 Fluticasone/Salmeterol [Advair 1 each IH BID 07/24/16 06/13/21 250-50 Diskus] Levothyroxine Sodium 50 mcg PO DAILY 07/24/16 06/13/21 buPROPion [Wellbutrin Sr] 100 mg PO DAILY 07/24/16 06/13/21 Albuterol Sulfate [Albuterol 2 puffs IH Q4H PRN 07/06/20 06/13/21 Sulfate Hfa] Furosemide [Lasix] 60 mg PO DAILY PRN 07/06/20 06/13/21 Hydrocodone/Acetaminophen 5 - 325 mg PO Q6H PRN 07/06/20 06/13/21 [Hydrocodone-Acetamin 5-325 mg] Ferrous Gluconate 324 mg PO DAILY 06/13/21 06/13/21 Gabapentin [Neurontin] 300 mg PO 1200 06/13/21 06/13/21 Oxybutynin Chloride [Ditropan Xl] 30 mg PO DAILY 06/13/21 06/13/21 Sucralfate [Carafate] 1 gm PO TIDWM 06/13/21 06/13/21 Metoprolol Succinate [Toprol Xl] 100 mg PO DAILY 30 Days #60 tablet 06/19/21 Saccharomyces Boulardii [Florastor] 250 mg PO BIDWM 6 Days #12 cap 06/19/21 Clopidogrel [Plavix] 75 mg PO DAILY 03/05/22 03/05/22 Spironolactone [Aldactone] 25 mg PO 03/05/22 Tamsulosin [Flomax] 0.4 mg PO DAILY 03/05/22 03/05/22 - Allergies Allergies/Adverse Reactions: Allergies Allergy/AdvReac Type Severity Reaction Status Date / Time latex AdvReac Severe Rash Verified 03/17/22 18:42 - Social History Does the pt smoke?: No Smoking Status: Never smoker Does the pt drink ETOH?: Yes Does the pt have substance abuse?: No - Immunizations Immunizations are current?: Yes - POLST Patient has POLST: No POLST Status: Full Code (She and her have talked about this. He is a DO NOT RESUSCITATE and never wants to be disabled and leave the house. Although she is talked about this with him, she has never really come to a conclusion. As such, by default, she will be full code until she decides.) PD ED PE EXPANDED - General General: Alert, No acute distress - HEENT HEENT: PERRL, Other (Superficial laceration to the inner upper lip which is bleeding. Large bruise to the right lateral jaw. Noted old well-healing laceration to the left forehead). No: Atraumatic - Neck Neck: Supple w/out meningeal sx. No: Adenopathy - Cardiac Cardiac: Regular Rate, Radial strong equal, Pedal strong equal, Cap refill < 2 sec - Respiratory Respiratory: Clear to ausultation yasmani. No: Distress, Labored - Abdomen Abdomen: Normal Bowel sounds. No: Tender to palpation - Derm Derm: Normal color, Warm and dry. No: Rash - Neuro Neuro: Alert and Oriented X 3, CNII-XII intact - GCS Eye Opening: Spontaneous Motor: Obeys Commands Verbal: Oriented Total: 15 Results - Vitals Vitals: Vital Signs - 24 hr 03/17/22 03/17/22 03/17/22 18:39 19:12 19:41 Temperature 36.2 C L Heart Rate 85 80 80 Respiratory 16 10 L 12 Rate Blood Pressure 104/43 L 147/92 H 104/54 L O2 Saturation 100 100 98 Oxygen O2 Source Room air - Labs Labs: Laboratory Tests 03/17/22 03/17/22 03/17/22 18:47 19:17 19:20 WBC 11.2 H RBC 3.75 L Hgb 10.8 L Hct 34.4 L MCV 91.7 MCH 28.8 MCHC 31.4 L RDW 14.9 Plt Count 395 MPV 9.0 Neut # (Auto) 8.7 H Lymph # (Auto) 1.6 [place] # (Auto) 0.7 Eos # (Auto) 0.2 Baso # (Auto) 0.1 Absolute Nucleated RBC 0.00 Nucleated RBC % 0.0 INR (Fingerstick) 1.1 Sodium 136 Potassium 3.0 L Chloride 103 Carbon Dioxide 22 Anion Gap 11.0 BUN 19 Creatinine 0.8 Estimated GFR (MDRD) 69 L Glucose 93 Calcium 8.8 Total Bilirubin 0.3 AST 15 ALT 10 Alkaline Phosphatase 129 H Total Protein 6.9 Albumin 3.1 L Globulin 3.8 Albumin/Globulin Ratio 0.8 L Lipase 24 - Rads (name of study) c- spine ct Radiology: Final report received (No fracture or dislocation) CT head Radiology: Final report received (No acute intracranial abnormality.) max fac CT Radiology: Final report received (No acute traumatic abnormality of the maxillofacial bones) PD MEDICAL DECISION MAKING - ED course Complexity details: reviewed results, re-evaluated patient, considered differential, d/w patient, d/w family ED course: 77-year-old female presents emergency department for evaluation of facial trauma after mechanical ground-level fall this afternoon. This is her second fall in the last week. She is on Plavix and thus was evaluated as a modified trauma. On evaluation she does have an old laceration to her left forehead which was Closed at her most recent ED visit. This appeared to be healing well. However she is does have some significant bruising to her right jaw. She also had a superficial laceration to her upper lip that had persisted to bleed. CT of the head and neck was without acute findings. Specifically a maxillofacial CT did not show findings of orbital or jaw fracture. Once her dentures were removed and her mouth was cleansed of blood there appeared to be no further bleeding or laceration amenable to repair. Patient is speaking normally without Midface or jaw instability. CT imaging findings were discussed with patient and her at the bedside. She is feeling markedly better and is stable for discharge home. Encouraged very close follow-up with her primary care provider. Emergent return precautions were discussed for concerns of sudden severe headache, facial droop slurred speech or other emergent concerns Departure - Departure Disposition: 01 Home, Self Care Clinical Impression: Fall from ground level, Anticoagulated Facial contusion Qualifiers: Encounter type: initial encounter Qualified Code(s): S00.83XA - Contusion of other part of head, initial encounter Condition: Stable Record reviewed to determine appropriate education?: Yes Comments: Johanna you are seen today in the ER after a fall. You do have a significant amount of bruising to your face, under your left eye as well as your right jaw. Some of this is related to the old fall last week. We did do CT imaging of the bones in your face, your brain as well as your neck. There were no findings of broken bones or bruising and bleeding within the brain. In general I expect that you will be quite sore over the next few days. You can continue to take your routine pain medications at home. 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 If at any point you develop sudden severe headache, have slurred speech, facial droop or any other emergent concerns please return to the ER. I do recommend that you place a generous amount of bacitracin or Neosporin to the laceration on your left forehead. This will allow it to heal better, the scab can be removed and make removing the sutures easier
[2022-03-17 19:23] LABS: BASOPHILS # (AUTO) 0.1 10^3/uL (0.0-0.1); BASOPHILS % (AUTO) 0.5 %; EOSINOPHILS # (AUTO) 0.2 10^3/uL (0.0-0.7); EOSINOPHILS % (AUTO) 1.6 %; HCT - HEMATOCRIT 34.4 % (37.0-47.0); HGB - HEMOGLOBIN 10.8 g/dL (12.0-16.0); LYMPHOCYTES # (AUTO) 1.6 10^3/uL (1.5-3.5); LYMPHOCYTES % (AUTO) 13.8 %; MEAN CORPUSCULAR HEMOGLOBIN 28.8 pg (27.0-31.0); MEAN CORPUSCULAR HGB CONC 31.4 g/dL (32.0-36.0); MEAN CORPUSCULAR VOLUME 91.7 fL (81.0-99.0); MONOCYTES # (AUTO) 0.7 10^3/uL (0.0-1.0); MONOCYTES % (AUTO) 6.3 %; NEUTROPHILS # (AUTO) 8.7 10^3/uL (1.5-6.6); NEUTROPHILS % (AUTO) 77.4 %; PLT - PLATELET COUNT 395 10^3/uL (130-450); RED BLOOD COUNT 3.75 10^6/uL (4.20-5.40); RED CELL DISTRIBUTION WIDTH 14.9 % (12.0-15.0); WHITE BLOOD COUNT 11.2 x10^3/uL (4.8-10.8)
--- NOTE | 2022-03-17 19:28 | CT Report ---
PROCEDURE: HEAD WO INDICATIONS: GLF; anticoagulated TECHNIQUE: Noncontrast 4.5 mm thick angled axial sections acquired from the foramen magnum to the vertex. For r adiation dose reduction, the following was used: automated exposure control, adjustment of mA and/or kV according to patient size. COMPARISON: 03/05/2022 FINDINGS: Image quality: Excellent. CSF spaces: Basal cisterns are patent. No extra-axial fluid collections. Ventricles are normal in size and shape. Brain: No midline shift. No intracranial masses or hemorrhage. Rand-white matter interface is norm al. Cerebral volume loss consistent with age is seen. Subcortical and periventricular hypodensities are consistent with microvascular ischemic disease. Skull and face: Calvarium and visualized facial bones are intact, without suspicious lesions. Sinuses: Visualized sinuses and mastoids are clear. IMPRESSION: 1. No acute intracranial abnormality. 2. Microvascular ischemic disease and age-related cerebral volume loss. Reviewed by: Tayo Villa on 03/17/2022 7:26 PM PDT Approved by: Tayo Villa on 03/17/2022 7:26 PM PDT Station ID: [id number]
--- NOTE | 2022-03-17 19:30 | CT Report ---
PROCEDURE: MAXILLOFACIAL WO INDICATIONS: glf; Bruising on right jaw questionable fracture TECHNIQUE: Noncontrast 1.5 mm thick axial images acquired from the mandible through the frontal sinuses, with co dominick and sagittal reformatting. For radiation dose reduction, the following was used: automated ex posure control, adjustment of mA and/or kV according to patient size. COMPARISON: None. FINDINGS: Image quality: Excellent. Bones and teeth: Orbital jaramillo are intact. Sinus jaramillo show no fracture or deformity. Nasal bones and septum are intact. Visualized portions of the mandible demonstrate no fractures or subluxation. Zygomatic arches are intact. Pterygoid plates are intact. Visualized portions of the skull base an d auditory canals are intact. Sinuses: Paranasal sinuses are aerated, without fluid levels, mucosal thickening, or mucoceles. [place] air cells are aerated. Soft tissues: No edema, masses, or fluid collections. No enlarged lymph nodes. No soft tissue lace rations or debris. Vascular: Visualized vascular structures appear normal in the absence of contrast. Bony vascular fo ramina and canals are intact. IMPRESSION: No acute traumatic abnormality of the maxillofacial bones. Reviewed by: Tayo Villa on 03/17/2022 7:28 PM PDT Approved by: Tayo Villa on 03/17/2022 7:28 PM PDT Station ID: [id number]
[2022-03-17 19:33] LABS: ALBUMIN 3.1 g/dL (3.2-5.5); BILIRUBIN,TOTAL 0.3 mg/dL (0.2-1.0); CALCIUM 8.8 mg/dL (8.5-10.3); CREATININE 0.8 mg/dL (0.4-1.0); TOTAL PROTEIN 6.9 g/dL (6.7-8.2)
[2022-03-17 19:34] LABS: ALBUMIN/GLOBULIN RATIO 0.8 (1.0-2.2)
--- NOTE | 2022-03-17 19:34 | CT Report ---
PROCEDURE: CERVICAL SPINE WO INDICATIONS: glf; neck pain TECHNIQUE: Noncontrast 3 mm thick sections acquired from the skull base to the T4 level. Sagittal and coronal r eformats were then constructed. For radiation dose reduction, the following was used: automated exp osure control, adjustment of mA and/or kV according to patient size. COMPARISON: None. FINDINGS: Image quality: Excellent. Bones: No fractures or dislocations. Visualized superior ribs are intact. Multilevel degenerative changes with disc space narrowing and disc osteophytes at multiple levels. No central canal stenosis is identified. Soft tissues: Prevertebral soft tissues are normal in thickness. No paravertebral hematomas. No ap ical pneumothoraces. IMPRESSION: No acute traumatic abnormality of the cervical spine. Reviewed by: Tayo Villa on 03/17/2022 7:32 PM PDT Approved by: Tayo Villa on 03/17/2022 7:32 PM PDT Station ID: [id number]
[2022-03-17 20:51] VITALS: BP 110/53
== END 2022-03-17 20:46 | disposition home or self-care (01) ==
LOC: ED 18:30
DX: S00.03XA Contusion of scalp, initial encounter (principal); S00.83XA Contusion of other part of head, initial encounter; W01.0XXA Fall on same level from slipping, tripping and stumbling without subsequent striking against object, initial encounter; Y93.89 Activity, other specified; Z79.01 Long term (current) use of anticoagulants
CPT/HCPCS: 36415; 80053; 83690; 85025; 85610; 99282; 99284

== ENCOUNTER 2023-07-01 13:08 | Outpatient (CLI) | payer MEDICARE, OTHER ==
--- NOTE | 2023-07-01 15:27 | XRAY Report ---
PROCEDURE: Chest 2 View X-Ray INDICATIONS: SHORTNESS OF BREATH TECHNIQUE: 2 views of the chest were acquired. COMPARISON: 06/04/2022 FINDINGS: Surgical changes and devices: Upper abdominal clips. Lungs and pleura: No dense consolidation. No pleural effusion. Unchanged small nodules. No significa nt changes. Mediastinum: Mediastinal contours appear normal. Heart size is normal. Unchanged slight rightward tracheal deviation. Bones and chest wall: No suspicious bony lesions. Overlying soft tissues appear unremarkable. IMPRESSION: No acute consolidation or pleural effusions. Overall findings are relatively unchanged compared to .ss Reviewed by: Fidel Stevens MD on 07/01/2023 3:26 PM PDT Approved by: Fidel Stevens MD on 07/01/2023 3:26 PM PDT Station ID: [id number]
== END 2023-07-01 13:09 | disposition home or self-care (01) ==
LOC: DI 13:08
PROVIDERS: ATTEND Physician Assistant
DX: R06.02 Shortness of breath (principal)

== ENCOUNTER 2023-07-07 13:14 | Outpatient (CLI) | payer MEDICARE, OTHER ==
[2023-07-07] MEDS ORDERED: ALBUTEROL 1 PUFF INH STA (16:53)
== END 2023-07-07 13:15 | disposition home or self-care (01) ==
LOC: RT 13:14
PROVIDERS: ATTEND Physician Assistant
DX: R06.02 Shortness of breath (principal)
CPT/HCPCS: 94060; 94729

== ENCOUNTER 2023-08-03 17:21 | Emergency (ER) | payer MEDICARE, OTHER ==
[2023-08-03 17:45] VITALS: BP 128/72; O2SAT 100
--- NOTE | 2023-08-03 20:54 | ED Physician Documentation ---
History of Present Illness - Stated complaint Stated Complaint: VOMIT/TROUBLE SWALLOWING - Chief complaint Chief Complaint: Heent - Additonal information Additional information: 78-year-old female presents emergency department for evaluation of difficulty swallowing. She does have a history of Parkinson's. States that several years ago she began to have difficulty swallowing but is typically able to get food and water down after short bit but today the episode lasted several hours that she presents here. Denies a history of GERD. No history of previous EGD. 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 HEENT: None Psych: Depression Musculoskeletal: Osteoarthritis Derm: None - Past Surgical History Past Surgical History: Yes General: Cholecystectomy, Appendectomy, Bowel surgery Ortho: Rotator cuff repair /FASHION DESIGNER: Hysterectomy HEENT: Cataracts - Present Medications Home Medications: Ambulatory Orders Medication Instructions Recorded Confirmed Amitriptyline HCl 150 mg PO QPM 12/15/14 06/13/21 Docusate Sodium [Stool Softener] 100 mg PO DAILY PRN 12/15/14 06/13/21 Estrogens, Conjugated [Premarin] 0.3 mg PO DAILY 12/15/14 06/13/21 Gabapentin 300 mg PO DAILY 12/15/14 06/13/21 Metoclopramide [Reglan] 10 mg PO TID 12/15/14 06/13/21 Montelukast Sodium 10 mg PO QPM 12/15/14 06/13/21 Multivitamin [Multivitamins] 1 each PO DAILY 12/15/14 06/13/21 Omeprazole 20 mg PO DAILY 12/15/14 06/13/21 Fluticasone/Salmeterol [Advair 1 each IH BID 07/24/16 06/13/21 250-50 Diskus] Levothyroxine Sodium 50 mcg PO DAILY 07/24/16 06/13/21 buPROPion [Wellbutrin Sr] 100 mg PO DAILY 07/24/16 06/13/21 Albuterol Sulfate [Albuterol 2 puffs IH Q4H PRN 07/06/20 06/13/21 Sulfate Hfa] Furosemide [Lasix] 60 mg PO DAILY PRN 07/06/20 06/13/21 Hydrocodone/Acetaminophen 5 - 325 mg PO Q6H PRN 07/06/20 06/13/21 [Hydrocodone-Acetamin 5-325 mg] Ferrous Gluconate 324 mg PO DAILY 06/13/21 06/13/21 Gabapentin [Neurontin] 300 mg PO 1200 06/13/21 06/13/21 Sucralfate [Carafate] 1 gm PO TIDWM 06/13/21 06/13/21 oxyBUTYnin chloride [Ditropan Xl] 30 mg PO DAILY 06/13/21 06/13/21 Metoprolol Succinate [Toprol Xl] 100 mg PO DAILY 30 Days #60 tablet 06/19/21 Saccharomyces Boulardii [Florastor] 250 mg PO BIDWM 6 Days #12 cap 06/19/21 Clopidogrel [Plavix] 75 mg PO DAILY 03/05/22 03/05/22 Spironolactone [Aldactone] 25 mg PO 03/05/22 Tamsulosin [Flomax] 0.4 mg PO DAILY 03/05/22 03/05/22 - Allergies Allergies/Adverse Reactions: Allergies Allergy/AdvReac Type Severity Reaction Status Date / Time latex AdvReac Severe Rash Verified 03/17/22 18:42 - Social History Does the pt smoke?: No Smoking Status: Never smoker Does the pt drink ETOH?: Yes Does the pt have substance abuse?: No - Immunizations Immunizations are current?: Yes - POLST Patient has POLST: No POLST Status: Full Code (She and her have talked about this. He is a DO NOT RESUSCITATE and never wants to be disabled and leave the house. Although she is talked about this with him, she has never really come to a conclusion. As such, by default, she will be full code until she decides.) PD ED PE NORMAL - General General: Alert and oriented X 3, No acute distress, Well developed/nourished - HEENT HEENT: Atraumatic - Neck Neck: Supple, no meningeal sign, Other (Patient is easily swallowing liquids at the bedside without coughing or distress.) - Cardiac Cardiac: RRR, No murmur - Respiratory Respiratory: No respiratory distress, Clear bilaterally - Abdomen Abdomen: Normal bowel sounds, Soft Results - Vitals Vitals: Vital Signs - 24 hr 08/03/23 17:29 Temperature 36.4 C L Heart Rate 68 Respiratory 16 Rate Blood Pressure 128/72 O2 Saturation 100 Oxygen O2 Source Room air PD Medical Decision Making - ED course Complexity details: d/w patient, d/w family ED course: 78-year-old female began having difficulty swallowing after eating a cheese Kazakh this afternoon. This has been an intermittent problem for several years but this is the longest it is ever happened. By the time the patient came back to the ED room she been waiting in the waiting room for several hours and the obstruction has passed. She is now tolerating sips of clear liquids without any difficulty or coughing. History suggests an esophageal food impaction that is cleared. I suspect she may have a Schatzki ring. She will follow closely with her PCP to obtain an urgent referral for an EGD or referral to gastroenterology. I have recommended pured foods or thin liquids until then. The usual emergent return precautions were discussed for return of symptoms. Departure - Departure Disposition: 01 Home, Self Care Clinical Impression: Food impaction of esophagus Qualifiers: Encounter type: initial encounter Qualified Code(s): T18.128A - Food in e sophagus causing other injury, initial encounter; W44.F3XA - Food entering into or through a natural orifice, initial encounter Condition: Stable Follow-Up: Levon Kirby DO [Primary Care Provider] - Comments: Today you ate a cheese Kazakh and following that you had difficulty swallowing and felt as though food was stuck in your throat. You most likely had what is called an esophageal food impaction. This can occur when there is stricture of the muscles of the esophagus. It is important you follow closely with Dr. Kirby to obtain an urgent referral for an EGD or referral to gastroenterology. They should place a scope into your esophagus to look for areas of narrowing in the esophagus that are contributing to the symptoms. Until seen by GI or a surgeon I recommend thin or pured liquids and well chewed foods to try and prevent the impactions. Return to the ER if you have a return of similar symptoms.
== END 2023-08-03 21:00 | disposition home or self-care (01) ==
LOC: ED 17:21
DX: T18.128A Food in esophagus causing other injury, initial encounter (principal); W44.F3XA Food entering into or through a natural orifice, initial encounter; I10 Essential (primary) hypertension; E05.90 Thyrotoxicosis, unspecified without thyrotoxic crisis or storm; Z79.899 Other long term (current) drug therapy; Z79.51 Long term (current) use of inhaled steroids; Z79.02 Long term (current) use of antithrombotics/antiplatelets
CPT/HCPCS: 99282; 99283

== ENCOUNTER 2023-10-14 12:36 | Outpatient (CLI) | payer MEDICARE, OTHER | END 2023-10-14 12:37 | disposition home or self-care (01) | LOC: DI 12:36 | PROVIDERS: ATTEND Internal Medicine | DX: I50.30 Unspecified diastolic (congestive) heart failure (principal); I08.1 Rheumatic disorders of both mitral and tricuspid valves | CPT/HCPCS: 93306 ==

== ENCOUNTER 2023-10-20 08:00 | Outpatient (CLI) | payer MEDICARE, OTHER ==
--- NOTE | 2023-10-21 11:40 | XRAY Report ---
PROCEDURE: Cervical Spine 2-3V INDICATIONS: NECK PAIN TECHNIQUE: 3 views of the cervical spine were acquired. COMPARISON: Cervical spine CT 03/17/2022. FINDINGS: Bones: No acute fractures or dislocations to the C7 level. The lateral masses of C1 appear intact o n the odontoid view. No suspicious bony lesions. Disc desiccation and degenerative endplate changes are seen throughout the cervical spine, most notably at C5-6. Multilevel uncovertebral joint and fac et hypertrophy. Soft tissues: No prevertebral soft tissue swelling. IMPRESSION: Moderate multilevel spondylosis. Reviewed by: Mauri Pond MD on 10/21/2023 11:38 AM PST Approved by: Mauri Pond MD on 10/21/2023 11:38 AM PST Station ID: [id number]
== END 2023-10-20 23:59 | disposition home or self-care (01) ==
LOC: DI.S 08:00
PROVIDERS: ATTEND Registered Nurse
DX: M47.812 Spondylosis without myelopathy or radiculopathy, cervical region (principal)

== ENCOUNTER 2023-10-25 09:34 | Emergency (ER) | payer MEDICARE, OTHER ==
--- NOTE | 2023-10-25 10:42 | XRAY Report ---
PROCEDURE: Shoulder 2+V LT INDICATIONS: fall TECHNIQUE: 3 views of the shoulder were acquired. COMPARISON: Correlation is made with the accompanying plain films as well as prior chest radiograph, 06/06/2023. FINDINGS: Bones: No fractures or dislocations. No suspicious bony lesions. Visualized ribs appear intact. A ge-appropriate degenerative changes are seen. Soft tissues: No suspicious soft tissue calcifications. The visualized lungs are within normal limi ts. IMPRESSION: Degenerative changes are seen by plain film, without acute abnormality identified. If it would be helpful for clinical management decision making, please consider a dedicated, schedule d shoulder MRI for further evaluation (assuming that there is no contraindication). Reviewed by: Shola Bradley MD on 10/25/2023 9:41 AM [facility] Approved by: Shola Bradley MD on 10/25/2023 9:41 AM [facility] Station ID: [id number]
--- NOTE | 2023-10-25 10:42 | XRAY Report ---
PROCEDURE: Elbow 3+V LT INDICATIONS: Trauma TECHNIQUE: 3 views of the elbow were acquired. COMPARISON: Correlation is made with the accompanying plain films. FINDINGS: Bones: No fractures or dislocations. No suspicious bony lesions. Age-appropriate degenerative mckinney ges are seen. Soft tissues: No effusion. No suspicious soft tissue calcifications or masses. IMPRESSION: No acute bony abnormality. Reviewed by: Shola Bradley MD on 10/25/2023 9:40 AM [facility] Approved by: Shola Bradely MD on 10/25/2023 9:40 AM [facility] Station ID: [id number]
--- NOTE | 2023-10-25 10:44 | XRAY Report ---
PROCEDURE: Wrist 3+V LT INDICATIONS: fall TECHNIQUE: 3 views of the wrist were acquired. COMPARISON: Correlation is made with the accompanying plain films. FINDINGS: Bones: No fractures or dislocations. No suspicious bony lesions. Focal degenerative change is seen involving the first carpometacarpal joint, with prominent joint spa ce narrowing with remodeling change, with fragmented osteophytes. There are milder degenerative acosta es seen elsewhere. Soft tissues: Relatively prominent calcification can be seen involving the trigger fibrocartilage. IMPRESSION: No francisco acute fracture can be seen on these plain films. Please correlate with focal tenderness. If there is point tenderness (or other clinical concern for a fracture not seen on these plain films) then please consider a dedicated CT study or a short term fo llow up plain film series for further evaluation. Degenerative changes are seen, with advanced remodeling of the first carpometacarpal joint and promin ent calcification of the triangular fibrocartilage. Reviewed by: Shola Bradley MD on 10/25/2023 9:43 AM [facility] Approved by: Shola Bradley MD on 10/25/2023 9:43 AM [facility] Station ID: [id number]
[2023-10-25] MEDS ORDERED: oxyCODONE 5 MG TABLET PO STA (11:57)
--- NOTE | 2023-10-25 12:49 | CT Report ---
PROCEDURE: Head WO INDICATIONS: trauma TECHNIQUE: Noncontrast 4.5 mm thick angled axial sections acquired from the foramen magnum to the vertex. For r adiation dose reduction, the following was used: automated exposure control, adjustment of mA and/or kV according to patient size. COMPARISON: 03/17/2022, 03/05/2022. Correlation is also made with the accompanying cervical spine CT. FINDINGS: Image quality: Excellent. CSF spaces: Basal cisterns are patent. No extra-axial fluid collections. Ventricles are normal in size and shape. Brain: No midline shift. No intracranial masses or hemorrhage. Rand-white matter interface is norm al. Skull and face: Calvarium and visualized facial bones are intact, without suspicious lesions. Sinuses: Visualized sinuses and mastoids are clear. IMPRESSION: No intracranial hemorrhage is seen. No acute intracranial pathology. Reviewed by: Shola Bradley MD on 10/25/2023 11:47 AM [facility] Approved by: Shola Bradley MD on 10/25/2023 11:47 AM [facility] Station ID: [id number]
--- NOTE | 2023-10-25 12:50 | CT Report ---
PROCEDURE: Cervical Spine WO INDICATIONS: trauma TECHNIQUE: Noncontrast 3 mm thick sections acquired from the skull base to the T4 level. Sagittal and coronal r eformats were then constructed. For radiation dose reduction, the following was used: automated exp osure control, adjustment of mA and/or kV according to patient size. COMPARISON: 03/05/2022. Correlation is also made with the accompanying head CT. FINDINGS: Image quality: Excellent. Bones: No fractures or dislocations. Visualized superior ribs are intact. Moderate to prominent cervical spine degenerative change can be seen, which is worst inferiorly. Soft tissues: Prevertebral soft tissues are normal in thickness. No paravertebral hematomas. No ap ical pneumothoraces. Atherosclerotic calcification is seen. IMPRESSION: Negative for acute fracture. Moderate to prominent cervical spine degenerative change can be seen. Reviewed by: Shola Bradley MD on 10/25/2023 11:49 AM [facility] Approved by: Shola Bradley MD on 10/25/2023 11:49 AM [facility] Station ID: [id number]
--- NOTE | 2023-10-25 13:20 | ED Physician Documentation ---
History of Present Illness - Stated complaint Stated Complaint: LT SHOULDER/ARM PX - Chief complaint Chief Complaint: Trauma Ext - Additonal information Additional information: Patient 78-year-old female presenting to the emergency department with left arm and left-sided neck pain. She is accompanied by her who is present at bedside. They endorse for history of chronic left-sided neck pain that has been ongoing for several eduardo hs. Currently taking dexamethasone, tramadol, Lidoderm patches without relief. Yesterday she reports a fall onto her left side. Is uncertain whether or not she struck her head or lost consciousness but does report that her neck pain has been worse since this event. Does state that she is following with her primary care doctor and has referral to specialist for her chronic neck pain.Additionally states that she is having significant pain in her left shoulder, elbow and wrist. 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 HEENT: None Psych: Depression Musculoskeletal: Osteoarthritis Derm: None - Past Surgical History Past Surgical History: Yes General: Cholecystectomy, Appendectomy, Bowel surgery Ortho: Rotator cuff repair /SUSTAINABLE DESIGN COORDINATOR: Hysterectomy HEENT: Cataracts - Present Medications Home Medications: Ambulatory Orders Medication Instructions Recorded Confirmed Amitriptyline HCl 150 mg PO QPM 12/15/14 06/13/21 Docusate Sodium [Stool Softener] 100 mg PO DAILY PRN 12/15/14 06/13/21 Estrogens, Conjugated [Premarin] 0.3 mg PO DAILY 12/15/14 06/13/21 Gabapentin 300 mg PO DAILY 12/15/14 06/13/21 Metoclopramide [Reglan] 10 mg PO TID 12/15/14 06/13/21 Montelukast Sodium 10 mg PO QPM 12/15/14 06/13/21 Multivitamin [Multivitamins] 1 each PO DAILY 12/15/14 06/13/21 Omeprazole 20 mg PO DAILY 12/15/14 06/13/21 Fluticasone/Salmeterol [Advair 1 each IH BID 07/24/16 06/13/21 250-50 Diskus] Levothyroxine Sodium 50 mcg PO DAILY 07/24/16 06/13/21 buPROPion [Wellbutrin Sr] 100 mg PO DAILY 07/24/16 06/13/21 Albuterol Sulfate [Albuterol 2 puffs IH Q4H PRN 07/06/20 06/13/21 Sulfate Hfa] Furosemide [Lasix] 60 mg PO DAILY PRN 07/06/20 06/13/21 Hydrocodone/Acetaminophen 5 - 325 mg PO Q6H PRN 07/06/20 06/13/21 [Hydrocodone-Acetamin 5-325 mg] Ferrous Gluconate 324 mg PO DAILY 06/13/21 06/13/21 Gabapentin [Neurontin] 300 mg PO 1200 06/13/21 06/13/21 Sucralfate [Carafate] 1 gm PO TIDWM 06/13/21 06/13/21 oxyBUTYnin chloride [Ditropan Xl] 30 mg PO DAILY 06/13/21 06/13/21 Metoprolol Succinate [Toprol Xl] 100 mg PO DAILY 30 Days #60 tablet 06/19/21 Saccharomyces Boulardii [Florastor] 250 mg PO BIDWM 6 Days #12 cap 06/19/21 Clopidogrel [Plavix] 75 mg PO DAILY 03/05/22 03/05/22 Spironolactone [Aldactone] 25 mg PO 03/05/22 Tamsulosin [Flomax] 0.4 mg PO DAILY 03/05/22 03/05/22 HYDROcod/ACETAM 5/325 [Ridge 5/325] 1 - 2 ea PO Q6H PRN #14 tablet 10/25/23 - Allergies Allergies/Adverse Reactions: Allergies Allergy/AdvReac Type Severity Reaction Status Date / Time latex AdvReac Severe Rash Verified 03/17/22 18:42 - Social History Does the pt smoke?: No Smoking Status: Never smoker Does the pt drink ETOH?: Yes Does the pt have substance abuse?: No - Immunizations Immunizations are current?: Yes - POLST Patient has POLST: No POLST Status: Full Code (She and her have talked about this. He is a DO NOT RESUSCITATE and never wants to be disabled and leave the house. Although she is talked about this with him, she has never really come to a conclusion. As such, by default, she will be full code until she decides.) PD ED PE NORMAL - Vitals Vital signs reviewed: Yes - General General: Alert and oriented X 3, No acute distress - HEENT HEENT: Atraumatic - Neck Neck: Supple, no meningeal sign - Cardiac Cardiac: RRR - Respiratory Respiratory: No respiratory distress - Abdomen Abdomen: Normal bowel sounds - Female Female : Deferred - Rectal Rectal: Deferred - Extremities Extremities: No deformity, Other (Patient demonstrates some decreased range of motion of the left shoulder. Is unable to abduct the shoulder beyond 90 de grees. Has normal cq developer strength in the affected hand. Some decreased range of motion at the left elbow secondary to pain which she states refers back up to her shoulder. Normal ) Results - Vitals Vitals: Vital Signs - 24 hr 10/25/23 09:48 Temperature 36.5 C Heart Rate 60 Respiratory 16 Rate Blood Pressure 116/88 H O2 Saturation 100 Oxygen O2 Source Room air PD Medical Decision Making - ED course Complexity details: reviewed results, d/w patient ED course: Patient 78-year-old female presenting to the emergency department with left- sided arm pain as well as acute on chronic left neck pain. Afebrile, hemodynamic stable on arrival to the emergency department. No notable deformity to the left upper extremity with strong pulses and no indications neurovascular compromise. Patient did have some pain and discomfort at the wrist as well as difficulty with flexion and extension of the elbow with referred pain up into her shoulder. X-rays were negative for acute traumatic injury. She was provided with sling and Velcro wrist splint for use as needed. Similarly obtained a CT of her head and C-spine given her reported fall as well as concern for possible head trauma or injury to her cervical spine however these were similarly negative for acute injury. Of note there was significant age-related deterioration of the cervical spine noted on CT per my interpretation and that of the radiologist. She was given a single dose Roxicodone here in the emergency department. After reevaluation and long discussion with her as well as with her they did request a stronger pain medication than her currently prescribed tramadol. I had in explicit conversation with him about the risks of this medication particularly in her age group. We discussed the possibility of sedation as well as the increased risk for falls and other traumatic injuries that may result. They verbalized understanding of this but nevertheless did request a short course of Vicodin which she states she has taken in the past without incident and has helped her with pain. She was explicitly instructed to discontinue her current prescription of tramadol. She was encouraged to follow-up with her primary care doctor first thing tomorrow concerning her ED visit. Otherwise clear return precautions are given prior to discharge. Departure - Departure Disposition: 01 Home, Self Care Clinical Impression: Neck pain Fall Qualifiers: Encounter type: initial encounter Qualified Code(s): W19.XXXA - Unspecified fall, initial encounter Shoulder pain Qualifiers: Chronicity: acute Laterality: left Qualified Code(s): M25.512 - Pain in left shoulder Prescriptions: HYDROcod/ACETAM 5/325 [Ridge 5/325] 1 - 2 ea PO Q6H PRN #14 tablet PRN Reason: Pain Comments: Thank you for allowing us to care for you today [facility]. Today in the emergency department you were evaluated for any possible dangerous or life-threatening medical emergency. The x-rays of your left arm as well as the CT scan of your head and cervical spine did not show any dangerous or acute traumatic injury. The CT scan of your neck did show significant arthritis and other age-related changes. As we discussed in the emergency department I will be writing you a very short course of a stronger narcotic. Please give us to continue your current use of tramadol. Please be aware that this medication does increase your risk for oversedation, falls and other complications and needs to be used only as directed and with extreme caution. Please follow-up with your primary care doctor soon as possible. If it anytime you have new or worsening symptoms please not hesitate to return.
[2023-10-25 13:56] VITALS: BP 120/78; O2SAT 99
== END 2023-10-25 13:47 | disposition home or self-care (01) ==
LOC: ED 09:34
DX: M54.2 Cervicalgia (principal); M25.512 Pain in left shoulder; I10 Essential (primary) hypertension; Z66 Do not resuscitate; W19.XXXA Unspecified fall, initial encounter
CPT/HCPCS: 70450; 72125; 73030; 73080; 73110; 99284; A9270

== ENCOUNTER 2023-11-03 17:03 | Outpatient (CLI) | payer MEDICARE, OTHER ==
--- NOTE | 2023-11-04 14:00 | XRAY Report ---
PROCEDURE: Humerus LT INDICATIONS: LT ARM PAIN TECHNIQUE: 2 views of the humerus were acquired. COMPARISON: None. FINDINGS: Bones: No fractures or dislocations. No suspicious bony lesions. Soft tissues: No suspicious soft tissue calcifications or masses. IMPRESSION: No acute bony abnormality. Reviewed by: Fernando Owen MD on 11/04/2023 1:58 PM PST Approved by: Fernando Owen MD on 11/04/2023 1:58 PM [facility] Station ID: [id number]
== END 2023-11-03 17:04 | disposition home or self-care (01) ==
LOC: DI 17:03
PROVIDERS: ATTEND Internal Medicine
DX: M79.622 Pain in left upper arm (principal)

== ENCOUNTER 2023-12-05 13:41 | Outpatient (CLI) | payer MEDICARE, OTHER ==
--- NOTE | 2023-12-05 17:29 | MRI Report ---
PROCEDURE: Cervical Spine WO INDICATIONS: CERVICAL SPINE DDD WITH RADICULOPATHY TECHNIQUE: Noncontrast sagittal T1 spin echo and T2 fast spin echo, sagittal STIR, foraminal oblique sagittal T2 fast spin echo, and axial gradient echo or T2 fast spin echo through the cervical spine. COMPARISON: Correlation is made with prior cervical spine CT, 10/25/2023 FINDINGS: Image quality: Motion artifact is noted. Alignment and Curvature: There is minimal retrolisthesis seen at the C2-C3 level. Bone Marrow: Marrow demonstrates normal overall signal. Spinal Cord: Visualized spinal cord has normal size and signal. No cerebellar tonsillar herniation. Paraspinous Soft Tissues: No paravertebral masses. Prevertebral soft tissues are normal in thicknes s. C2-C3: Mild loss of disc height and disc signal are seen. Mild disc osteophyte complex is seen. The re is mild right-sided and minimal left-sided facet hypertrophy. There is moderate right-sided and no left-sided neuroforaminal narrowing. No central canal narrowing is seen. C3-C4: Moderate loss of disc height and signal are seen. Mild to moderate disc osteophyte complex i s seen, with a mild central disc protrusion. Moderate facet hypertrophy is seen. There is moderate t o severe right-sided and at least moderate left-sided neuroforaminal narrowing. Minimal central canal narrowing is seen. C4-C5: Moderate loss of disc height and signal are seen. Mild to moderate disc osteophyte complex is seen. There is moderate right-sided and at least moderate left-sided facet hypertrophy. There is at least moderate bilateral neuroforaminal narrowing seen, left worse than right. Mild to moderate centr al canal narrowing is seen. C5-C6: Moderate to prominent loss of disc height and disc signal can be seen, with a likely degree o f vertebral body fusion at this level. Moderate disc osteophyte complex is seen. At least moderate facet hypertrophy can be seen. There is at least moderate right-sided and moderate left-sided neurofo raminal narrowing. No significant central canal narrowing is seen. C6-C7: At least moderate loss of disc height and disc signal can be seen. Mild disc osteophyte comp mattie is seen. Moderate facet hypertrophy is seen. Moderate bilateral neural foraminal narrowing is s een. No significant central canal narrowing is seen. C7-T1: At least moderate loss of disc height and disc signal can be seen. Moderate disc osteophyte complex is seen. Moderate facet hypertrophy is seen. No significant neural foraminal or central can al narrowing can be seen. IMPRESSION: Multiple levels of significant cervical spine degenerative change can be seen, which are overall wors t at the C5-C6 level. Reviewed by: Shola Bradley MD on 12/05/2023 4:28 PM [place] Approved by: Shola Bradley MD on 12/05/2023 4:28 PM [facility] Station ID: [id number]
== END 2023-12-05 13:42 | disposition home or self-care (01) ==
LOC: DI 13:41
PROVIDERS: ATTEND Registered Nurse
DX: M50.10 Cervical disc disorder with radiculopathy, unspecified cervical region (principal); M62.830 Muscle spasm of back; M47.22 Other spondylosis with radiculopathy, cervical region; M47.23 Other spondylosis with radiculopathy, cervicothoracic region

== ENCOUNTER 2023-12-05 16:35 | Emergency (ER) | payer MEDICARE, OTHER ==
[2023-12-05 17:07] VITALS: O2SAT 100
--- NOTE | 2023-12-05 17:53 | ED Physician Documentation ---
PD HPI HEAD INJURY - Stated complaint Stated Complaint: HEAD INJ - Chief complaint Chief Complaint: Trauma Hd/Nk - History obtained from History obtained from: Patient, Family () - History of Present Illness Mechanism of head injury: Fell Where head injury occurred: Home Timing - onset: Last night Location of injury: Left, Front Quality of pain: Pain, Throbbing Associated symptoms: Neck pain, Other. No: LOC, AMS, Amnesia, Nausea / vomiting, Paresthesias, Seizures, Ear drainage, Nasal drainage Symptoms worsen with: Palpation, Movement Contributing factors: No: Anticoagulated, Intoxicated Similar symptoms before: Diagnosis (concussion) Recently seen: Clinic - Additional information Additional information: 78-year-old Johanna Allred has a history of Parkinson's and she has had frequent falls. She was using her walker last night backing up in the kitchen when she had a fall fell and hit the left mormonism. She did not have loss of consciousness with this her was in the room unable to attend to her immediately. She did not have seizure. The patient does have some pain in her neck which is worse today and she has fortuitously had an MRI done of her cervical spine today and further evaluation of her chronic neck pain. She does have some lightheadedness and dizziness she denies nausea she denies difficulty con centrating. She does have a headache over the left mormonism. Review of Systems Constitutional: denies: Fever Eyes: denies: Decreased vision Ears: denies: Ear pain Nose: denies: Rhinorrhea / runny nose, Congestion Throat: denies: Sore throat Cardiac: denies: Chest pain / pressure Respiratory: denies: Dyspnea, Cough GI: denies: Abdominal Pain, Nausea, Vomiting, Constipation, Diarrhea : denies: Dysuria, Frequency Skin: denies: Rash, Abrasion (s) Musculoskeletal: reports: Neck pain. 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: Other : None HEENT: None Psych: Depression Musculoskeletal: Osteoarthritis Derm: None - Past Surgical History Past Surgical History: Yes General: Cholecystectomy, Appendectomy, Bowel surgery Ortho: Rotator cuff repair /BLADDER TRIMMER: Hysterectomy HEENT: Cataracts - Present Medications Home Medications: Ambulatory Orders Medication Instructions Recorded Confirmed Amitriptyline HCl 150 mg PO QPM 02/27/15 08/26/21 Docusate Sodium [Stool Softener] 100 mg PO DAILY PRN 12/15/14 06/13/21 Estrogens, Conjugated [Premarin] 0.3 mg PO DAILY 12/15/14 06/13/21 Gabapentin 300 mg PO DAILY 12/15/14 06/13/21 Metoclopramide [Reglan] 10 mg PO TID 12/15/14 06/13/21 Montelukast Sodium 10 mg PO QPM 12/15/14 06/13/21 Multivitamin [Multivitamins] 1 each PO DAILY 12/15/14 06/13/21 Omeprazole 20 mg PO DAILY 12/15/14 06/13/21 Fluticasone/Salmeterol [Advair 1 each IH BID 07/24/16 06/13/21 250-50 Diskus] Levothyroxine Sodium 50 mcg PO DAILY 07/24/16 06/13/21 buPROPion [Wellbutrin Sr] 100 mg PO DAILY 07/24/16 06/13/21 Albuterol Sulfate [Albuterol 2 puffs IH Q4H PRN 07/06/20 06/13/21 Sulfate Hfa] Furosemide [Lasix] 60 mg PO DAILY PRN 07/06/20 06/13/21 Hydrocodone/Acetaminophen 5 - 325 mg PO Q6H PRN 07/06/20 06/13/21 [Hydrocodone-Acetamin 5-325 mg] Ferrous Gluconate 324 mg PO DAILY 06/13/21 06/13/21 Gabapentin [Neurontin] 300 mg PO 1200 06/13/21 06/13/21 Sucralfate [Carafate] 1 gm PO TIDWM 06/13/21 06/13/21 oxyBUTYnin chloride [Ditropan Xl] 30 mg PO DAILY 06/13/21 06/13/21 Metoprolol Succinate [Toprol Xl] 100 mg PO DAILY 30 Days #60 tablet 06/19/21 Saccharomyces Boulardii [Florastor] 250 mg PO BIDWM 6 Days #12 cap 06/19/21 Clopidogrel [Plavix] 75 mg PO DAILY 03/05/22 03/05/22 Spironolactone [Aldactone] 25 mg PO 03/05/22 Tamsulosin [Flomax] 0.4 mg PO DAILY 03/05/22 03/05/22 HYDROcod/ACETAM 5/325 [[place] 5/325] 1 - 2 ea PO Q6H PRN #14 tablet 10/25/23 - Allergies Allergies/Adverse Reactions: Allergies Allergy/AdvReac Type Severity Reaction Status Date / Time latex AdvReac Severe Rash Verified 12/05/23 17:03 - Social History Does the pt smoke?: No Smoking Status: Never smoker Does the pt drink ETOH?: Yes Does the pt have substance abuse?: No - Immunizations Immunizations are current?: Yes - POLST Patient has POLST: No POLST Status: Full Code (She and her have talked about this. He is a DO NOT RESUSCITATE and never wants to be disabled and leave the house. Although she is talked about this with him, she has never really come to a conclusion. As such, by default, she will be full code until she decides.) PD ED PE NORMAL - Vitals Vital signs reviewed: Yes (normal ) - General General: Alert and oriented X 3, No acute distress, Well developed/nourished - HEENT HEENT: PERRL, EOMI, Other (There is a bruise and ecchymosis to the left mormonism the area is tender. 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, No motor deficit, No sensory deficit, Normal speech Eye Opening: Spontaneous Motor: Obeys Commands Verbal: Oriented GCS Score: 15 - Psych Psych: Normal mood, Normal affect Results - Vitals Vitals: Vital Signs - 24 hr 12/05/23 16:58 Temperature 36.3 C L Heart Rate 62 Respiratory 15 Rate Blood Pressure 107/67 O2 Saturation 100 Oxygen O2 Source Room air - Rads (name of study) MRI cervical spine Relevant Findings:: Prelim report reviewed (Impression: Multiple levels of significant cervical spine degeneration change can be seen which are overall worse at C5-C6 level.), EMP independent interpretation of test CT head Relevant Findings:: Prelim report reviewed (Impression: No acute intracranial pathology. No intracranial hemorrhage is seen.), EMP independent interpretation of test (atropy is evident) PD Medical Decision Making - ED course Complexity details: considered differential, d/w patient, d/w family ED course: Johanna Dahl is an 78-year-old female had a fall last night bruising her left mormonism and she continues to have pain and a headache. She is come to the emergency department for further evaluation. She has pain in her neck and she has had an MRI of her neck done today. We were able to convince her radiologist to do the reading stat and we were able to use this information to prevent reflexive ordering of a cervical spine CT. We did do CT of the head. This was a negative study and the patient was discharged home in care of her . Departure - Departure Disposition: 01 Home, Self Care Clinical Impression: Concussion Qualifiers: Encounter type: initial encounter Loss of consciousness presence/duration: without LOC Qualified Code(s): S06.0X0A - Concussion without loss of consciousness, initial encounter Cervical strain, acute Qualifiers: Encounter type: initial encounter Qualified Code(s): S16.1XXA - Strain of muscle, fascia and tendon at neck level, initial encounter Condition: Stable Instructions: ED Concussion, ED Sprain Strain Neck Follow-Up: Yahir Lafleur MD [Provider Admit Priv/Credential] - Comments: Johanna, today your CAT scan looks normal and there is no evidence of a bleed inside the head. Headache can be one of the last things to leave for concussion. Your cervical spine did not show any evidence of fracture on the MRI.
--- NOTE | 2023-12-05 18:06 | CT Report ---
PROCEDURE: Head WO INDICATIONS: head inj TECHNIQUE: Noncontrast 4.5 mm thick angled axial sections acquired from the foramen magnum to the vertex. For r adiation dose reduction, the following was used: automated exposure control, adjustment of mA and/or kV according to patient size. COMPARISON: 10/25/2023 FINDINGS: Image quality: Excellent. CSF spaces: Basal cisterns are patent. No extra-axial fluid collections. Ventricles are normal in size and shape. Brain: No midline shift. No intracranial masses or hemorrhage. Rand-white matter interface is norm al. Skull and face: Calvarium and visualized facial bones are intact, without suspicious lesions. Sinuses: Visualized sinuses and mastoids are clear. IMPRESSION: No acute intracranial pathology. No intracranial hemorrhage is seen. Reviewed by: Shola Bradley MD on 12/05/2023 5:04 PM [facility] Approved by: Shola Bradley MD on 12/05/2023 5:04 PM [facility] Station ID: [id number]
[2023-12-05 18:35] VITALS: BP 115/49
== END 2023-12-05 18:31 | disposition home or self-care (01) ==
LOC: ED 16:35
DX: S06.0X0A Concussion without loss of consciousness, initial encounter (principal); W18.30XA Fall on same level, unspecified, initial encounter; Y92.000 Kitchen of unspecified non-institutional (private) residence as the place of occurrence of the external cause; M50.10 Cervical disc disorder with radiculopathy, unspecified cervical region; M62.830 Muscle spasm of back; M47.22 Other spondylosis with radiculopathy, cervical region; M47.23 Other spondylosis with radiculopathy, cervicothoracic region; G20.A1 Parkinson's disease without dyskinesia, without mention of fluctuations; I10 Essential (primary) hypertension; Z91.81 History of falling
CPT/HCPCS: 99283; 99284

== ENCOUNTER 2023-12-09 16:22 | Outpatient (CLI) | payer MEDICARE, OTHER | END 2023-12-09 23:59 | disposition critical access hospital (66) | LOC: EMS 16:22 | DX: G20.C Parkinsonism, unspecified (principal); R53.1 Weakness; R29.6 Repeated falls | CPT/HCPCS: A0425; A0429 ==

== ENCOUNTER 2023-12-09 16:40 | Emergency (ER) | payer MEDICARE, OTHER ==
[2023-12-09 17:23] LABS: BASOPHILS # (AUTO) 0.1 10^3/uL (0.0-0.1); BASOPHILS % (AUTO) 0.8 %; EOSINOPHILS # (AUTO) 0.2 10^3/uL (0.0-0.7); EOSINOPHILS % (AUTO) 3.2 %; HCT - HEMATOCRIT 31.5 % (37.0-47.0); HGB - HEMOGLOBIN 9.5 g/dL (12.0-16.0); LYMPHOCYTES # (AUTO) 0.8 10^3/uL (1.5-3.5); LYMPHOCYTES % (AUTO) 12.9 %; MEAN CORPUSCULAR HGB CONC 30.2 g/dL (32.0-36.0); MEAN PLATELET VOLUME 8.9 fL (7.9-10.8); MONOCYTES # (AUTO) 0.6 10^3/uL (0.0-1.0); NEUTROPHILS # (AUTO) 4.5 10^3/uL (1.5-6.6); NEUTROPHILS % (AUTO) 72.3 %; PLT - PLATELET COUNT 352 10^3/uL (130-450); RED BLOOD COUNT 3.28 10^6/uL (4.20-5.40); RED CELL DISTRIBUTION WIDTH 14.6 % (12.0-15.0); WHITE BLOOD COUNT 6.3 x10^3/uL (4.8-10.8)
[2023-12-09 18:03] LABS: LIPASE < 10 U/L (11-82)
[2023-12-09 18:04] LABS: ALBUMIN 3.3 g/dL (3.2-5.5); ALBUMIN/GLOBULIN RATIO 1.1 (1.0-2.2); ALKALINE PHOSPHATASE 72 IU/L (42-121); ALT ALANINE AMINOTRANSFERASE < 3 IU/L (10-60); AST ASPARTATE AMINOTRANSFERASE 7 IU/L (10-42); BILIRUBIN,TOTAL 0.2 mg/dL (0.2-1.0); BUN - BLOOD UREA NITROGEN 16 mg/dL (6-20); CALCIUM 9.1 mg/dL (8.5-10.3); CARBON DIOXIDE - CO2 26 mmol/L (21-32); CHLORIDE 104 mmol/L (101-111); CREATININE 1.2 mg/dL (0.6-1.3); GFR - MDRD 43 (>89); GLUCOSE 97 mg/dL (74-104); POTASSIUM 4.1 mmol/L (3.5-4.5); SODIUM 138 mmol/L (135-145); TOTAL PROTEIN 6.2 g/dL (6.4-8.9)
[2023-12-09 18:27] LABS: BILIRUBIN,URINE NEGATIVE (NEGATIVE); GLUCOSE, URINE (UA) NEGATIVE (NEGATIVE); KETONES,URINE (UA) NEGATIVE (NEGATIVE); LEUKOCYTE ESTERASE, URINE LARGE (NEGATIVE); NITRITE,URINE NEGATIVE (NEGATIVE); OCCULT BLOOD,URINE TRACE-INTA (NEGATIVE); PROTEIN,URINE NEGATIVE (NEGATIVE); UROBILINOGEN,URINE 1 (NORMAL) E.U./dL (NORMAL)
[2023-12-09 18:29] LABS: CLARITY,URINE HAZY (CLEAR)
[2023-12-09 18:39] LABS: BACTERIA,URINE Few /HPF (None Seen); RBC,URINE 0-5 /HPF (0-5); SQUAMOUS EPITHELIAL CELL,UR RARE Squamous (<= Few); WBC,URINE >25 /HPF (0-5)
[2023-12-09] MEDS: cefTRIAXone 1 GM VIAL IVP STA (19:11)
--- NOTE | 2023-12-09 19:12 | ED Physician Documentation ---
History of Present Illness - Stated complaint Stated Complaint: FALLS - Chief complaint Chief Complaint: Neuro - History obtained from History obtained from: Patient, Family, EMS - History of Present Illness Timing: Today Pain level max: 0 Pain level now: 0 - Additonal information Additional information: Patient is an 78-year-old female who presents to the emergency department after ground-level fall. She has a history of Parkinson's disease. Brought in by her family. Family and patient states that she has been having increased tremors and shaking over the past 3 days. They have not spoken with her neurologist or PCP. Today she fell and suffered a skin tear to the left elbow. No head injury. No neck or back pain. Not on blood thinners. Tetanus up-to-date. No hip pain. No shoulder pain. No other injuries. No fevers. No cough. No congestion. 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 : None HEENT: None Psych: Depression Musculoskeletal: Osteoarthritis Derm: None - Past Surgical History Past Surgical History: Yes General: Cholecystectomy, Appendectomy, Bowel surgery Ortho: Rotator cuff repair /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: Hysterectomy HEENT: Cataracts - Present Medications Home Medications: Ambulatory Orders Medication Instructions Recorded Confirmed Amitriptyline HCl 150 mg PO QPM 12/15/14 06/13/21 Docusate Sodium [Stool Softener] 100 mg PO DAILY PRN 12/15/14 06/13/21 Estrogens, Conjugated [Premarin] 0.3 mg PO DAILY 12/15/14 06/13/21 Gabapentin 300 mg PO DAILY 12/15/14 06/13/21 Metoclopramide [Reglan] 10 mg PO TID 12/15/14 06/13/21 Montelukast Sodium 10 mg PO QPM 12/15/14 06/13/21 Multivitamin [Multivitamins] 1 each PO DAILY 12/15/14 06/13/21 Omeprazole 20 mg PO DAILY 12/15/14 06/13/21 Fluticasone/Salmeterol [Advair 1 each IH BID 07/24/16 06/13/21 250-50 Diskus] Levothyroxine Sodium 50 mcg PO DAILY 07/24/16 06/13/21 buPROPion [Wellbutrin Sr] 100 mg PO DAILY 07/24/16 06/13/21 Albuterol Sulfate [Albuterol 2 puffs IH Q4H PRN 07/06/20 06/13/21 Sulfate Hfa] Furosemide [Lasix] 60 mg PO DAILY PRN 07/06/20 06/13/21 Hydrocodone/Acetaminophen 5 - 325 mg PO Q6H PRN 07/06/20 06/13/21 [Hydrocodone-Acetamin 5-325 mg] Ferrous Gluconate 324 mg PO DAILY 06/13/21 06/13/21 Gabapentin [Neurontin] 300 mg PO 1200 06/13/21 06/13/21 Sucralfate [Carafate] 1 gm PO TIDWM 06/13/21 06/13/21 oxyBUTYnin chloride [Ditropan Xl] 30 mg PO DAILY 06/13/21 06/13/21 Metoprolol Succinate [Toprol Xl] 100 mg PO DAILY 30 Days #60 tablet 06/19/21 Saccharomyces Boulardii [Florastor] 250 mg PO BIDWM 6 Days #12 cap 06/19/21 Clopidogrel [Plavix] 75 mg PO DAILY 03/05/22 03/05/22 Spironolactone [Aldactone] 25 mg PO 03/05/22 Tamsulosin [Flomax] 0.4 mg PO DAILY 03/05/22 03/05/22 HYDROcod/ACETAM 5/325 [[place] 5/325] 1 - 2 ea PO Q6H PRN #14 tablet 10/25/23 cephALEXin [Keflex] 500 mg PO Q6H #20 cap 12/09/23 - Allergies Allergies/Adverse Reactions: Allergies Allergy/AdvReac Type Severity Reaction Status Date / Time latex AdvReac Severe Rash Verified 12/09/23 16:55 - Social History Does the pt smoke?: No Smoking Status: Never smoker Does the pt drink ETOH?: Yes Does the pt have substance abuse?: No - Immunizations Immunizations are current?: Yes - POLST Patient has POLST: No POLST Status: Full Code (She and her have talked about this. He is a DO NOT RESUSCITATE and never wants to be disabled and leave the house. Although she is talked about this with him, she has never really come to a conclusion. As such, by default, she will be full code until she decides.) PD ED PE NORMAL - Vitals Vital signs reviewed: Yes - General General: Alert and oriented X 3, No acute distress - HEENT HEENT: Atraumatic, PERRL, EOMI, Moist mucous membranes, Pharynx benign - Neck Neck: Supple, no meningeal sign, No bony TTP - Cardiac Cardiac: RRR, Strong equal pulses - Respiratory Respiratory: No respiratory distress, Clear bilaterally - Abdomen Abdomen: Soft, Non tender, Non distended - Back Back: No CVA TTP, No spinal TTP - Derm Derm: Warm and dry - Extremities Extremities: Other (Full range of motion of the bilateral hips, knees, ankles, shoulders, wrists, elbows and hands without pain. There is a small skin tear to the left elbow. There is an old skin tear to the right lower extremity.) - Neuro Neuro: Alert and oriented X 3 - Psych Psych: Normal mood, Normal affect Results - Vitals Vitals: Vital Signs - 24 hr 12/09/23 12/09/23 12/09/23 16:50 16:55 18:55 Temperature 37 C Heart Rate 76 68 80 Respiratory 18 18 18 Rate Blood Pressure 107/49 L 109/49 L 100/53 L O2 Saturation 94 96 99 Oxygen O2 Source Room air - Labs Labs: Laboratory Tests 12/09/23 12/09/23 12/09/23 17:10 17:17 18:17 WBC 6.3 RBC 3.28 L Hgb 9.5 L Hct 31.5 L MCV 96.0 MCH 29.0 MCHC 30.2 L RDW 14.6 Plt Count 352 MPV 8.9 Neut # (Auto) 4.5 Lymph # (Auto) 0.8 L Summers # (Auto) 0.6 Eos # (Auto) 0.2 Baso # (Auto) 0.1 Absolute Nucleated RBC 0.00 Nucleated RBC % 0.0 Sodium 138 Potassium 4.1 Chloride 104 Carbon Dioxide 26 Anion Gap 8.0 BUN 16 Creatinine 1.2 Estimated GFR (MDRD) 43 L Glucose 97 Calcium 9.1 Total Bilirubin 0.2 AST 7 L ALT < 3 L Alkaline Phosphatase 72 Total Protein 6.2 L Albumin 3.3 Globulin 2.9 Albumin/Globulin Ratio 1.1 Lipase < 10 L Urine Color YELLOW Urine Clarity HAZY Urine pH 7.0 Ur Specific [place] <=1.005 Urine Protein NEGATIVE Urine Glucose (UA) NEGATIVE Urine Ketones NEGATIVE Urine Occult Blood TRACE-INTA Urine Nitrite NEGATIVE Urine Bilirubin NEGATIVE Urine Urobilinogen 1 (NORMAL) Ur Leukocyte Esterase LARGE H Urine RBC 0-5 Urine WBC >25 H Ur Squamous Epith Cells RARE Squamous Urine Bacteria Few Ur Microscopic Review INDICATED Urine Culture Comments INDICATED PD Medical Decision Making - ED course Complexity details: reviewed results, re-evaluated patient, considered differential, d/w patient, d/w family ED course: 78-year-old female status post ground-level fall, has a skin tear to the left elbow. This was cleansed and bandaged with Mepitel. A clean bandage was then placed over the Mepitel. Tetanus up-to-date. No head, neck, back pain. No other acute injuries. Positive for UTI and we will treat for this. Discussed the case with Dr. Hewitt, on-call for her neurologist, does not recommend any changes to her carbidopa levodopa at this time. Patient is well-appearing, nontoxic. Afebrile. No evidence of sepsis. She is currently on Bactrim, we will have her stop this and change her to Keflex. Patient counseled regarding signs and symptoms for which I believe and urgent re-evaluation would be necessary. Patient with good understanding of and agreement to plan and is comfortable going home at this time This document was made in part using voice recognition software. While efforts are made to proofread this document, sound alike and grammatical errors may occur. Departure - Departure Disposition: 01 Home, Self Care Clinical Impression: Skin tear UTI (urinary tract infection) Qualifiers: Urinary tract infection type: acute cystitis Hematuria presence: without hematuria Qualified Code(s): N30.00 - Acute cystitis without hematuria Condition: Good Instructions: ED UTI Cystitis Female, ED Wound Care Follow-Up: Yahir Lafleur MD [Primary Care Provider] - Within 1 week Prescriptions: cephALEXin [Keflex] 500 mg PO Q6H #20 cap Comments: Johanna appears to have a urinary tract infection. She was given Rocephin tonight. We will place her on Keflex for home, you can stop the Bactrim that she is on. Her prescription was sent to [facility] in [place]. I spoke with Dr. Hewitt, on-call for Dr. Deal, he recommends keeping her medication the same and following up in clinic for further evaluation of the increased tremors. As we discussed the Mepitel can stay in place for up to 1 week. You can change the outer bandage as needed. She will likely need wound care for the wound on the right lower extremity. Her doctor can refer her for this. Forms: PCP List
[2023-12-09 19:26] VITALS: BP 100/53; O2SAT 99
--- NOTE | 2023-12-11 15:28 | ED Physician Documentation ---
ED Addendum - Addendum Addendum: 12/11/23 15:26 The patient's urine culture came back showing Enterococcus faecalis as well as some nondescript gram-negative bacilli. He had been discharged on cephalexin. No allergies to medication just latex. Sensitivity de la fuente it is sensitive to ciprofloxacin and that should cover the gram-negative bacilli as well which was only less than 10,000 CFU's. I sent a prescription for Cipro 250 twice daily for 7 days to [facility] pharmacy in [place].
== END 2023-12-09 19:55 | disposition home or self-care (01) ==
LOC: EDUNIT# → ED 16:40
DX: S51.012A Laceration without foreign body of left elbow, initial encounter (principal); W18.30XA Fall on same level, unspecified, initial encounter; N30.00 Acute cystitis without hematuria; B95.2 Enterococcus as the cause of diseases classified elsewhere; B96.89 Other specified bacterial agents as the cause of diseases classified elsewhere; I10 Essential (primary) hypertension; E05.90 Thyrotoxicosis, unspecified without thyrotoxic crisis or storm; G20.A1 Parkinson's disease without dyskinesia, without mention of fluctuations; Z79.899 Other long term (current) drug therapy; Z79.51 Long term (current) use of inhaled steroids; Z79.02 Long term (current) use of antithrombotics/antiplatelets; Z91.040 Latex allergy status
CPT/HCPCS: 36415; 80053; 81001; 81003; 83690; 85025; 87077; 87086; 87181; 96374; 99284

== ENCOUNTER 2024-01-07 14:32 | Outpatient (CLI) | payer MEDICARE, OTHER | END 2024-01-07 23:59 | disposition critical access hospital (66) | LOC: EMS 14:32 | DX: R47.81 Slurred speech (principal); R29.898 Other symptoms and signs involving the musculoskeletal system; R29.810 Facial weakness | CPT/HCPCS: A0425; A0429 ==

== ENCOUNTER 2024-01-07 14:56 | Emergency (ER) | payer MEDICARE, OTHER ==
--- NOTE | 2024-01-07 15:21 | CT Report ---
PROCEDURE: Head W/O Stroke Protocol INDICATIONS: Neuro deficit, acute, stroke suspected TECHNIQUE: Noncontrast 4.5 mm thick angled axial sections acquired from the foramen magnum to the vertex, with c oronal reformats. For radiation dose reduction, the following was used: automated exposure control, adjustment of mA and/or kV according to patient size. COMPARISON: 12/05/2023 and 10/25/2023. FINDINGS: Image quality: Excellent. CSF spaces: Basal cisterns are patent. No extra-axial fluid collections. Ventricles are normal in size and shape. Brain: No midline shift. There is moderate age-related volume loss and mild periventricular and durga p white matter chronic small vessel ischemic changes. No intracranial masses or hemorrhage. Rand-whi te matter interface is normal. Skull and face: Calvarium and visualized facial bones are intact, without suspicious lesions. Sinuses: Visualized sinuses and mastoids are clear. IMPRESSION: No acute intracranial pathology no significant changes from previous studies. Findings were discussed with ordering provider on 01/07/2024 at 3:20 PM. This study fulfills neurological imaging criteria for inclusion or exclusion of acute stroke therapie s based on available published neurological imaging guidelines. Reviewed by: Boby Rocha MD on 01/07/2024 3:20 PM PDT Approved by: Boby Rocha MD on 01/07/2024 3:20 PM PDT Station ID: [id number]
--- NOTE | 2024-01-07 15:33 | ED Physician Documentation ---
History of Present Illness - Stated complaint Stated Complaint: SLURRED SPEECH/LEFT SIDE WEAKNESS - Chief complaint Chief Complaint: Neuro - Additonal information Additional information: 78-year-old female presents emergency department via EMS for concerns of new onset slurred speech. Patient recently had a small bowel obstruction requiring surgery, was discharged from hospital about 4 days ago and has midline shobha to her abdomen. According to patient's who is her caregiver patient has a history of Parkinson's she woke today with possible left facial drooping that resolved and then between 12:00 and 2:00 per patient's started to have left facial droop he again with some left upper arm extremity weakness. Patient's also reports that this left upper extremity weakness is chronic as she has had multiple falls and is going to require possible surgery to her left shoulder but he is unsure of the exact injury or type of surgery that she will eventually need. Upon arrival to the ER she has no aphasia no slurred speech no facial drooping and appears to be neurologically intact aside from the left upper extremity weakness that patient reports is chronic. PD PAST MEDICAL HISTORY - Past Medical History Past Medical History: Yes Cardiovascular: Hypertension, Other Respiratory: Asthma Neuro: Parkinson's Endocrine/Autoimmune: HyPERthyroidism GI: None CONSULTING TECHNICAL DIRECTOR: Other : None HEENT: None Psych: Depression Musculoskeletal: Osteoarthritis Derm: None - Past Surgical History Past Surgical History: Yes General: Cholecystectomy, Appendectomy, Bowel surgery Ortho: Rotator cuff repair /CONSULTING TECHNICAL DIRECTOR: Hysterectomy HEENT: Cataracts - Present Medications Home Medications: Ambulatory Orders Medication Instructions Recorded Confirmed Amitriptyline HCl 150 mg PO QPM 12/15/14 06/13/21 Docusate Sodium [Stool Softener] 100 mg PO DAILY PRN 12/15/14 06/13/21 Estrogens, Conjugated [Premarin] 0.3 mg PO DAILY 12/15/14 06/13/21 Gabapentin 300 mg PO DAILY 12/15/14 06/13/21 Metoclopramide [Reglan] 10 mg PO TID 12/15/14 06/13/21 Montelukast Sodium 10 mg PO QPM 12/15/14 06/13/21 Multivitamin [Multivitamins] 1 each PO DAILY 12/15/14 06/13/21 Omeprazole 20 mg PO DAILY 12/15/14 06/13/21 Fluticasone/Salmeterol [Advair 1 each IH BID 07/24/16 06/13/21 250-50 Diskus] Levothyroxine Sodium 50 mcg PO DAILY 07/24/16 06/13/21 buPROPion [Wellbutrin Sr] 100 mg PO DAILY 07/24/16 06/13/21 Albuterol Sulfate [Albuterol 2 puffs IH Q4H PRN 07/06/20 06/13/21 Sulfate Hfa] Furosemide [Lasix] 60 mg PO DAILY PRN 07/06/20 06/13/21 Hydrocodone/Acetaminophen 5 - 325 mg PO Q6H PRN 07/06/20 06/13/21 [Hydrocodone-Acetamin 5-325 mg] Ferrous Gluconate 324 mg PO DAILY 06/13/21 06/13/21 Gabapentin [Neurontin] 300 mg PO 1200 06/13/21 06/13/21 Sucralfate [Carafate] 1 gm PO TIDWM 06/13/21 06/13/21 oxyBUTYnin chloride [Ditropan Xl] 30 mg PO DAILY 06/13/21 06/13/21 Metoprolol Succinate [Toprol Xl] 100 mg PO DAILY 30 Days #60 tablet 06/19/21 Saccharomyces Boulardii [Florastor] 250 mg PO BIDWM 6 Days #12 cap 06/19/21 Clopidogrel [Plavix] 75 mg PO DAILY 03/05/22 03/05/22 Spironolactone [Aldactone] 25 mg PO 03/05/22 Tamsulosin [Flomax] 0.4 mg PO DAILY 03/05/22 03/05/22 HYDROcod/ACETAM 5/325 [[place] 5/325] 1 - 2 ea PO Q6H PRN #14 tablet 10/25/23 cephALEXin [Keflex] 500 mg PO Q6H #20 cap 12/09/23 Ciprofloxacin [Cipro] 250 mg PO BID #14 tablet 12/11/23 - Allergies Allergies/Adverse Reactions: Allergies Allergy/AdvReac Type Severity Reaction Status Date / Time latex AdvReac Severe Rash Verified 01/07/24 15:25 - Social History Does the pt smoke?: No Smoking Status: Never smoker Does the pt drink ETOH?: Yes Does the pt have substance abuse?: No - Immunizations Immunizations are current?: Yes - POLST Patient has POLST: No POLST Status: Full Code (She and her have talked about this. He is a DO NOT RESUSCITATE and never wants to be disabled and leave the house. Although she is talked about this with him, she has never really come to a conclusion. 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, No sensory deficit, Normal speech, Other (Left arm weakness, 3 out of 5 strength, 4/5 strength on right upper extremity and bilateral lower extremity) Eye Opening: Spontaneous Motor: Obeys Commands Verbal: Oriented GCS Score: 15 - Psych Psych: Normal mood Results - Vitals Vitals: Vital Signs - 24 hr 01/07/24 01/07/24 01/07/24 15:22 16:07 17:45 Temperature 36.6 C Heart Rate 71 73 73 Respiratory 14 17 18 Rate Blood Pressure 138/51 H 135/43 H 135/43 H O2 Saturation 99 100 98 Oxygen O2 Source Room air - EKG (time done) 1524 EKG releavant findings:: EKG personally interpreted by author of this note. Relevant findings are: Rate: Rate (enter#) (72) Rhythm: NSR [place]: Normal Intervals: Normal AR QRS: Normal Ischemia: Normal ST segments Computer interpretation: Agree with computer - Labs Labs: Laboratory Tests 01/07/24 01/07/24 01/07/24 15:53 15:53 15:53 WBC 8.9 RBC 4.04 L Hgb 11.8 L Hct 37.6 MCV 93.1 MCH 29.2 MCHC 31.4 L RDW 15.7 H Plt Count 462 H MPV 8.8 Neut # (Auto) 6.3 Lymph # (Auto) 1.3 L [place] # (Auto) 0.7 Eos # (Auto) 0.4 Baso # (Auto) 0.1 Absolute Nucleated RBC 0.00 Nucleated RBC % 0.0 PT 12.9 H INR 1.2 Sodium 137 Potassium 4.3 Chloride 98 L Carbon Dioxide 32 Anion Gap 7.0 BUN 13 Creatinine 0.8 Estimated GFR (MDRD) 69 L Glucose 83 Calcium 9.5 Total Bilirubin 0.4 AST 9 L ALT < 3 L Alkaline Phosphatase 87 Total Protein 6.7 Albumin 3.4 Globulin 3.3 Albumin/Globulin Ratio 1.0 Lipase < 10 L - Rads (name of study) Head CT without con Relevant Findings:: Final report received, EMP independent interpretation of test, Other (No intracranial hemorrhages or other acute abnormalities or findings.) PD Medical Decision Making - ED course ED course: 78-year-old female presents emergency department via EMS for concerns of possible strokelike symptoms. Patient recently had surgery with a midline incision from a small bowel obstruction. [place] are still in place it appears to be quite fresh. I spoke with telemedicine neurologist who does not think the patient is a candidate for TNK at this point in time given the fact that patient has only left upper extremity weakness which appears to be patient's baseline, NIH score 1. Patient could have had a TIA at home that has now fully resolved this could also be a side effect from pain medications that patient is on if she does appear to be lethargic but arouses easily. We had difficulty getting a lying greater than a 22-gauge for CT angio we are finally able to get one and we will do a CT angio head and neck as well as an MRI. Anticoagulation with patient as well as her about goals of care and patient was very clear in the head and said that she would like to pursue all life-prolonging measures and full interventions. I have given report to Dr. Alix leslie who is further managing patient's care due to change of shift And have updated the patient and her about the plan moving forward. Departure - Departure Forms: PCP List
[2024-01-07] MEDS: ASPIRIN 325 MG TABLET PO STA (15:55)
[2024-01-07 15:58] LABS: BASOPHILS # (AUTO) 0.1 10^3/uL (0.0-0.1); BASOPHILS % (AUTO) 0.7 %; EOSINOPHILS # (AUTO) 0.4 10^3/uL (0.0-0.7); EOSINOPHILS % (AUTO) 4.4 %; HCT - HEMATOCRIT 37.6 % (37.0-47.0); HGB - HEMOGLOBIN 11.8 g/dL (12.0-16.0); LYMPHOCYTES # (AUTO) 1.3 10^3/uL (1.5-3.5); LYMPHOCYTES % (AUTO) 14.3 %; MEAN CORPUSCULAR HEMOGLOBIN 29.2 pg (27.0-31.0); MEAN CORPUSCULAR HGB CONC 31.4 g/dL (32.0-36.0); MEAN CORPUSCULAR VOLUME 93.1 fL (81.0-99.0); MEAN PLATELET VOLUME 8.8 fL (7.9-10.8); MONOCYTES # (AUTO) 0.7 10^3/uL (0.0-1.0); MONOCYTES % (AUTO) 7.9 %; NEUTROPHILS # (AUTO) 6.3 10^3/uL (1.5-6.6); PLT - PLATELET COUNT 462 10^3/uL (130-450); RED BLOOD COUNT 4.04 10^6/uL (4.20-5.40); RED CELL DISTRIBUTION WIDTH 15.7 % (12.0-15.0); WHITE BLOOD COUNT 8.9 x10^3/uL (4.8-10.8)
[2024-01-07 16:03] LABS: INR 1.2 (0.8-1.2); PT - PROTHROMBIN TIME 12.9 secs (9.9-12.6)
[2024-01-07 16:12] LABS: ALBUMIN 3.4 g/dL (3.2-5.5); ALKALINE PHOSPHATASE 87 IU/L (42-121); ALT ALANINE AMINOTRANSFERASE < 3 IU/L (10-60); AST ASPARTATE AMINOTRANSFERASE 9 IU/L (10-42); BILIRUBIN,TOTAL 0.4 mg/dL (0.2-1.0); BUN - BLOOD UREA NITROGEN 13 mg/dL (6-20); CALCIUM 9.5 mg/dL (8.5-10.3); CARBON DIOXIDE - CO2 32 mmol/L (21-32); CHLORIDE 98 mmol/L (101-111); CREATININE 0.8 mg/dL (0.6-1.3); GFR - MDRD 69 (>89); GLUCOSE 83 mg/dL (74-104); LIPASE < 10 U/L (11-82); POTASSIUM 4.3 mmol/L (3.5-4.5); SODIUM 137 mmol/L (135-145); TOTAL PROTEIN 6.7 g/dL (6.4-8.9)
[2024-01-07] MEDS ORDERED: iohexoL-300 100 ML VIAL ONE (17:18)
--- NOTE | 2024-01-07 18:29 | CT Report ---
PROCEDURE: Angio Head/Neck INDICATIONS: aphasia TECHNIQUE: After the administration of intravenous contrast, 1 mm thick sections acquired from the aortic arch t hrough the [place]. 3-dimensional rkehzoa-zkqtvhary-mgfbtyekjk (MIP) and/or volume renderin g reformats were acquired of the central intracranial vasculature and neck separately. For radiation dose reduction, the following was used: automated exposure control, adjustment of mA and/or kV acco rding to patient size. CONTRAST: Omni 300 80ml COMPARISON: None. FINDINGS: Image quality: Diagnostic. HEAD CT: CSF Spaces: Basal cisterns are patent. No extra-axial fluid collections. Ventricles are normal in size and shape. Brain: No significant abnormality is seen for scanning technique. Skull and face: Calvarium and visualized facial bones appear intact, without suspicious lesions. Sinuses: Visualized sinuses and mastoids are clear. HEAD CT ANGIOGRAPHY: Anterior circulation: Intracranial internal carotid arteries are normal in size and flow. The flow within the paired anterior cerebral arteries is normal and symmetric. The flow within the middle cer ebral arteries is normal and symmetric. The anterior communicating artery is seen. No aneurysms are seen. Posterior circulation: Visualized portions of the vertebral arteries demonstrate normal caliber, and join to form a normal appearing basilar artery. Flow within the posterior cerebral arteries is norm al and symmetric. No aneurysms are seen. NECK CT ANGIOGRAPHY: Carotid system: The great vessels demonstrate a conventional anatomy as they arise from the aortic a rch. The origins of the common carotid arteries appear patent. The common carotid arteries demonstr ate normal caliber and courses. The bifurcation regions are both widely patent. The internal caroti d arteries demonstrate normal calibers and courses. Posterior circulation: The origins of the vertebral arteries both appear widely patent. The more topete perior extracranial portions of both vertebral arteries also demonstrate normal courses and calibers. They join to form a normal appearing basilar artery. Soft tissues: Visualized neck soft tissues demonstrate no suspicious abnormalities. Trace left pleu ral effusion. Nodularity with angulated margins in the left upper lobe measuring 1.6 x 0.9 cm. Bones: No suspicious bony lesions. Visualized cervical spine appears normally aligned. IMPRESSION: No significant intracranial arterial abnormality is seen. No significant abnormality is seen within the arteries of the neck. Trace left pleural effusion with a nodularity with angulated margins in the left upper lobe. Recomme nd nonemergent chest CT for further characterization. The estimate of stenosis included in the report of the imaging study was calculated using the NASCET method Reviewed by: Fernando Owen MD on 01/07/2024 6:28 PM PDT Approved by: Fernando Owen MD on 01/07/2024 6:28 PM PDT Station ID: [id number]
--- NOTE | 2024-01-07 18:54 | MRI Report ---
PROCEDURE: Brain WO INDICATIONS: stroke symptoms TECHNIQUE: Noncontrast axial T1 spin echo, axial T2 fast spin echo, sagittal and axial FLAIR, coronal T2 fast sp in echo, axial gradient echo, axial diffusion and ADC through the brain. COMPARISON: Head CT 01/07/2024, 12/05/2023 FINDINGS: Image quality: Excellent. CSF Spaces: Basal cisterns are patent. No extra-axial fluid collections. Ventricles are normal in size and shape. Brain: No intracranial masses or hemorrhage. Rand/white matter interface is normal. Brainstem appe ars normal. Diffusion-weighted images demonstrate no acute ischemic insult. No chronic ischemic ins ults. Normal intravascular flow voids are present. Skull and face: Calvarium has normal marrow signal. Orbits appear normal. Sinuses: Sinuses and mastoids are clear. IMPRESSION: No acute intracranial process. Reviewed by: Fernando Owen MD on 01/07/2024 6:52 PM PDT Approved by: Fernando Owen MD on 01/07/2024 6:52 PM PDT Station ID: [id number]
--- NOTE | 2024-01-07 18:55 | ED Physician Documentation ---
ED Addendum - Addendum Addendum: 01/07/24 18:55 Care from nurse practitioner at [address] angiography of the head was negative save for trace left pleural effusion with nodularity of the left upper lobe, recommending nonemergent chest CT. Brain MRI was negative for stroke. Discussed with patient spouse at bedside to the need for follow-up imaging on the chest and they verbalized understanding. He he is comfortable taking her home. Diagnosis: 1. Slurred speech 2. Chronic left arm weakness Disposition: Discharged home Condition: Stable
[2024-01-07 19:52] VITALS: O2SAT 97
[2024-01-07 20:02] VITALS: BP 104/44
[2024-01-07] MEDS: iohexoL-300 100 ML VIAL IVP ONE (21:08)
== END 2024-01-07 19:55 | disposition home or self-care (01) ==
LOC: EDUNIT# → ED 14:56
DX: R47.81 Slurred speech (principal); R53.1 Weakness; J90 Pleural effusion, not elsewhere classified; G20.A1 Parkinson's disease without dyskinesia, without mention of fluctuations; I10 Essential (primary) hypertension; E05.90 Thyrotoxicosis, unspecified without thyrotoxic crisis or storm; Z79.899 Other long term (current) drug therapy; Z79.51 Long term (current) use of inhaled steroids; Z79.02 Long term (current) use of antithrombotics/antiplatelets; Z91.040 Latex allergy status
CPT/HCPCS: 36415; 70450; 70496; 70498; 70551; 80053; 83690; 85025; 85610; 93005; 99284; A9270; Q9967

== ENCOUNTER 2024-05-30 12:34 | Emergency (ER) | payer MEDICARE, OTHER ==
--- NOTE | 2024-05-30 14:21 | CT Report ---
PROCEDURE: Head WO INDICATIONS: fall/head inj TECHNIQUE: Noncontrast 4.5 mm thick angled axial sections acquired from the foramen magnum to the vertex. For r adiation dose reduction, the following was used: automated exposure control, adjustment of mA and/or kV according to patient size. COMPARISON: 01/07/2024. FINDINGS: Image quality: Excellent. CSF spaces: Basal cisterns are patent. No extra-axial fluid collections. Ventricles are normal in size and shape. Brain: No midline shift. No intracranial masses or hemorrhage. Rand-white matter interface is norm al. Intracranial carotid calcifications. Age-related volume loss and small vessel ischemic change. Skull and face: Calvarium and visualized facial bones are intact, without suspicious lesions. Sinuses: Visualized sinuses and mastoids are clear. IMPRESSION: No acute intracranial pathology. Reviewed by: Addy Godfrey MD on 05/30/2024 2:19 PM PDT Approved by: Addy Godfrey MD on 05/30/2024 2:19 PM PDT Station ID: [id number]
--- NOTE | 2024-05-30 14:31 | ED Physician Documentation ---
History of Present Illness - Stated complaint Stated Complaint: GLF,RT SIDE OF FACE INJ,RT ARM LAC - Chief complaint Chief Complaint: Trauma Hd/Nk - Additonal information Additional information: 79-year-old female with history of hypertension, Parkinson's, asthma, hypothyroidism, osteoarthritis presents emergency department after ground-level fall. Patient says that she was in her kitchen and lost her balance which is normal for her and she fell onto the right side of her face and laid there for about 2 hours and her could get inside. She has bruising to her right eye she has a right upper arm superficial skin tear and she says that she did not lose consciousness. No nausea or vomiting no neurological deficits at this point in time. 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 HEENT: None Psych: Depression Musculoskeletal: Osteoarthritis Derm: None - Past Surgical History Past Surgical History: Yes General: Cholecystectomy, Appendectomy, Bowel surgery Ortho: Rotator cuff repair /MICROWAVE RADIO TECHNICIAN: Hysterectomy HEENT: Cataracts - Present Medications Home Medications: Ambulatory Orders Medication Instructions Recorded Confirmed Amitriptyline HCl 150 mg PO QPM 12/15/14 06/13/21 Docusate Sodium [Stool Softener] 100 mg PO DAILY PRN 12/15/14 06/13/21 Estrogens, Conjugated [Premarin] 0.3 mg PO DAILY 12/15/14 06/13/21 Gabapentin 300 mg PO DAILY 12/15/14 06/13/21 Metoclopramide [Reglan] 10 mg PO TID 12/15/14 06/13/21 Montelukast Sodium 10 mg PO QPM 12/15/14 06/13/21 Multivitamin [Multivitamins] 1 each PO DAILY 12/15/14 06/13/21 Omeprazole 20 mg PO DAILY 12/15/14 06/13/21 Fluticasone Propion/Salmeterol 1 each IH BID 07/24/16 06/13/21 [Advair 250-50 Diskus] Levothyroxine Sodium 50 mcg PO DAILY 07/24/16 06/13/21 buPROPion [Wellbutrin Sr] 100 mg PO DAILY 07/24/16 06/13/21 Albuterol Sulfate [Albuterol 2 puffs IH Q4H PRN 07/06/20 06/13/21 Sulfate Hfa] Furosemide [Lasix] 60 mg PO DAILY PRN 07/06/20 06/13/21 Hydrocodone/Acetaminophen 5 - 325 mg PO Q6H PRN 07/06/20 06/13/21 [Hydrocodone-Acetamin 5-325 mg] Ferrous Gluconate 324 mg PO DAILY 06/13/21 06/13/21 Gabapentin [Neurontin] 300 mg PO 1200 06/13/21 06/13/21 Sucralfate [Carafate] 1 gm PO TIDWM 06/13/21 06/13/21 oxyBUTYnin chloride [Ditropan Xl] 30 mg PO DAILY 06/13/21 06/13/21 Metoprolol Succinate [Toprol Xl] 100 mg PO DAILY 30 Days #60 tablet 06/19/21 Saccharomyces Boulardii [Florastor] 250 mg PO BIDWM 6 Days #12 cap 06/19/21 Clopidogrel [Plavix] 75 mg PO DAILY 03/05/22 03/05/22 Spironolactone [Aldactone] 25 mg PO 03/05/22 Tamsulosin [Flomax] 0.4 mg PO DAILY 03/05/22 03/05/22 HYDROcod/ACETAM 5/325 [[place] 5/325] 1 - 2 ea PO Q6H PRN #14 tablet 10/25/23 cephALEXin [Keflex] 500 mg PO Q6H #20 cap 12/09/23 Ciprofloxacin [Cipro] 250 mg PO BID #14 tablet 12/11/23 - Allergies Allergies/Adverse Reactions: Allergies Allergy/AdvReac Type Severity Reaction Status Date / Time latex AdvReac Severe Rash Verified 05/30/24 13:08 - Social History Does the pt smoke?: No Smoking Status: Never smoker Does the pt drink ETOH?: Yes Does the pt have substance abuse?: No - Immunizations Immunizations are current?: Yes - POLST Patient has POLST: No POLST Status: Full Code (She and her have talked about this. He is a DO NOT RESUSCITATE and never wants to be disabled and leave the house. Although she is talked about this with him, she has never really come to a conclusion. As such, by default, she will be full code until she decides.) PD ED PE NORMAL - Vitals Vital signs reviewed: Yes - General General: Alert and oriented X 3, No acute distress, Well developed/nourished - HEENT HEENT: Other (right eye hematoma) - Cardiac Cardiac: RRR - Respiratory Respiratory: No respiratory distress - Abdomen Abdomen: Soft, Non tender, Non distended, No organomegaly - Derm Derm: Other (right upper arm superfical skin tear, right eye echymosis) - Extremities Extremities: No deformity, No tenderness to palpate, No edema, No calf tenderness / cord - Neuro Neuro: Alert and oriented X 3, presentation team member 2-12 intact, No motor deficit, No sensory deficit, Normal speech Eye Opening: Spontaneous Motor: Obeys Commands Verbal: Oriented GCS Score: 15 - Psych Psych: Normal mood Results - Vitals Vitals: Oxygen O2 Source Room air - Rads (name of study) Head CT without Relevant Findings:: Final report received, EMP independent interpretation of test, Other (No acute intracranial abnormalities or findings) Maxillofacial CT without Relevant Findings:: Final report received, EMP independent interpretation of test, Other (No acute facial fractures, soft tissue laceration around the right cheek/periorbital region no foreign bodies.) Chest CT without Relevant Findings:: Final report received, EMP independent interpretation of test, Other (No acute bony abnormalities or findings no rib fractures or pneumothorax.) Procedures - Laceration (location) right upper arm Length in cm: 18 (inferior to deltoid) Wound type: Flap, Superficial, Clean Anesthesia: LET Wound preparation: Irrigated copiously NS, Wound explored, Multiple flaps aligned Skin layer closure: Steri strips (20) Other: Patient tolerated well, No complications, Tetanus UTD PD Medical Decision Making - ED course ED course: 79-year-old female presents emergency department after sustaining a mechanical ground-level fall. Head CT was complete for further evaluation and there is no acute intracranial abnormalities or findings. We also completed a maxillofacial CT because of the right orbital bruise she has no pain with any extraocular movement and maxillofacial CT without does not reveal any facial fractures or abnormalities. Chest CT was also complete for further evaluation as patient was complaining of his sternum pain with palpation patient says she thinks that she fell on her chest memory down there is no obvious bruising. CT did not reveal any sternum or rib fractures no pneumothorax. She has a right upper arm superficial skin tear it was repaired with multiple Steri-Strips 20 and total and the skin flap was aligned well without any difficulty. Patient's was taught how to care for this at home and return precautions given signs symptoms of infection to watch out for were also given to the patient. Patient told to follow-up with primary care provider all questions answered patient is safe for discharge at this time. Departure - Departure Disposition: 01 Home, Self Care Clinical Impression: Ground-level fall, Hematoma of eye region, Skin tear of right upper extremity Instructions: ED Avulsion Dermal Comments: Thank you for trusting us with your care. We have repaired your right arm skin tear. We have placed Steri-Strips over that right arm keep it covered at all times with nonadhesive gauze you can buy this [id number] at [facility] and please follow-up with your primary care provider in a couple days for wound evaluation. We have completed a head CT a face CT neck CT and a chest CT were not seeing any acute abnormal findings. Please come back in if you are having any worsening symptoms Forms: PCP List Discharge Date/Time: 05/30/24 16:19
[2024-05-30] MEDS: LIDOCAINE-EPINEPH-TETRACAINE 3 ML SYRINGE TOP STA (14:33)
[2024-05-30] MEDS: ACETAMINOPHEN 325 MG TABLET PO STA (14:36)
[2024-05-30 15:11] VITALS: BP 112/80; O2SAT 100
--- NOTE | 2024-05-30 15:46 | CT Report ---
PROCEDURE: Maxillofacial WO INDICATIONS: right eye brusiing after fall TECHNIQUE: Noncontrast 1.5 mm thick axial images acquired from the mandible through the frontal sinuses, with co dominick and sagittal reformatting. For radiation dose reduction, the following was used: automated ex posure control, adjustment of mA and/or kV according to patient size. 3-D reformatted images were pe rformed. COMPARISON: 03/17/2022. Correlation is made with the accompanying imaging. FINDINGS: Image quality: Excellent. Bones and teeth: Orbital jaramillo are intact. Sinus jaramillo show no fracture or deformity. Nasal bones and septum are intact. Visualized portions of the mandible demonstrate no fractures or subluxation. Zygomatic arches are intact. Pterygoid plates are intact. Visualized portions of the skull base an d auditory canals are intact. Sinuses: Paranasal sinuses are aerated, without fluid levels, mucosal thickening, or mucoceles. [place] air cells are aerated. The ostiomeatal complexes are patent, yet they are constitutionally narr owed, with bilateral Dominique cells. Soft tissues: Right cheek/periorbital soft tissue hematoma is seen, with soft tissue gas. No radiopaq ue foreign bodies are seen. Vascular: Visualized vascular structures appear normal in the absence of contrast. Bony vascular fo ramina and canals are intact. IMPRESSION: Right cheek/periorbital soft tissue laceration, with soft tissue swelling and soft tissu e gas. No radiopaque foreign bodies are seen. Reviewed by: Shola Bradley MD on 05/30/2024 2:45 PM AKDT Approved by: Shola Bradley MD on 05/30/2024 2:45 PM AKDT Station ID: [id number]
--- NOTE | 2024-05-30 15:50 | CT Report ---
PROCEDURE: Chest WO INDICATIONS: sternum pain after gLF TECHNIQUE: A CT scan of the chest was performed. Intravenous contrast media was not administered. Images were re corded and evaluated at appropriate window settings. Reformats: axial MIP of the chest, coronal and s agittal. For radiation dose reduction, the following was used: automated exposure control, adjustment of mA and/or kV according to patient size. COMPARISON: Correlation is made with the accompanying imaging. FINDINGS: Image quality: Diagnostic. Chest wall and lower neck: No thyroid nodule which requires sonographic follow up. No axillary or sup raclavicular adenopathy by size. Lungs and pleura: No consolidation. No pleural effusions. No pneumothorax. No suspicious pulmonary n odules which require follow up. Mediastinum: Heart size is normal. No pericardial effusion. Moderate coronary calcification can be se en. There is a left atrial appendage closure device seen. No large vessel abnormality. No mediastinal adenopathy by size criteria. Bones: No aggressive osseous abnormality. Scrutiny the sternum. No CT abnormality of the sternum can be seen. No sternal fracture is seen. No d isplaced rib fracture can be seen. Age-appropriate degenerative changes are seen. There is accentuat ed thoracic kyphosis. Upper Abdomen: Gastroesophageal junction postoperative change is seen. Cholecystectomy clips are seen . There is a right ureteral stent seen in place. The left right kidney is atrophic. At the inferior p ole of the right kidney, there is a nonobstructing stone seen, measuring 5 mm and 500 Hounsfield unit s A nonobstructing left-sided kidney stone is seen, 2 mm. IMPRESSION: No significant abnormality of the sternum can be seen. No rib fracture or pneumothorax is seen. Additional findings: Postoperative change, with a left atrial closure device. Moderate coronary artery calcification Gastroesophageal junction postoperative change Cholecystectomy Right ureteral stent Bilateral nonobstructing kidney stones Reviewed by: Shola Bradley MD on 05/30/2024 2:49 PM AKDT Approved by: Shola Bradley MD on 05/30/2024 2:49 PM AKDT Station ID: [id number]
== END 2024-05-30 16:19 | disposition home or self-care (01) ==
LOC: ED 12:34
DX: S41.111A Laceration without foreign body of right upper arm, initial encounter (principal); S00.11XA Contusion of right eyelid and periocular area, initial encounter; W18.39XA Other fall on same level, initial encounter; Y92.009 Unspecified place in unspecified non-institutional (private) residence as the place of occurrence of the external cause; G20.A1 Parkinson's disease without dyskinesia, without mention of fluctuations; J45.909 Unspecified asthma, uncomplicated; I10 Essential (primary) hypertension; Z79.899 Other long term (current) drug therapy
CPT/HCPCS: 70450; 70486; 71250; 99284; A9270